=== PATIENT | female | born 1955 | race Caucasian/White ===

== ENCOUNTER 2020-08-24 11:00 | Outpatient (RCR) | payer MEDICARE, SELFPAY | END 2020-08-26 23:55 | disposition home or self-care (01) | LOC: HO.PAOS 11:00 | PROVIDERS: Visit Provider Counselor Mental Health | DX: F32.9 Major depressive disorder, single episode, unspecified (principal) | CPT/HCPCS: 90834 ==

== ENCOUNTER 2021-07-01 10:48 | Outpatient (REF) | payer MEDICARE, SELFPAY ==
[2021-07-01 11:09] LABS: MANUAL DIFF FLAG NO
[2021-07-01 11:49] LABS: Basophils Percent Auto 0.6 % (0-2); Eosinophils Absolute Auto 0.1 X10*3/uL (0.0-0.4); Eosinophils Percent Auto 2.2 % (0-4); Hematocrit 46.8 % (37-47); Hemoglobin 15.5 g/dl (12.0-16.0); Imm Gran Abs Auto 0.01 X10*3/uL (0.00-0.03); Imm Gran Pct Auto 0.2 % (0.0-0.4); Lymphocytes Absolute Auto 2.1 X10*3/uL (1.2-4.9); Lymphocytes Percent Auto 39.8 % (20-40); Mean Corpuscular HGB Conc 33.1 g/dl (31.0-35.0); Mean Corpuscular Volume 96.7 fL (80-98); Mean Platelet Volume 11.3 fL (9.4-12.3); Monocytes Absolute Auto 0.5 X10*3/uL (0.1-1.2); Monocytes Percent Auto 9.3 % (2-11); Neutrophils Absolute Auto 2.6 X10*3/uL (2.0-8.3); Neutrophils Percent Auto 47.9 % (45-73); Platelet Count 152 X10*3/uL (160-400); Red Blood Count 4.84 X10*6/uL (4.20-5.50); Red Cell Distribution Width 12.6 % (11.0-16.0); White Blood Count 5.4 X10*3/uL (4.8-10.8)
[2021-07-01 12:20] LABS: Alanine Aminotransferase 40 U/L (0-31); Albumin Level 4.1 g/dL (3.5-5.0); Alkaline Phosphatase 90 U/L (39-117); Anion Gap 12 (12-20); Aspartate Amino Transferase 42 U/L (5-31); Bilirubin Total 0.9 mg/dL (0.0-1.0); Blood Urea Nitrogen 15 mg/dL (9-16); Calcium 9.5 mg/dL (8.4-10.2); Carbon Dioxide 29 mmol/L (22-29); Chloride 107 mmol/L (96-108); Cholesterol 183 mg/dL; Estimated Glomerular Filt Rate 48; Glucose Fasting 126 mg/dL (60-99); HDL Cholesterol 33 mg/dL; LDL Cholesterol Calculated 109 mg/dl; Potassium 4.5 mmol/L (3.3-5.1); Sodium 143 mmol/L (135-145); Total Protein 7.3 g/dL (6.5-8.0); Triglycerides 208 mg/dL
[2021-07-01 12:24] LABS: Thyroid Stimulating Hormone 3.06 uIU/mL (0.32-4.0)
== END 2021-07-01 10:49 | disposition home or self-care (01) ==
LOC: HO.LAB 10:48
PROVIDERS: PCP Internal Medicine; Visit Provider Internal Medicine
DX: Z00.00 Encounter for general adult medical examination without abnormal findings (principal); E03.9 Hypothyroidism, unspecified; E11.9 Type 2 diabetes mellitus without complications
CPT/HCPCS: 36415; 80053; 80061; 84443; 85025

== ENCOUNTER 2021-09-30 10:21 | Outpatient (REF) | payer MEDICARE, SELFPAY ==
[2021-09-30 10:45] LABS: MANUAL DIFF FLAG NO
[2021-09-30 11:22] LABS: Basophils Percent Auto 0.5 % (0-2); Eosinophils Absolute Auto 0.1 X10*3/uL (0.0-0.4); Eosinophils Percent Auto 1.6 % (0-4); Hematocrit 50.2 % (37.0-47.0); Hemoglobin 16.7 g/dl (12.0-16.0); Imm Gran Abs Auto 0.01 X10*3/uL (0.00-0.03); Imm Gran Pct Auto 0.2 % (0.0-0.4); Lymphocytes Absolute Auto 2.3 X10*3/uL (1.2-4.9); Lymphocytes Percent Auto 39.3 % (20-40); Mean Corpuscular HGB Conc 33.3 g/dl (31.0-35.0); Mean Corpuscular Hemoglobin 31.9 pg (27.0-33.0); Mean Platelet Volume 10.9 fL (9.4-12.3); Monocytes Absolute Auto 0.5 X10*3/uL (0.1-1.2); Monocytes Percent Auto 8.5 % (2-11); Neutrophils Absolute Auto 2.9 x10*3/uL (2.0-8.3); Neutrophils Percent Auto 49.9 % (45-73); Platelet Count 191 X10*3/uL (160-400); Red Blood Count 5.23 X10*6/uL (4.20-5.50); Red Cell Distribution Width 12.4 % (11.0-16.0); White Blood Count 5.8 X10*3/uL (4.8-10.8)
[2021-09-30 11:50] LABS: Alanine Aminotransferase 40 U/L (0-31); Albumin Level 4.2 g/dL (3.5-5.0); Alkaline Phosphatase 78 U/L (39-117); Anion Gap 13 (12-20); Aspartate Amino Transferase 45 U/L (5-31); Bilirubin Direct 0.5 mg/dL (0.0-0.5); Bilirubin Total 1.5 mg/dL (0.0-1.0); Blood Urea Nitrogen 14 mg/dL (9-16); C Reactive Protein 0.13 mg/dL (< or = 0.50); Calcium 9.8 mg/dL (8.4-10.2); Carbon Dioxide 27 mmol/L (22-29); Chloride 107 mmol/L (96-108); Estimated Glomerular Filt Rate 45; Glucose Random 115 mg/dL (60-115); Potassium 4.2 mmol/L (3.3-5.1); Sodium 143 mmol/L (135-145); Total Protein 7.7 g/dL (6.5-8.0)
[2021-09-30 12:07] LABS: Erythrocyte Sedimentation Rate 4 MM/HR (0-20)
[2021-10-01 12:57] LABS: Gliadin Deamidated IgA Ab <1.0 U/mL; Gliadin Deamidated IgG Ab <1.0 U/mL; Transglutaminase Ab IgG <1.0 U/mL; Transglutaminase IgA <1.0 U/mL
[2021-10-01 13:32] LABS: Immunoglobulin A 363 mg/dL (70-320)
[2021-10-05 13:05] LABS: Endomysial IgA Antibody Negative (Negative)
== END 2021-09-30 10:22 | disposition home or self-care (01) ==
LOC: HO.LAB 10:21
PROVIDERS: PCP Internal Medicine; Visit Provider Internal Medicine
DX: R19.7 Diarrhea, unspecified (principal)
CPT/HCPCS: 36415; 80048; 80076; 82784; 85025; 85652; 86140; 86231; 86258; 86364

== ENCOUNTER 2021-10-17 15:41 | Outpatient (REF) | payer MEDICARE, SELFPAY ==
--- NOTE | ~2021-10-17 | XR_ITS ---
EXAMINATION: XR ANKLE, RIGHT CLINICAL INFORMATION: Right ankle pain and lateral swelling for 6 days. No known injury. COMPARISON: None TECHNIQUE: AP, lateral, and mortise views of the right ankle. FINDINGS: There is mild soft tissue swelling, greater on lateral side. The bony structures appear intact and show no fracture, dislocation, or destructive reactive process. There is normal bony mineralization. No periarticular demineralization. No periostitis. There is mild spurring involving the distal anterior and posterior tibia and caudal tip medial malleolus. The ankle joint shows no narrowing or erosive change or definite chondrocalcinosis. There is no erosive change. Visualized subtalar joint unremarkable. There are small posterior and moderate plantar calcaneal spurs. Scattered benign mineralization is present within the mid Achilles tendon consistent with calcific tendinosis. The retrocalcaneal recess is preserved. XR/XR ankle RT 2V IMPRESSION: 1. No fracture, dislocation, destructive process, or arthropathy. 2. Posterior and plantar calcaneal spurs. 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
== END 2021-10-17 15:42 | disposition home or self-care (01) ==
LOC: HO.XRAY 15:41
PROVIDERS: PCP Internal Medicine; Visit Provider Internal Medicine
DX: M25.571 Pain in right ankle and joints of right foot (principal)
CPT/HCPCS: 73600

== ENCOUNTER → 2021-11-17 14:06 | Outpatient (BNVA) | payer MEDICARE, SELFPAY | PROVIDERS: PCP Internal Medicine; Visit Provider Urology | DX: Z13.89 Encounter for screening for other disorder (principal) ==

== ENCOUNTER 2021-12-29 10:19 | Outpatient (REF) | payer MEDICARE, SELFPAY ==
--- NOTE | ~2021-12-29 | US_ITS ---
EXAMINATION: US ABDOMEN COMPLETE CLINICAL INFORMATION: Unspecified abdominal pain. COMPARISON: CT abdomen and pelvis 10/01/2019. Ultrasound abdomen 07/09/2017. TECHNIQUE: Real-time imaging of the abdominal viscera. FINDINGS: PANCREAS: Normal head and body. The tail is obscured by bowel gas. ABDOMINAL AORTA: The proximal, mid, and distal segments are normal in caliber. INFERIOR VENA CAVA: Visualized portions are normal. LIVER: The liver is normal in size. The liver contour is normal. There is diffuse increased liver parenchymal echogenicity, suggestive of hepatic steatosis. No focal hepatic lesion. There is no intrahepatic biliary duct dilatation seen. GALLBLADDER: Surgically absent. COMMON BILE DUCT: Normal in caliber measuring 0.8 cm in diameter. RIGHT KIDNEY: Normal. No hydronephrosis. No renal calculi or focal parenchymal lesions. The kidney measures 10.8 cm in maximum dimension. LEFT KIDNEY: There is a simple cyst in the lower pole measuring up to 0.9 cm. No hydronephrosis or renal calculi. The kidney measures 11.7 cm in maximum dimension. SPLEEN: Normal. The spleen measures 9.0 cm in maximum dimension. FREE FLUID: None. US/US abdomen complete IMPRESSION: Again demonstrated is an echogenic liver, likely representing hepatic steatosis. Again demonstrated is a 0.9 cm simple appearing cyst in the lower pole of the left kidney, for which no further follow-up is necessary.
== END 2021-12-29 10:20 | disposition home or self-care (01) ==
LOC: HO.US 10:19
PROVIDERS: Visit Provider Internal Medicine
DX: R10.9 Unspecified abdominal pain (principal)
CPT/HCPCS: 76700

== ENCOUNTER → 2022-01-11 15:50 | Outpatient (BNVA) | payer MEDICARE, SELFPAY | PROVIDERS: PCP Internal Medicine; Visit Provider Urology | DX: Z13.89 Encounter for screening for other disorder (principal) | CPT/HCPCS: Q3014 ==

== ENCOUNTER 2022-01-16 06:37 | Day surgery (SDC) | payer MEDICARE, SELFPAY ==
[2022-01-11 08:17] VITALS: BMI 36.8
--- NOTE | 2022-01-13 10:19 | P.CONAN_ITS ---
Documented by User: Nereida Mera NP 01/13/22 10:20 HPI - Anesthesia Eval Consult details Narrative: 66yo F for Interstim Generator Implant and lead change PMFSH Active Problems Active Problems: All Active Problems (Updated 01/11/22 @ 16:10 by Jeffy Lutz MD) Overactive bladder (Acute) Sinusitis (Acute) Abdominal pain (Acute) Obesity (Acute) Hypertension (Acute) Past Medical History Medical History Anxiety Breast cancer, right Depression Graves disease History of stress incontinence Hypertension Obesity Family History Family History Father Diabetes Mother Hypertension Throat cancer Maternal Grandmother Diabetes Maternal Uncle Cancer Surgical History Surgical History History of arthroscopy of right knee History of carpal tunnel release History of cholecystectomy History of D&C History of hip replacement History of inguinal hernia repair History of lumpectomy of right breast History of surgery History of tonsillectomy History of total abdominal hysterectomy and bilateral salpingo-oophorectomy History of wisdom tooth extraction Hx of colonoscopy Hx of total mastectomy of right breast Social History Social History Housing: House Alcohol intake: never Patient Tobacco Use Status: Never used Tobacco e-Cigarette/Vaping Use: Never Used Second Hand Smoke Exposure: No Use of substances other than those prescribed or required for medical reasons: No Are you DNR?: No Advance Directives: No Advance Directives Information Provided: Yes Recently lost weight without trying: No Nutrition Risks: No Nutritional Risk service: No Current occupational status: retired Current occupational exposures/hazards: No Cognitive needs: No Hearing needs: No Vision needs: No Meds Allergies Allergy/AdvReac Type Severity Reaction Status Date / Time lactose [LACTOSE] Allergy Unknown SEVERE Verified 01/11/22 15:51 DIARRHEA- CRAMPS Home Medications Medication Instructions Recorded Confirmed Last Taken Type omeprazole 20 mg capsule,delayed 20 mg PO DAILY 07/15/20 01/11/22 01/16/22 History release amoxicillin 500 mg capsule 4 cap PO 01/16/22 01/16/22 History Exam Exam Date and Time: January 13, 2022 1019 Height,Weight and Vital Signs: Height 5 ft 8 in Weight 109.769 kg Pertinent Lab Results Pertinent Lab Results: Laboratory Tests 09/30/21 09/30/21 10:42 10:42 WBC 5.8 Hgb 16.7 H Hct 50.2 H Plt Count 191 Sodium 143 Potassium 4.2 Chloride 107 Carbon Dioxide 27 BUN 14 Creatinine 1.21 Assessment and Plan Assessment Anesthesia Assessment: Chart Reviewed Documented by User: Jenelle Quintero MD 01/16/22 08:37 [facility] Past Medical History Medical History Anxiety Breast cancer, right Depression Graves disease History of stress incontinence Hypertension Obesity Family History Family History Father Diabetes Mother Hypertension Throat cancer Maternal Grandmother Diabetes Maternal Uncle Cancer Surgical History Surgical History History of arthroscopy of right knee History of carpal tunnel release History of cholecystectomy History of D&C History of hip replacement History of inguinal hernia repair History of lumpectomy of right breast History of surgery History of tonsillectomy History of total abdominal hysterectomy and bilateral salpingo-oophorectomy History of wisdom tooth extraction Hx of colonoscopy Hx of total mastectomy of right breast History of Problems with Anesthesia: No Social History Social History Housing: House Alcohol intake: never Patient Tobacco Use Status: Never used Tobacco e-Cigarette/Vaping Use: Never Used Second Hand Smoke Exposure: No Use of substances other than those prescribed or required for medical reasons: No Are you DNR?: No Advance Directives: No Advance Directives Information Provided: Yes Recently lost weight without trying: No Nutrition Risks: No Nutritional Risk service: No Current occupational status: retired Current occupational exposures/hazards: No Cognitive needs: No Hearing needs: No Vision needs: No Meds Allergies Allergy/AdvReac Type Severity Reaction Status Date / Time lactose [LACTOSE] Allergy Unknown SEVERE Verified 04/27/22 15:51 DIARRHEA- CRAMPS Home Medications Medication Instructions Recorded Confirmed Last Taken Type omeprazole 20 mg capsule,delayed 20 mg PO DAILY 07/15/20 01/11/22 01/16/22 History release amoxicillin 500 mg capsule 4 cap PO 01/16/22 01/16/22 History Exam Airway Mallampati Class: III TM Dist: >3cm Neck ROM: Full Loose/Missing/Broken Teeth: No Heart: RRR Lungs: CTA Assessment and Plan Assessment Anesthesia Assessment: Anesthesia Plan Discussed Final Anesthetic Review History of Problems with Anesthesia: No NPO: Yes ASA Class: II Final Preanesthetic Review: Meds/Allgs Chart Reviewed, Consent Obtained/Reviewed and Anes Risks/Benef Reviewed Patient Risk: Low Procedure Risk: Low Anesthetic Plan Anesthetic Plan: MAC: Disposition: Standard PACU
--- NOTE | ~2022-01-16 | FL_ITS ---
EXAMINATION: XR FLUOROSCOPY WITH IMAGES CLINICAL INFORMATION: InterStim generator implant COMPARISON: CT abdomen and pelvis noncontrast 10/01/2019 TECHNIQUE: Fluoroscopy performed by Dr. Jeffy Lutz. Fluoroscopy time: 1.7 minutes Cumulative dose: 102.10 mGy Images: 2 FINDINGS: There is an electrode overlying the lumbosacral spine with tip at left sacral coccygeal foramen extending just anterior to the bony cortex. There is likely a surgical sponge overlying the lower lumbar spine on frontal view. There is transitional vertebrae lumbosacral junction with left hemisacralization right hemilumbarization. FL/FL guidance in OR IMPRESSION: Fluoroscopy for urologic procedure.
[2022-01-16 06:59] VITALS: BMI 36.8
[2022-01-16 07:12] VITALS: BP 121/68; PULSE 57; RESP 16; TEMP 35.7; O2SAT 97
[2022-01-16] MEDS: Lactated Ringers 1,000 ML 100 ML IVCONT (07:29)
--- NOTE | 2022-01-16 07:53 | MHC.SHP ---
Pre-Procedural Eval Section A Date of Service: 01/16/22 The patient is an INPATIENT: No Changes since office visit: No Cold of Flu in the past 2 weeks, No New Medical Problems, No Changes in Medication and No Patient answered all questions The History & Physical has been completed within 30 days and I have reviewed it.: Yes Section B Chief Complaint: urge incontinence Details of Present Illness: chnage interstim, hardware Allergies: Allergies Allergy/AdvReac Type Severity Reaction Status Date / Time lactose [LACTOSE] Allergy Unknown SEVERE Verified 01/11/22 15:51 DIARRHEA- CRAMPS Review of Systems Sugical H&P ROS: Negative: Constitution, Cardiovascular, Respiratory, Neurological, Psychiatric, Hem-Onc, Allergic/Immunologic, Gastrointestinal, Genitourinary, Musculoskeletal, Integumentary, Endocrine and Eyes/Ears/Nose/Throat Exam Surgical H&P Exam: Normal: HEENT, Normal: Heart, Normal: Lungs, Normal: Extremities, Normal: Abdomen, Normal: Skin and Normal: Neurological Plan Diagnosis/Plan: Unchanged I have reviewed the history and physical and performed a pertinent physical examination on my patient. No changes have occurred unless specified.
[2022-01-16 09:30] VITALS: BP 112/70; PULSE 59; RESP 16; TEMP 36.4; O2SAT 98
--- NOTE | 2022-01-16 09:36 | W.PM.OPN ---
Operative Note Operative Note Date of Service: 01/16/22 Narrative: PreOperative Diagnosis: Overactive bladder with urinary urgency and frequency Post Operative Diagnosis: Overactive bladder with urinary urgency and frequency Procedure: 1.) Removal of InterStim lead 2.) Removal of InterStim battery 3.) Placement of InterStim lead 4.) Placement of InterStim battery Surgeon: Dr Jeffy Lutz Anesthesia: sedation Indications for procedure: failed battery - had worked well for 10 years Procedure: After informed consent was verified the patient was brought to the operating room. Sedation anesthesia was administered per protocol. The patient was placed in a prone position and prepped and draped in a sterile fashion. Safety pause time-out was performed. Local anesthetic was infiltrated around the initial battery pocket incision on the right lateral superior buttock. Incision was made and taken down till the battery was encountered. The battery pocket was opened and a battery brought out to the skin. Using the C-arm and a snap the lead entering S3 on the right side was targeted. Local anesthetic was infiltrated around the prior incision and incision made through the skin. Using blunt dissection the original lead was isolated and brought up through our skin incision. This was get disconnected from the battery to give us the full lead in the sacral position. The lead was dissected down until we could palpate the transition to the thickened plastic. Using a right angle clamp we were able to fully withdrawal the old lead from its position in the S3 foramen. Using the C-arm in an AP and lateral view the finding needle was introduced into the S3 foramen running from a caudad to chordal direction. Using the communications lead we could confirm good toe movement and Hanane response. The internal introducer from the needle was removed and the control lead placed. The find needle was removed and the dilator sheath introduced. Under fluoroscopic guidance the dilator sheath was advanced till the marker was seen mid point through the sacral bone on the lateral image. The internal cannula from the dilator was removed. The guidewire was removed. The active lead was then introduced through the dilator sheath and advanced so that the 3rd and 4th marked electrodes crossed the internal boundary line of the sacrum. The testing electrode was then hooked up to each of the wire electrodes 0 through 3 and good Hanane and toe response is was seen at low amplitude 2.0 amps. This confirmed the clinically relevant position of the live wire. Wire was repositioned for more downward angle and retested in position. Under live fluoroscopy the introducer sheath was removed deploying the tines of the wire ensuring that the live wire remained in the previously described position. The tunneling device was then used to bridge the distance between the sacral vertical incision and the desired location of the battery pocket. The live wire was placed through the tunneling device and brought out into the battery pocket. The sacral incision was washed with water. A new battery was connected to the live wire and placed into the subcutaneous pocket. The battery was tested and had positive continuous pickling line pickler and displayed normal impedance on all 4 channels. The battery pocket had been washed with sterile water prior to placement of the battery. Interrupted 3-0 Vicryl sutures were used to close the defect spaces and bring skin edges together. Running 4-0 Monocryl sutures were used to appose skin edges. Incisions were dressed using skin glue followed by Tegaderm dressing. Patient tolerated procedure well was extubated in operating room transferred in stable condition to the recovery area. CPT full device replacement 58505, 20327, [id number] Levels for Motor Effect - 0 - 0.7 - 1 - 0.7 - 2 - 0.9 - 3 - 1.0
[2022-01-16 09:45] VITALS: BP 111/60; PULSE 55; RESP 16; O2SAT 96
[2022-01-16 10:00] VITALS: BP 117/67; PULSE 55; RESP 16; TEMP 36.3; O2SAT 96
[2022-01-16 10:13] VITALS: BP 119/68; PULSE 55; RESP 16; TEMP 36.3; O2SAT 96
== END 2022-01-16 11:25 | disposition home or self-care (01) ==
PROVIDERS: PCP Internal Medicine; Visit Provider Urology
PROC: (CPT 64590; principal; 2022-01-16 08:30)
DX: N39.41 Urge incontinence (principal); N39.3 Stress incontinence (female) (male); N32.81 Overactive bladder; R35.0 Frequency of micturition; F41.1 Generalized anxiety disorder; Z85.3 Personal history of malignant neoplasm of breast; E05.00 Thyrotoxicosis with diffuse goiter without thyrotoxic crisis or storm; I10 Essential (primary) hypertension; E66.9 Obesity, unspecified; Z79.899 Other long term (current) drug therapy
CPT/HCPCS: 64590; 64561; C1767; C1778; C1787; J0690; J2250; J3010

== ENCOUNTER → 2022-02-02 10:51 | Outpatient (BNVA) | payer MEDICARE, SELFPAY | PROVIDERS: PCP Internal Medicine; Visit Provider Urology | DX: Z13.89 Encounter for screening for other disorder (principal) ==

== ENCOUNTER 2022-06-23 09:08 | Outpatient (REF) | payer MEDICARE, SELFPAY ==
[2022-06-23 09:24] LABS: MANUAL DIFF FLAG NO
[2022-06-23 09:53] LABS: Basophils Percent Auto 0.5 % (0-2); Eosinophils Absolute Auto 0.1 X10*3/uL (0.0-0.4); Hematocrit 47.2 % (37.0-47.0); Hemoglobin 15.8 g/dl (12.0-16.0); Imm Gran Abs Auto 0.01 X10*3/uL (0.00-0.03); Imm Gran Pct Auto 0.2 % (0.0-0.4); Lymphocytes Absolute Auto 2.9 X10*3/uL (1.2-4.9); Lymphocytes Percent Auto 43.4 % (20-40); Mean Corpuscular HGB Conc 33.5 g/dl (31.0-35.0); Mean Corpuscular Hemoglobin 31.9 pg (27.0-33.0); Mean Corpuscular Volume 95.2 fL (80.0-98.0); Mean Platelet Volume 11.2 fL (9.4-12.3); Monocytes Absolute Auto 0.6 X10*3/uL (0.1-1.2); Monocytes Percent Auto 9.7 % (2-11); Neutrophils Absolute Auto 2.9 x10*3/uL (2.0-8.3); Neutrophils Percent Auto 44.2 % (45-73); Platelet Count 176 X10*3/uL (160-400); Red Blood Count 4.96 X10*6/uL (4.20-5.50); Red Cell Distribution Width 12.7 % (11.0-16.0); White Blood Count 6.6 X10*3/uL (4.8-10.8)
[2022-06-23 10:34] LABS: Alanine Aminotransferase 26 U/L (0-31); Albumin Level 4.3 g/dL (3.5-5.0); Alkaline Phosphatase 89 U/L (39-117); Anion Gap 15 (12-20); Aspartate Amino Transferase 33 U/L (5-31); Bilirubin Total 0.9 mg/dL (0.0-1.0); Blood Urea Nitrogen 22 mg/dL (9-16); Calcium 9.4 mg/dL (8.4-10.2); Carbon Dioxide 28 mmol/L (22-29); Chloride 105 mmol/L (96-108); Cholesterol 176 mg/dL; Estimated Glomerular Filt Rate 46; Glucose Fasting 115 mg/dL (60-99); HDL Cholesterol 35 mg/dL; LDL Cholesterol Calculated 99 mg/dl; Potassium 4.6 mmol/L (3.3-5.1); Sodium 143 mmol/L (135-145); Total Protein 7.5 g/dL (6.5-8.0); Triglycerides 211 mg/dL
[2022-06-23 11:00] LABS: Thyroid Stimulating Hormone 3.82 uIU/mL (0.32-4.0)
== END 2022-06-23 09:09 | disposition home or self-care (01) ==
LOC: HO.LAB 09:08
PROVIDERS: PCP Internal Medicine; Visit Provider Internal Medicine
DX: Z13.0 Encounter for screening for diseases of the blood and blood-forming organs and certain disorders involving the immune mechanism (principal); E03.9 Hypothyroidism, unspecified; E78.5 Hyperlipidemia, unspecified; I10 Essential (primary) hypertension
CPT/HCPCS: 36415; 80053; 80061; 84443; 85025

== ENCOUNTER 2022-07-21 11:00 | Outpatient (RCR) | payer MEDICARE, SELFPAY ==
[2022-05-25 11:14] VITALS: BP 124/70
== END 2022-07-24 13:41 | disposition home or self-care (01) ==
LOC: HO.PT 11:00
PROVIDERS: Visit Provider Physician Assistant
DX: M70.62 Trochanteric bursitis, left hip (principal)
CPT/HCPCS: 97110; 97140; 97161; 97530

== ENCOUNTER 2022-09-05 08:22 | Observation (INO) | payer MEDICARE, SELFPAY ==
[2022-09-05] VITALS (8 sets, daily range): BP systolic 90–135; BP diastolic 48–74; PULSE 55–72; RESP 17–21; TEMP 36.1–37.1; O2SAT 96–97; BMI 38.2
--- NOTE | ~2022-09-05 | XR_ITS ---
EXAMINATION: XR CHEST CLINICAL INFORMATION: Cough COMPARISON: Chest x-ray 11/15/2015 TECHNIQUE: Frontal view of the chest was obtained. FINDINGS: Cardiac silhouette is normal in size. The lungs are adequately aerated. There is mild asymmetric elevation right hemidiaphragm. There is no lobar consolidation. No pleural effusion or pneumothorax. XR/XR chest 1V IMPRESSION: No acute pulmonary pathology.
--- NOTE | 2022-09-05 08:27 | ECG_ITS ---
Test Reason : cough/chest pain Blood Pressure : / mmHG Vent. Rate : 059 BPM Atrial Rate : 059 BPM P-R Int : 170 ms QRS Dur : 090 ms QT Int : 440 ms P-R-T Axes : 043 -13 000 degrees QTc Int : 435 ms Sinus bradycardia with sinus arrhythmia Nonspecific ST and T wave abnormality Abnormal ECG When compared with ECG of 15-NOV-2015 12:06, T wave inversion now evident in Anterior leads Referred By: Generic ED Physician Electronically Signed By:Angel Browning
--- NOTE | 2022-09-05 09:29 | ED_ITS ---
HPI - General Adult General Chief complaint: General Medical Stated complaint: Chest pain Time Seen by Provider: 09/05/22 09:23 Source: patient and family (Son, Tavo who is a top and seat cover fitter) Mode of arrival: ambulatory Limitations: no limitations History of Present Illness HPI narrative: 67-year-old female who presents emergency department for evaluation of chest pain that woke her from sleep. She states the pain woke her up at 07:00 hours. She describes the pain as a heaviness is if an elephant was sitting on her chest. The pain was 8/10. The pain was worse with breathing. She did feel short of breath. She denied lightheadedness, dizziness, diaphoresis, nausea, vomiting, radiation of the pain to her neck, jaw, arms or back. Patient's son took her blood pressure and it was 151/88 the heart rate of 60. He gave her 2 Tylenol orally which did not relieve the pain. At the time of my evaluation she states the pain is 8/10. Patient states that she was ill 2 weeks prior with cold-like symptoms which included rhinorrhea, nonproductive cough, shortness of breath with coughing. She denied dyspnea on exertion, nausea, vomiting, diarrhea. Onset (ago): hour(s) (2 09/18) Location: chest Radiation: non-radiation Severity: severe Severity scale (1-10): 8 Quality: crushing (Heaviness) Pain Consistency: constant Relieving factors: none Exacerbating factors: other (Breathing) Associated symptoms: shortness of breath Treatments prior to arrival: other (Tylenol) Related Data Home Medications Medication Instructions Recorded Confirmed cholecalciferol (vitamin D3) 50 50 mcg PO DAILY 09/05/22 09/05/22 mcg (2,000 unit) tablet (Vitamin D3) multivitamin 1 tab PO DAILY 09/05/22 09/05/22 omeprazole 20 mg capsule,delayed 20 mg PO DAILY@0630 09/05/22 09/05/22 release Previous Rx's Medication Instructions Recorded atenolol 100 mg tablet 100 mg PO DAILY #90 tabs 12/07/21 lorazepam 0.5 mg tablet 0.5 mg PO DAILY PRN anxiety #60 02/09/22 tabs bupropion HCl 200 mg tablet,12 hr 200 mg PO BID #180 tabs 02/27/22 sustained-release Allergies Allergy/AdvReac Type Severity Reaction Status Date / Time lactose [LACTOSE] Allergy Unknown SEVERE Verified 06/22/22 13:21 DIARRHEA- CRAMPS Review of Systems Review of Systems: Yes all other systems are reviewed and are negative [facility] Past Medical History Medical History Anxiety Breast cancer, right Depression Graves disease History of stress incontinence Hypertension Obesity Surgical History History of arthroscopy of right knee History of carpal tunnel release History of cholecystectomy History of D&C History of hip replacement History of inguinal hernia repair History of lumpectomy of right breast History of surgery History of tonsillectomy History of total abdominal hysterectomy and bilateral salpingo-oophorectomy History of wisdom tooth extraction Hx of colonoscopy Hx of total mastectomy of right breast Family History Family History Father Diabetes Mother Hypertension Throat cancer Maternal Grandmother Diabetes Maternal Uncle Cancer Social History Social History Housing: House Alcohol intake: never Patient Tobacco Use Status: Never used Tobacco Smoked in Last 30 Days: No e-Cigarette/Vaping Use: Never Used Second Hand Smoke Exposure: No Use of substances other than those prescribed or required for medical reasons: No Advance Directives: No Advance Directives Information Provided: Yes Patient : No service: No Current occupational status: retired Current occupational exposures/hazards: No Cognitive needs: No Hearing needs: No Vision needs: No Physical Exam ED Vital Signs: Vital Signs - 24 hr 09/05/22 08:24 09/05/22 09:52 09/05/22 09:57 Temperature 96.9 F Pulse Rate 62 62 62 Respiratory Rate 18 18 Blood Pressure 125/74 135/72 135/72 Pulse Oximetry 96 97 Oxygen Delivery Method Room Air Room Air 09/05/22 10:03 09/05/22 10:07 09/05/22 13:31 Temperature Pulse Rate 62 55 66 Respiratory Rate 17 Blood Pressure 117/71 90/48 L 114/57 L Pulse Oximetry 96 Oxygen Delivery Method Room Air 09/05/22 14:16 Temperature Pulse Rate 63 Respiratory Rate 21 H Blood Pressure 101/58 L Pulse Oximetry 96 Oxygen Delivery Method Room Air BMI result Body Mass Index 38.2 Const General: cooperative and no acute distress Orientation/consciousness: oriented to person and oriented to place Limitations: no limitations HENMT Head: Yes normal to inspection, Yes normocephalic and Yes atraumatic Ears: external ears normal General nose exam: Normal external nose present Face and sinus: Yes normal facial exam Mouth: Normal oral and palatal mucosa present Throat: Yes posterior oropharynx normal Eyes General: appearance normal, both eyes and all related structures Pupils: Equal, round and reactive pupils present Neck Neck: Yes normal visual inspection, Yes no lymphadenopathy, Yes trachea midline and Yes supple Chest Chest palpation & inspection: normal inspection of the chest and normal palpation of entire chest wall Resp Effort & Inspection: normal respiratory effort and able to speak in complete sentences Auscultation: clear to auscultation bilaterally Cardio Rate: regular rate Rhythm: regular rhythm Heart sounds: S1 normal heart sound present, S2 normal heart sound present and no murmurs GI Inspection: Yes normal to inspection Palpation (GI): Soft to palpation, nontender and no guarding Auscultation: normal bowel sounds General: Yes no CVA tenderness Back/Spine/Pelvis Back: no CVA tenderness Skin General skin exam: no rashes or lesions noted Neuro General: oriented to person and oriented to place Cranial nerves: Yes CN's II-XII intact bilaterally and Yes Equal, round and reactive pupils present Cognition (Neuro): normal cognition Motor exam (neuro): 5/5 motor strength present throughout Extrem General: Yes normal to inspection Psych Appearance: grossly normal Speech and movement: Normal speech and movement present Affect: normal affect Attitude: cooperative Thought process: Normal thought process present Thought content: Normal thought content present Course Course Course Narrative: 67-year-old female who presents emergency department for evaluation of sternal abdominal heaviness which woke her up from sleep at 07:00 hours, the pain was 8/10 at onset and was 8/10 at the time my evaluation. Patient states the pain was worse with breathing, she did feel short of breath as well otherwise had no other symptoms. Patient's vital signs in the emergency department were normal, she was hypertensive on onset based on her signs and vital signs (blood pressure 151/88, heart rate 60). Patient's exam was unremarkable. Patient's 12 EKG however revealed inverted T-waves V1 through V3 as well as an inverted T-wave in lead 3 compared to EKG dated 10/26/2015 the inverted T-waves are new in leads 3, 2 and 3. Patient was ordered to get aspirin 324 mg orally and sublingual nitroglycerin 1023: The patient was given nitroglycerin 0.4 mg Q 5 minutes x2, her pain went from 8/10 to 4/10 however her systolic blood pressure came down to 90 and she felt lightheaded. Patient was given a 500 cc fluid bolus pain which was ordered to get fentanyl 25 mcg IV. 1523: Laboratory evaluation: CBC was normal. D-dimer was not elevated 191. BMP was normal 79. Troponin 1 was 3.1. Repeat troponin greater than 3 hours was less than 3.5. COVID, influenza and RSV were negative. Laboratory evaluation: Chest x-ray was negative. The patient got some improvement with 2 sublingual nitroglycerins, her pain went from 8/10 to 5/10 however she did become hypotensive and required a L of normal saline bolus. She was then given fentanyl 25 mcg IV with complete resolution of her pain. D-dimer was normal which is a good negative predictor for pulmonary embolism. The patient's negative troponins suggests that she has not had myocardial injury. Given her onset of pain at rest, her EKG abnormalities, I am concerned that her pain may be secondary to new onset angina. I discuss the patient's presentation with the covering cashiers bussers food runners Dr. Browning. 1536: I did discuss the patient with the covering cashiers bussers food runners, Dr. Browning. He believes that the EKG changes are nonspecific and he is occurs that the troponins were not elevated however he agreed that the patient should be admitted for further evaluation of her chest pain syndrome. He requested adding a CRP and ESR. He recommended against heparin. I will discuss admission with the covering hospitalist. 1758: I did discuss the patient with the covering hospitalist, Dr Carter. Patient was also seen by the covering cashiers bussers food runners to wants the patient NPO after midnight for a [place] stress test tomorrow morning. Patient's 3rd troponin was also below detectable limits which is reassuring Medications Administered Generic Name Dose Route Start Last Admin Trade Name Freq PRN Reason Stop Dose Admin Enoxaparin Sodium 40 mg 09/05/22 17:00 09/05/22 18:04 Enoxaparin Sodium 40 Mg/0.4 Ml Syringe SUBCUT Not Given Q24H BEV Nitroglycerin 0.4 mg 09/05/22 09:40 09/05/22 10:03 Nitroglycerin 0.4 Mg Tab.Subl SUBLINGUAL 0.4 mg [id number] PRN Administration Chest Pain Discontinued Medications Generic Name Dose Route Start Last Admin Trade Name Freq PRN Reason Stop Dose Admin Aspirin 324 mg 09/05/22 09:40 09/05/22 09:53 Aspirin 81 Mg Tab.Chew PO 09/05/22 09:41 324 mg ONCE ONE Administration Fentanyl 25 mcg 09/05/22 10:22 09/05/22 10:45 Fentanyl Citrate/Pf 100 Mcg/2 Ml Vial IVPUSH 09/05/22 10:23 25 mcg ONCE ONE Administration Protocol Sodium Chloride 1,000 mls @ 125 mls/hr 09/05/22 09:40 09/05/22 12:06 Ns IV 09/05/22 17:39 Infused .Q8H STA Infusion Medical Decision Making Lab Data [facility] Lab Attestation statement: I reviewed the patient's lab results. Result Diagrams: 09/05/22 09:47 09/05/22 09:47 Labs: Lab Results 09/05/22 09/05/22 09/05/22 Range/Units 09:47 09:47 09:47 WBC 10.0 (4.8-10.8) X10*3/uL RBC 4.73 (4.20-5.50) X10*6/uL Hgb 15.1 (12.0-16.0) g/dl Hct 44.4 (37.0-47.0) % MCV 93.9 (80.0-98.0) fL MCH 31.9 (27.0-33.0) pg MCHC 34.0 (31.0-35.0) g/dl RDW 12.3 (11.0-16.0) % Plt Count 205 (160-400) X10*3/uL MPV 10.1 (9.4-12.3) fL Immature Gran % (Auto) 0.3 (0.0-0.4) % Neut % (Auto) 69.3 (45-73) % Lymph % (Auto) 20.4 (20-40) % [place] % (Auto) 8.6 (2-11) % Eos % (Auto) 0.9 (0-4) % Baso % (Auto) 0.5 (0-2) % Lymph # (Auto) 2.0 (1.2-4.9) X10*3/uL [place] # (Auto) 0.9 (0.1-1.2) X10*3/uL Eos # (Auto) 0.1 (0.0-0.4) X10*3/uL Baso # (Auto) 0.1 (0.0-0.2) X10*3/uL Abs Immat Gran (auto) 0.03 (0.00-0.03) X10*3/uL Absolute Neuts (auto) 6.9 (2.0-8.3) x10*3/uL Absolute Nucleated RBC 0.000 (0.0-0.012) X10*3/uL Nucleated RBC % (auto) 0.0 (0.0-0.2) /100WBC ESR (0-20) MM/HR PT 11.9 (10.0-13.1) SEC INR 1.0 (0.9-1.1) APTT 37.3 H (26.0-36.4) SEC D-Dimer High Sensitivty NG/ML Sodium 142 (135-145) mmol/L Potassium 4.0 (3.3-5.1) mmol/L Chloride 106 (96-108) mmol/L Carbon Dioxide 27 (22-29) mmol/L Anion Gap 13 (12-20) BUN 17 H (9-16) mg/dL Creatinine 1.04 (0.5-1.4) mg/dL Estim Creat Clear Calc 69.6 Estimated GFR 53 Random Glucose 103 (60-115) mg/dL Calcium 9.4 (8.4-10.2) mg/dL Total Bilirubin 0.7 (0.0-1.0) mg/dL AST 30 (5-31) U/L ALT 23 (0-31) U/L Alkaline Phosphatase 83 (39-117) U/L Troponin I High Sens (<3.5-17.0) ng/L C-Reactive Protein 0.29 (< or = 0.50) mg/dL B-Natriuretic Peptide (<100) pg/mL Total Protein 7.4 (6.5-8.0) g/dL Albumin 4.0 (3.5-5.0) g/dL Lipase 49 (8-78) U/L Influenza Type A (PCR) (Negative) Influenza Type B (PCR) (Negative) RSV RNA Qual (PCR) (Negative) SARS-CoV-2 RNA (RT-PCR) (Negative) 09/05/22 09/05/22 09/05/22 Range/Units 09:47 09:47 09:47 WBC (4.8-10.8) X10*3/uL RBC (4.20-5.50) X10*6/uL Hgb (12.0-16.0) g/dl Hct (37.0-47.0) % MCV (80.0-98.0) fL MCH (27.0-33.0) pg MCHC (31.0-35.0) g/dl RDW (11.0-16.0) % Plt Count (160-400) X10*3/uL MPV (9.4-12.3) fL Immature Gran % (Auto) (0.0-0.4) % Neut % (Auto) (45-73) % Lymph % (Auto) (20-40) % [place] % (Auto) (2-11) % Eos % (Auto) (0-4) % Baso % (Auto) (0-2) % Lymph # (Auto) (1.2-4.9) X10*3/uL Scre[place] # (Auto) (0.1-1.2) X10*3/uL Eos # (Auto) (0.0-0.4) X10*3/uL Baso # (Auto) (0.0-0.2) X10*3/uL Abs Immat Gran (auto) (0.00-0.03) X10*3/uL Absolute Neuts (auto) (2.0-8.3) x10*3/uL Absolute Nucleated RBC (0.0-0.012) X10*3/uL Nucleated RBC % (auto) (0.0-0.2) /100WBC ESR (0-20) MM/HR PT (10.0-13.1) SEC INR (0.9-1.1) APTT (26.0-36.4) SEC D-Dimer High Sensitivty NG/ML Sodium (135-145) mmol/L Potassium (3.3-5.1) mmol/L Chloride (96-108) mmol/L Carbon Dioxide (22-29) mmol/L Anion Gap (12-20) BUN (9-16) mg/dL Creatinine (0.5-1.4) mg/dL Estim Creat Clear Calc Estimated GFR Random Glucose (60-115) mg/dL Calcium (8.4-10.2) mg/dL Total Bilirubin (0.0-1.0) mg/dL AST (5-31) U/L ALT (0-31) U/L Alkaline Phosphatase (39-117) U/L Troponin I High Sens 3.1 (<3.5-17.0) ng/L C-Reactive Protein (< or = 0.50) mg/dL B-Natriuretic Peptide 79 (<100) pg/mL Total Protein (6.5-8.0) g/dL Albumin (3.5-5.0) g/dL Lipase (8-78) U/L Influenza Type A (PCR) NEGATIVE (Negative) Influenza Type B (PCR) NEGATIVE (Negative) RSV RNA Qual (PCR) NEGATIVE (Negative) SARS-CoV-2 RNA (RT-PCR) NEGATIVE (Negative) 09/05/22 09/05/22 09/05/22 Range/Units 09:47 13:35 16:41 WBC (4.8-10.8) X10*3/uL RBC (4.20-5.50) X10*6/uL Hgb (12.0-16.0) g/dl Hct (37.0-47.0) % MCV (80.0-98.0) fL MCH (27.0-33.0) pg MCHC (31.0-35.0) g/dl RDW (11.0-16.0) % Plt Count (160-400) X10*3/uL MPV (9.4-12.3) fL Immature Gran % (Auto) (0.0-0.4) % Neut % (Auto) (45-73) % Lymph % (Auto) (20-40) % [place] % (Auto) (2-11) % Eos % (Auto) (0-4) % Baso % (Auto) (0-2) % Lymph # (Auto) (1.2-4.9) X10*3/uL [place] # (Auto) (0.1-1.2) X10*3/uL Eos # (Auto) (0.0-0.4) X10*3/uL Baso # (Auto) (0.0-0.2) X10*3/uL Abs Immat Gran (auto) (0.00-0.03) X10*3/uL Absolute Neuts (auto) (2.0-8.3) x10*3/uL Absolute Nucleated RBC (0.0-0.012) X10*3/uL Nucleated RBC % (auto) (0.0-0.2) /100WBC ESR 23 H (0-20) MM/HR PT (10.0-13.1) SEC INR (0.9-1.1) APTT (26.0-36.4) SEC D-Dimer High Sensitivty NG/ML Sodium (135-145) mmol/L Potassium (3.3-5.1) mmol/L Chloride (96-108) mmol/L Carbon Dioxide (22-29) mmol/L Anion Gap (12-20) BUN (9-16) mg/dL Creatinine (0.5-1.4) mg/dL Estim Creat Clear Calc Estimated GFR Random Glucose (60-115) mg/dL Calcium (8.4-10.2) mg/dL Total Bilirubin (0.0-1.0) mg/dL AST (5-31) U/L ALT (0-31) U/L Alkaline Phosphatase (39-117) U/L Troponin I High Sens < 3.5 < 3.5 (<3.5-17.0) ng/L C-Reactive Protein (< or = 0.50) mg/dL B-Natriuretic Peptide (<100) pg/mL Total Protein (6.5-8.0) g/dL Albumin (3.5-5.0) g/dL Lipase (8-78) U/L Influenza Type A (PCR) (Negative) Influenza Type B (PCR) (Negative) RSV RNA Qual (PCR) (Negative) SARS-CoV-2 RNA (RT-PCR) (Negative) 09/05/22 Range/Units Unknown WBC (4.8-10.8) X10*3/uL RBC (4.20-5.50) X10*6/uL Hgb (12.0-16.0) g/dl Hct (37.0-47.0) % MCV (80.0-98.0) fL MCH (27.0-33.0) pg MCHC (31.0-35.0) g/dl RDW (11.0-16.0) % Plt Count (160-400) X10*3/uL MPV (9.4-12.3) fL Immature Gran % (Auto) (0.0-0.4) % Neut % (Auto) (45-73) % Lymph % (Auto) (20-40) % [place] % (Auto) (2-11) % Eos % (Auto) (0-4) % Baso % (Auto) (0-2) % Lymph # (Auto) (1.2-4.9) X10*3/uL [place] # (Auto) (0.1-1.2) X10*3/uL Eos # (Auto) (0.0-0.4) X10*3/uL Baso # (Auto) (0.0-0.2) X10*3/uL Abs Immat Gran (auto) (0.00-0.03) X10*3/uL Absolute Neuts (auto) (2.0-8.3) x10*3/uL Absolute Nucleated RBC (0.0-0.012) X10*3/uL Nucleated RBC % (auto) (0.0-0.2) /100WBC ESR (0-20) MM/HR PT (10.0-13.1) SEC INR (0.9-1.1) APTT (26.0-36.4) SEC D-Dimer High Sensitivty 191 NG/ML Sodium (135-145) mmol/L Potassium (3.3-5.1) mmol/L Chloride (96-108) mmol/L Carbon Dioxide (22-29) mmol/L Anion Gap (12-20) BUN (9-16) mg/dL Creatinine (0.5-1.4) mg/dL Estim Creat Clear Calc Estimated GFR Random Glucose (60-115) mg/dL Calcium (8.4-10.2) mg/dL Total Bilirubin (0.0-1.0) mg/dL AST (5-31) U/L ALT (0-31) U/L Alkaline Phosphatase (39-117) U/L Troponin I High Sens (<3.5-17.0) ng/L C-Reactive Protein (< or = 0.50) mg/dL B-Natriuretic Peptide (<100) pg/mL Total Protein (6.5-8.0) g/dL Albumin (3.5-5.0) g/dL Lipase (8-78) U/L Influenza Type A (PCR) (Negative) Influenza Type B (PCR) (Negative) RSV RNA Qual (PCR) (Negative) SARS-CoV-2 RNA (RT-PCR) (Negative) Independent Interpretation I performed an independent interpretation of an: EKG Interpretation: 0840: Sinus bradycardia rate 59, normal ID interval, QRS duration QTC interval, inverted T-wave in lead 3, inverted T-waves V1, V2 and V3, these inversions are new compared to EKG dated 1730: Normal sinus rhythm rate of 66, normal ID, QRS and QTC interval, inverted T-wave in 3 has resolved. Inverted T-waves in V2 and V3 of resolved, T-wave in V1 is still inverted. Critical Care Time Critical Care Time Critical Care Time: Yes Total Critical Care Time: 45 Attestation: Critical Care: The patient was critically ill with a high probability of imminent or life threatening deterioration. I spent greater than 30 minutes of discontinuous time evaluating the patient,delivering critical care at the bedside, discussing and evaluating pertinent data with consultants. Critical care time does not include time spent performing separately billable procedures or teaching. Total time spent performing critical care was 45 minutes. Discharge Plan Discharge Clinical Impression: Chest pain, Electrocardiogram showing T wave abnormalities Patient Disposition: Admitted As Inpatient Prescriptions: No Action atenolol 100 mg tablet 100 mg PO DAILY Qty: 90 8RF lorazepam 0.5 mg tablet 0.5 mg PO DAILY PRN (Reason: anxiety) Qty: 60 5RF bupropion HCl 200 mg tablet sustained-release 12 hr 200 mg PO BID Qty: 180 5RF multivitamin Tablet 1 tab PO DAILY cholecalciferol (vitamin D3) [Vitamin D3] 50 mcg (2,000 unit) Tablet 50 mcg PO DAILY omeprazole 20 mg capsule,delayed release(DR/EC) 20 mg PO DAILY@0630
[2022-09-05] MEDS: Aspirin 81 MG TAB.CHEW 324 MG PO (09:53)
[2022-09-05] MEDS: 0.9 % Sodium Chloride 1,000 ML 125 ML IV (09:53)
[2022-09-05] MEDS: Nitroglycerin 0.4 MG TAB.SUBL SUBLINGUAL ×2 (09:57→10:03)
[2022-09-05 10:07] LABS: MANUAL DIFF FLAG NO
[2022-09-05 10:09] LABS: Basophils Absolute Auto 0.1 X10*3/uL (0.0-0.2); Basophils Percent Auto 0.5 % (0-2); Eosinophils Absolute Auto 0.1 X10*3/uL (0.0-0.4); Eosinophils Percent Auto 0.9 % (0-4); Hematocrit 44.4 % (37.0-47.0); Hemoglobin 15.1 g/dl (12.0-16.0); Imm Gran Abs Auto 0.03 X10*3/uL (0.00-0.03); Imm Gran Pct Auto 0.3 % (0.0-0.4); Lymphocytes Percent Auto 20.4 % (20-40); Mean Corpuscular Hemoglobin 31.9 pg (27.0-33.0); Mean Corpuscular Volume 93.9 fL (80.0-98.0); Mean Platelet Volume 10.1 fL (9.4-12.3); Monocytes Absolute Auto 0.9 X10*3/uL (0.1-1.2); Monocytes Percent Auto 8.6 % (2-11); Neutrophils Absolute Auto 6.9 x10*3/uL (2.0-8.3); Neutrophils Percent Auto 69.3 % (45-73); Platelet Count 205 X10*3/uL (160-400); Red Blood Count 4.73 X10*6/uL (4.20-5.50); Red Cell Distribution Width 12.3 % (11.0-16.0)
[2022-09-05 10:14] LABS: Prothrombin Time 11.9 SEC (10.0-13.1)
[2022-09-05 10:17] LABS: Partial Thromboplastin Time 37.3 SEC (26.0-36.4)
[2022-09-05 10:41] LABS: Alanine Aminotransferase 23 U/L (0-31); Alkaline Phosphatase 83 U/L (39-117); Anion Gap 13 (12-20); Aspartate Amino Transferase 30 U/L (5-31); Blood Urea Nitrogen 17 mg/dL (9-16); Calcium 9.4 mg/dL (8.4-10.2); Carbon Dioxide 27 mmol/L (22-29); Chloride 106 mmol/L (96-108); Creatinine Clr Calc Pharmacy 69.6; Estimated Glomerular Filt Rate 53; Glucose Random 103 mg/dL (60-115); Lipase 49 U/L (8-78); Sodium 142 mmol/L (135-145); Total Protein 7.4 g/dL (6.5-8.0)
[2022-09-05] MEDS: fentaNYL citrate/PF 100 MCG/2 ML VIAL 25 MCG IVPUSH (10:45)
[2022-09-05 10:47] LABS: B Type Natriuretic Peptide 79 pg/mL (<100)
[2022-09-05 10:52] LABS: D Dimer High Sensitivity 191 NG/ML
[2022-09-05 10:53] LABS: Influenza A PCR NEGATIVE (Negative); Influenza B PCR NEGATIVE (Negative); Resp Syncy Virus RNA Qual PCR NEGATIVE (Negative); SARS COV2 PCR INHOUSE NEGATIVE (Negative)
[2022-09-05 11:20] LABS: Bilirubin Total 0.7 mg/dL (0.0-1.0)
[2022-09-05 11:25] LABS: Troponin-I High Sensitivity 3.1 ng/L (<3.5-17.0)
--- NOTE | 2022-09-05 11:43 | PC.NURSE ---
patient alert, oriented x4. reports CP went from 06/26 to 01/24 post two nitro tabs. pain is non radiating. able to make needs known. call martinez within reach
[2022-09-05 14:07] LABS: Troponin-I High Sensitivity < 3.5 ng/L (<3.5-17.0)
[2022-09-05 15:56] LABS: C Reactive Protein 0.29 mg/dL (< or = 0.50)
--- NOTE | 2022-09-05 16:25 | ECG_ITS ---
Test Reason : CHEST PAIN Blood Pressure : / mmHG Vent. Rate : 066 BPM Atrial Rate : 066 BPM P-R Int : 170 ms QRS Dur : 088 ms QT Int : 436 ms P-R-T Axes : 051 -03 030 degrees QTc Int : 457 ms Sinus rhythm with marked sinus arrhythmia Nonspecific T wave changes Abnormal ECG When compared with ECG of 05-SEP-2022 08:40, T wave inversion no longer evident in Anterior leads Referred By: Chriss Levy Electronically Signed By:Angel Browning
[2022-09-05 16:32] LABS: Erythrocyte Sedimentation Rate 23 MM/HR (0-20)
--- NOTE | 2022-09-05 16:53 | PM.IMHP ---
History of Present Illness Date of Service: 09/05/22 <KANA Vaughan - Last Filed: 09/05/22 18:10> Attending physician on admission: Adriel Carter <KANA Vaughan - Last Filed: 09/05/22 18:10> Chief Complaint: Chest pain <KANA Vaughan - Last Filed: 09/05/22 18:10> This is a 67 old female with a past medical history as noted below who presented to the emergency department for an evaluation of chest pain that woke her up from sleep at around 07:00 this morning. Upon further assessment, patient reports that she was woken up from her sleep due to a cramp/tightness to the midsternal/midepigastric region without radiation. She also reports that this mid-sternal chest pain was worse with inspiration. Patient reports that earlier blood pressure was taken by her son and was noted to be elevated, reports blood pressure 151/88. patient reports she attempted to take Tylenol at home but this did not relieve her pain so she seeked emergency evaluation. She does report a recent illness 2 weeks ago with a non-productive cough and associated shortness of breath. At current time and during onset of symptoms, patient denies diaphoresis, lightheadedness, dizziness, nausea, vomiting, abdominal pain, neck, jaw or back radiation. patient also denies a history of cardiac disease or episodes like this in the past. Chest x-ray: No acute pulmonary findings Initial laboratory results: CBC and BMP unremarkable. Influenza A/B, RSV and SARs-2 not detected. In the emergency department the patient received full dose aspirin, sublingual nitroglycerin x2 as well as fentanyl 25 mcg IV. Cardiology was consulted who recommended against a heparin drip however did recommend further workup The decision was made to admit Patient for medical management. <KANA Vaughan - Last Filed: 09/05/22 18:10> Review of Systems Review of Systems: A complete 12 point review of systems has been performed and is negative if not noted in HPI <KANA Vaughan - Last Filed: 09/05/22 18:10> [facility] Medical History: Medical History Anxiety Breast cancer, right Depression Graves disease History of stress incontinence Hypertension Obesity <KANA Vaughan - Last Filed: 09/05/22 18:10> Functional capacity: independent ambulation <KANA Vaughan - Last Filed: 09/05/22 18:10> Patient : No <KANA Vaughan - Last Filed: 09/05/22 18:10> Family History: Family History Father Diabetes Mother Hypertension Throat cancer Maternal Grandmother Diabetes Maternal Uncle Cancer <KANA Vaughan - Last Filed: 09/05/22 18:10> Surgical History: Surgical History History of arthroscopy of right knee History of carpal tunnel release History of cholecystectomy History of D&C History of hip replacement History of inguinal hernia repair History of lumpectomy of right breast History of surgery History of tonsillectomy History of total abdominal hysterectomy and bilateral salpingo-oophorectomy History of wisdom tooth extraction Hx of colonoscopy Hx of total mastectomy of right breast <KANA Vaughan - Last Filed: 09/05/22 18:10> Social History: Social History Housing: House Alcohol intake: never Patient Tobacco Use Status: Never used Tobacco Smoked in Last 30 Days: No e-Cigarette/Vaping Use: Never Used Second Hand Smoke Exposure: No Use of substances other than those prescribed or required for medical reasons: No Advance Directives: No Advance Directives Information Provided: Yes Patient : No service: No Current occupational status: retired Current occupational exposures/hazards: No Cognitive needs: No Hearing needs: No Vision needs: No <KANA Vaughan - Last Filed: 09/05/22 18:10> Meds Allergies/Adverse reactions: Allergies Allergy/AdvReac Type Severity Reaction Status Date / Time lactose [LACTOSE] Allergy Unknown SEVERE Verified 06/22/22 13:21 DIARRHEA- CRAMPS <KANA Vaughan - Last Filed: 09/05/22 18:10> Active Medications: Current Medications Acetaminophen (Acetaminophen Supp 650 Mg Supp.Rect) 650 mg [place] Q6H PRN PRN Reason: Pain, Mild (Pain Scale 1-3) Docusate Sodium (Docusate Sodium 100 Mg Capsule) 100 mg PO BID BEV Enoxaparin Sodium (Enoxaparin Sodium 40 Mg/0.4 Ml Syringe) 40 mg SUBCUT Q24H BEV Sodium Chloride (Ns) 1,000 mls @ 125 mls/hr IV .Q8H STA Stop: 09/05/22 17:39 Last Infusion: 09/05/22 12:06 Dose: Infused Nitroglycerin (Nitroglycerin 0.4 Mg Tab.Subl) 0.4 mg SUBLINGUAL Q5MX3 PRN PRN Reason: Chest Pain Last Admin: 09/05/22 10:03 Dose: 0.4 mg Ondansetron HCl (Ondansetron Hcl 4 Mg/2 Ml Vial) 4 mg IVPUSH Q8H PRN PRN Reason: Nausea and Vomiting Pharmacy Consult (Consult Rx Perform Med Rec) 1 each MISCELLANE ONCE PRN PRN Reason: Consult order Senna (Sennosides 8.6 Mg Tablet) 17.2 mg PO BEDTIME PRN PRN Reason: Constipation Sodium Chloride (0.9 % Sodium Chloride Flush 3 Ml Syringe) 3 ml IVFLUSH QSHIFT [facility] <KANA Vaughan - Last Filed: 09/05/22 18:10> Home medications: Home Medications Medication Instructions Recorded Confirmed Last Taken Type cholecalciferol (vitamin D3) 50 50 mcg PO DAILY 09/05/22 09/05/22 09/04/22 History mcg (2,000 unit) tablet (Vitamin D3) multivitamin 1 tab PO DAILY 09/05/22 09/05/22 09/04/22 History omeprazole 20 mg capsule,delayed 20 mg PO DAILY@0630 09/05/22 09/05/22 09/05/22 History release <KANA Vaughan - Last Filed: 09/05/22 18:10> Physical Exam Vital Signs and Narrative: Vital Signs: Last Vital Signs Temp 96.9 F 09/05/22 08:24 Pulse 63 09/05/22 14:16 Resp 21 H 09/05/22 14:16 BP 101/58 L 09/05/22 14:16 Pulse Ox 96 09/05/22 14:16 O2 Del Method 09/05/22 14:16 BMI result Body Mass Index 38.2 <KANA Vaughan - Last Filed: 09/05/22 18:10> Const: Other: General: Appears stated age, in no acute distress, answers questions accurately and appropriately. at bedside Skin: Warm and well perfused, no obvious bruises or open wounds noted Respiratory: Lungs CTAB, no rales/rhonchi, no expiratory/inspiratorywheezing, No upper airway congestion noted. Cardiac: Regular rhythm, no rubs, gallops, murmurs or clicks. No JVD/carotid bruits. No pain to cardiac region with palpation. Abdomen: Soft, non-distended, reports mild mid-epigastric tenderness with palpation, bowel sounds noted throughout Extremities: No pedal or bilateral upper extremity edema noted, no erythema tenderness with palpation. Neuro: Alert and oriented x3 Psych: Mood appropriate, no agitation /restlessness noted. <KANA Vaughan - Last Filed: 09/05/22 18:10> Results Labs CBC and Chem 7: : 09/05/22 09:47 09/05/22 09:47 <KANA Vaughan - Last Filed: 09/05/22 18:10> Labs: Laboratory Results - last 24 hr 09/05/22 09/05/22 09/05/22 09:47 09:47 09:47 MCV 93.9 MCH 31.9 MCHC 34.0 RDW 12.3 Plt Count 205 MPV 10.1 Immature Gran % (Auto) 0.3 Neut % (Auto) 69.3 Lymph % (Auto) 20.4 [place] % (Auto) 8.6 Eos % (Auto) 0.9 Baso % (Auto) 0.5 Lymph # (Auto) 2.0 [place] # (Auto) 0.9 Eos # (Auto) 0.1 Baso # (Auto) 0.1 Abs Immat Gran (auto) 0.03 Absolute Neuts (auto) 6.9 Absolute Nucleated RBC 0.000 Nucleated RBC % (auto) 0.0 ESR PT 11.9 INR 1.0 APTT 37.3 H D-Dimer High Sensitivty Anion Gap 13 Estim Creat Clear Calc 69.6 Estimated GFR 53 Random Glucose 103 Calcium 9.4 Total Bilirubin 0.7 AST 30 ALT 23 Alkaline Phosphatase 83 Troponin I High Sens C-Reactive Protein 0.29 B-Natriuretic Peptide Total Protein 7.4 Albumin 4.0 Lipase 49 Influenza Type A (PCR) Influenza Type B (PCR) RSV RNA Qual (PCR) SARS-CoV-2 RNA (RT-PCR) 09/05/22 09/05/22 09/05/22 09:47 09:47 09:47 MCV MCH MCHC RDW Plt Count MPV Immature Gran % (Auto) Neut % (Auto) Lymph % (Auto) [place] % (Auto) Eos % (Auto) Baso % (Auto) Lymph # (Auto) [place] # (Auto) Eos # (Auto) Baso # (Auto) Abs Immat Gran (auto) Absolute Neuts (auto) Absolute Nucleated RBC Nucleated RBC % (auto) ESR PT INR APTT D-Dimer High Sensitivty Anion Gap Estim Creat Clear Calc Estimated GFR Random Glucose Calcium Total Bilirubin AST ALT Alkaline Phosphatase Troponin I High Sens 3.1 C-Reactive Protein B-Natriuretic Peptide 79 Total Protein Albumin Lipase Influenza Type A (PCR) NEGATIVE Influenza Type B (PCR) NEGATIVE RSV RNA Qual (PCR) NEGATIVE SARS-CoV-2 RNA (RT-PCR) NEGATIVE 09/05/22 09/05/22 09/05/22 09:47 13:35 Unknown MCV MCH MCHC RDW Plt Count MPV Immature Gran % (Auto) Neut % (Auto) Lymph % (Auto) [place] % (Auto) Eos % (Auto) Baso % (Auto) Lymph # (Auto) [place] # (Auto) Eos # (Auto) Baso # (Auto) Abs Immat Gran (auto) Absolute Neuts (auto) Absolute Nucleated RBC Nucleated RBC % (auto) ESR 23 H PT INR APTT D-Dimer High Sensitivty 191 Anion Gap Estim Creat Clear Calc Estimated GFR Random Glucose Calcium Total Bilirubin AST ALT Alkaline Phosphatase Troponin I High Sens < 3.5 C-Reactive Protein B-Natriuretic Peptide Total Protein Albumin Lipase Influenza Type A (PCR) Influenza Type B (PCR) RSV RNA Qual (PCR) SARS-CoV-2 RNA (RT-PCR) <KANA Vaughan - Last Filed: 09/05/22 18:10> ECG Attestation: I personally reviewed and interpreted this ECG as follows: <KANA Vaughan - Last Filed: 09/05/22 18:10> Imaging Radiologist's Impressions: Impressions Chest X-Ray 09/05/22 08:55 IMPRESSION: No acute pulmonary pathology. <KANA Vaughan - Last Filed: 09/05/22 18:10> Assessment and Plan (1) Chest pain: Status: Acute <KANA Vaughan - Last Filed: 09/05/22 18:10> (2) Nonspecific abnormal electrocardiogram (ECG) (EKG): Status: Acute <KANA Vaughan - Last Filed: 09/05/22 18:10> (3) Hypertension: Status: Acute <KANA Vaughan - Last Filed: 09/05/22 18:10> 67-year-old female admitted was chest pain and nonspecific EKG changes. Chest Pain Non specific ECG changes - Patient reports midsternal/ midepigastric pain that woke up from her sleep, worse with inspiration. - Troponin high sensitivity x3 negative, ECG nonischemic -however did show nonspecific changes - Patient received sublingual nitroglycerin x2 however reports this did NOT help, she received Fentanyl afterwards with improvement in her sympotms. - CRP in range, echocardiogram ordered and pending at time of dictation. - Cardiology consulted, continued recommendations appreciated. - Patient to be monitored on telemetry. Observe for further chest pain/arrhythmia -EKG to be obtained if so. - ESR noted to be 23. Patient also reports recent viral illness 2 weeks ago with a nonproductive cough, shortness of breath, and cold-like symptoms. - Repeat labs in a.m. Hypertension - Continue antihypertensive holding parameters. Current blood pressure on the lower side as patient just received fentanyl. - Monitor blood pressure. Anxiety and depression - Denies SI/HI. - Maintained on bupropion and lorazepam daily. Continue with holding parameters. Gastroesophageal reflux disease - Patient does carry history of gastroesophageal reflux disease, maintained on oral PPI which has been continued. - Possibility that patients mid epigastric/ midsternal pain is GI in nature. OTHER: DVT prophylaxis - Lovenox. Patient is a FULL CODE HCP/person to notify is Kayode Whalen, . Case and plan discussed with Dr Adriel Carter <Erin Guzman, [employer]STRUCTION PROJECT ASSISTANT - Last Filed: 09/05/22 18:10> 67-year-old female admitted was chest pain and nonspecific EKG changes. Chest Pain Non specific ECG changes - Patient reports midsternal/ midepigastric pain that woke up from her sleep, worse with inspiration. - Troponin high sensitivity x3 negative, ECG nonischemic -however did show nonspecific changes - Patient received sublingual nitroglycerin x2 however reports this did NOT help, she received Fentanyl afterwards with improvement in her sympotms. - CRP in range, echocardiogram ordered and pending at time of dictation. - Cardiology consulted, continued recommendations appreciated. - Patient to be monitored on telemetry. Observe for further chest pain/arrhythmia -EKG to be obtained if so. - ESR noted to be 23. Patient also reports recent viral illness 2 weeks ago with a nonproductive cough, shortness of breath, and cold-like symptoms. - Repeat labs in a.m. Hypertension - Continue antihypertensive holding parameters. Current blood pressure on the lower side as patient just received fentanyl. - Monitor blood pressure. Anxiety and depression - Denies SI/HI. - Maintained on bupropion and lorazepam daily. Continue with holding parameters. Gastroesophageal reflux disease - Patient does carry history of gastroesophageal reflux disease, maintained on oral PPI which has been continued. - Possibility that patients mid epigastric/ midsternal pain is GI in nature. OTHER: DVT prophylaxis - Lovenox. Patient is a FULL CODE HCP/person to notify is Kayode Whalen, . Case and plan discussed with Dr Adriel Carter Addendum to history and physical by mid-level provider, ESMER Guzman I interviewed and examined the patient. I discussed their presentation and management with the mid-level provider. I reviewed the history and physical and agree with the documentation, with the following additions and corrections: 67yo F with HTN + obesity who awoke from sleep with SSCP at 7:00 today. Subsequently resolved after NTG + fentanyl in ED. Had URI approx 2 wk ago. Anterior TWIs, negative troponins x3. ESR 23, CRP 0.29. Cardiology was consulted from the ED and plan is for inpt stress and TTE. <Adriel Carter MD - Last Filed: 09/05/22 19:41> Quality Stroke Does the patient have a stroke diagnosis?: No <KANA Vaughan - Last Filed: 09/05/22 18:10> VTE Prior VTE?: No <KANA Vaughan - Last Filed: 09/05/22 18:10> VTE Risk Level:: Medical - moderate - high <KANA Vaughan - Last Filed: 09/05/22 18:10> VTE Device Contraindication: N/A - Device Ordered <KANA Vaughan - Last Filed: 09/05/22 18:10> VTE Drug Contraindication: N/A - Med Ordered <KANA Vaughan - Last Filed: 09/05/22 18:10>
--- NOTE | 2022-09-05 17:13 | P.CONCA_ITS ---
History of Present Illness History of Present Illness Date of Service: 09/05/22 Requesting physician: Chriss Levy Chief complaint: Chest pain Narrative: 67-year-old female who is presenting with chest pain. She woke up 07:00 with central chest discomfort. This the 1st time she had chest pain. She said it would hurt somewhat when she would take a deep breath but otherwise it was not clearly a pleuritic pain. She she said laying down helped more than sitting up. These symptoms persisted for some time when she when she came to the emergency department. She was given nitroglycerin and fentanyl which improved the discomfort and at this point she is pain-free. Her ECG showed nonspecific T- wave changes. Her biomarkers are negative. She is pain-free currently. Not physically active due to hamstring injury in the past. Saying she will not be able to exercise on the treadmill. [facility] Past Medical History Medical History Anxiety Breast cancer, right Depression Graves disease History of stress incontinence Hypertension Obesity Functional capacity: independent ambulation Family History Family History Father Diabetes Mother Hypertension Throat cancer Maternal Grandmother Diabetes Maternal Uncle Cancer Surgical History Surgical History History of arthroscopy of right knee History of carpal tunnel release History of cholecystectomy History of D&C History of hip replacement History of inguinal hernia repair History of lumpectomy of right breast History of surgery History of tonsillectomy History of total abdominal hysterectomy and bilateral salpingo-oophorectomy History of wisdom tooth extraction Hx of colonoscopy Hx of total mastectomy of right breast Social History Social History Housing: House Alcohol intake: never Patient Tobacco Use Status: Never used Tobacco Smoked in Last 30 Days: No e-Cigarette/Vaping Use: Never Used Second Hand Smoke Exposure: No Use of substances other than those prescribed or required for medical reasons: No Advance Directives: No Advance Directives Information Provided: Yes Patient : No service: No Current occupational status: retired Current occupational exposures/hazards: No Cognitive needs: No Hearing needs: No Vision needs: No Meds Allergies Allergy/AdvReac Type Severity Reaction Status Date / Time lactose [LACTOSE] Allergy Unknown SEVERE Verified 06/22/22 13:21 DIARRHEA- CRAMPS Active Medications: Current Medications Acetaminophen (Acetaminophen Supp 650 Mg Supp.Rect) 650 mg MA Q6H PRN PRN Reason: Pain, Mild (Pain Scale 1-3) Docusate Sodium (Docusate Sodium 100 Mg Capsule) 100 mg PO BID BEV Enoxaparin Sodium (Enoxaparin Sodium 40 Mg/0.4 Ml Syringe) 40 mg SUBCUT Q24H BEV Sodium Chloride (Ns) 1,000 mls @ 125 mls/hr IV .Q8H STA Stop: 09/05/22 17:39 Last Infusion: 09/05/22 12:06 Dose: Infused Nitroglycerin (Nitroglycerin 0.4 Mg Tab.Subl) 0.4 mg SUBLINGUAL Q5MX3 PRN PRN Reason: Chest Pain Last Admin: 09/05/22 10:03 Dose: 0.4 mg Ondansetron HCl (Ondansetron Hcl 4 Mg/2 Ml Vial) 4 mg IVPUSH Q8H PRN PRN Reason: Nausea and Vomiting Pharmacy Consult (Consult Rx Perform Med Rec) 1 each MISCELLANE ONCE PRN PRN Reason: Consult order Senna (Sennosides 8.6 Mg Tablet) 17.2 mg PO BEDTIME PRN PRN Reason: Constipation Sodium Chloride (0.9 % Sodium Chloride Flush 3 Ml Syringe) 3 ml IVFLUSH QSHIFT BEV Physical Exam Vital Signs: Vital Signs: Last Vital Signs Temp 96.9 F 09/05/22 08:24 Pulse 63 09/05/22 14:16 Resp 21 H 09/05/22 14:16 BP 101/58 L 09/05/22 14:16 Pulse Ox 96 09/05/22 14:16 O2 Del Method 09/05/22 14:16 BMI result Body Mass Index 38.2 GENERAL APPEARANCE: in no acute distress, pleasant. NECK: no carotid bruit, no jugular venous distention. SKIN: no suspicious lesions, warm and dry. HEART: no murmurs, regular rate and rhythm. LUNGS: clear to auscultation bilaterally. ABDOMEN: soft, nontender. EXTREMITIES: no edema. PERIPHERAL PULSES: equal. NEUROLOGIC: No gross deficits, AAO X 3 Objective Labs and Meds Result diagrams: 09/05/22 09:47 09/05/22 09:47 Lab results: Laboratory Results - last 24 hr 09/05/22 09/05/22 09/05/22 09:47 09:47 09:47 WBC 10.0 RBC 4.73 Hgb 15.1 Hct 44.4 MCV 93.9 MCH 31.9 MCHC 34.0 RDW 12.3 Plt Count 205 MPV 10.1 Immature Gran % (Auto) 0.3 Neut % (Auto) 69.3 Lymph % (Auto) 20.4 [place] % (Auto) 8.6 Eos % (Auto) 0.9 Baso % (Auto) 0.5 Lymph # (Auto) 2.0 [place] # (Auto) 0.9 Eos # (Auto) 0.1 Baso # (Auto) 0.1 Abs Immat Gran (auto) 0.03 Absolute Neuts (auto) 6.9 Absolute Nucleated RBC 0.000 Nucleated RBC % (auto) 0.0 ESR PT 11.9 INR 1.0 APTT 37.3 H D-Dimer High Sensitivty Sodium 142 Potassium 4.0 Chloride 106 Carbon Dioxide 27 Anion Gap 13 BUN 17 H Creatinine 1.04 Estim Creat Clear Calc 69.6 Estimated GFR 53 Random Glucose 103 Calcium 9.4 Total Bilirubin 0.7 AST 30 ALT 23 Alkaline Phosphatase 83 Troponin I High Sens C-Reactive Protein 0.29 B-Natriuretic Peptide Total Protein 7.4 Albumin 4.0 Lipase 49 Influenza Type A (PCR) Influenza Type B (PCR) RSV RNA Qual (PCR) SARS-CoV-2 RNA (RT-PCR) 09/05/22 09/05/22 09/05/22 09:47 09:47 09:47 WBC RBC Hgb Hct MCV MCH MCHC RDW Plt Count MPV Immature Gran % (Auto) Neut % (Auto) Lymph % (Auto) [place] % (Auto) Eos % (Auto) Baso % (Auto) Lymph # (Auto) [place] # (Auto) Eos # (Auto) Baso # (Auto) Abs Immat Gran (auto) Absolute Neuts (auto) Absolute Nucleated RBC Nucleated RBC % (auto) ESR PT INR APTT D-Dimer High Sensitivty Sodium Potassium Chloride Carbon Dioxide Anion Gap BUN Creatinine Estim Creat Clear Calc Estimated GFR Random Glucose Calcium Total Bilirubin AST ALT Alkaline Phosphatase Troponin I High Sens 3.1 C-Reactive Protein B-Natriuretic Peptide 79 Total Protein Albumin Lipase Influenza Type A (PCR) NEGATIVE Influenza Type B (PCR) NEGATIVE RSV RNA Qual (PCR) NEGATIVE SARS-CoV-2 RNA (RT-PCR) NEGATIVE 09/05/22 09/05/22 09/05/22 09:47 13:35 Unknown WBC RBC Hgb Hct MCV MCH MCHC RDW Plt Count MPV Immature Gran % (Auto) Neut % (Auto) Lymph % (Auto) [place] % (Auto) Eos % (Auto) Baso % (Auto) Lymph # (Auto) [place] # (Auto) Eos # (Auto) Baso # (Auto) Abs Immat Gran (auto) Absolute Neuts (auto) Absolute Nucleated RBC Nucleated RBC % (auto) ESR 23 H PT INR APTT D-Dimer High Sensitivty 191 Sodium Potassium Chloride Carbon Dioxide Anion Gap BUN Creatinine Estim Creat Clear Calc Estimated GFR Random Glucose Calcium Total Bilirubin AST ALT Alkaline Phosphatase Troponin I High Sens < 3.5 C-Reactive Protein B-Natriuretic Peptide Total Protein Albumin Lipase Influenza Type A (PCR) Influenza Type B (PCR) RSV RNA Qual (PCR) SARS-CoV-2 RNA (RT-PCR) Imaging Radiologist's impression: Impressions Chest X-Ray 09/05/22 08:55 IMPRESSION: No acute pulmonary pathology. Assessment and Plan (1) Nonspecific abnormal electrocardiogram (ECG) (EKG): Status: Acute (2) Hypertension: Status: Acute (3) Chest pain: Status: Acute Plan Pleasant 67 year female background history of hypertension presenting for chest discomfort. She has nonspecific T-wave changes on the EKG. Biomarkers are negative. She is pain-free currently. Repeat EKG to see these changes are persistent or evolving. If the changes are worse over ECG completely normalizes then I would recommend heparin drip. If EKG changes do not evolve and look the same then I think we should pursue stress testing on her tomorrow. Blood pressure control is okay. She should be on baby aspirin. Keep NPO after midnight and depending on further workup we will decide about stress testing versus cardiac catheterization. Thank you for allowing me to participate in the care of your patient. Please feel free to contact me if you have any questions. Time Spent With Patient Time: Total time managing care of this patient today ____ minutes. Procedures Date of Service Date of Service: 09/05/22
[2022-09-05 17:20] LABS: Troponin-I High Sensitivity < 3.5 ng/L (<3.5-17.0)
--- NOTE | 2022-09-05 17:28 | PHA.MEDREC ---
Pharmacy Consult ? Medication Reconciliation Pharmacy has completed the medication reconciliation.
[2022-09-05 19:15] LABS: Magnesium 1.9 mg/dL (1.6-2.6)
[2022-09-05] MEDS: Docusate Sodium 100 MG CAPSULE PO (20:59)
[2022-09-06] MEDS: 0.9 % Sodium Chloride Flush 3 ML SYRINGE IVFLUSH ×2 (00:23→12:26)
[2022-09-06 01:49] VITALS: BP 128/64; PULSE 73; RESP 16; TEMP 36.7; O2SAT 95
[2022-09-06 01:50] VITALS: BMI 35.9
--- NOTE | 2022-09-06 05:00 | ECG_ITS ---
Test Reason : CHEST PAIN Blood Pressure : / mmHG Vent. Rate : 069 BPM Atrial Rate : 069 BPM P-R Int : 172 ms QRS Dur : 088 ms QT Int : 418 ms P-R-T Axes : 043 -11 031 degrees QTc Int : 447 ms Normal sinus rhythm with sinus arrhythmia Nonspecific T wave abnormality Abnormal ECG When compared with ECG of 05-SEP-2022 17:31, Nonspecific T wave abnormality now evident in Lateral leads Referred By: Erin Guzman Electronically Signed By:Angel Browning
[2022-09-06] MEDS: Omeprazole 20 MG CAPSULE.DR PO (05:44)
[2022-09-06 06:46] LABS: Hematocrit 42.5 % (37.0-47.0); Hemoglobin 14.4 g/dl (12.0-16.0); Mean Corpuscular HGB Conc 33.9 g/dl (31.0-35.0); Mean Corpuscular Hemoglobin 31.8 pg (27.0-33.0); Mean Corpuscular Volume 93.8 fL (80.0-98.0); Mean Platelet Volume 9.9 fL (9.4-12.3); Platelet Count 206 X10*3/uL (160-400); Red Blood Count 4.53 X10*6/uL (4.20-5.50); Red Cell Distribution Width 12.2 % (11.0-16.0); White Blood Count 8.4 X10*3/uL (4.8-10.8)
[2022-09-06 06:53] LABS: Anion Gap 12 (12-20); Blood Urea Nitrogen 11 mg/dL (9-16); Calcium 8.8 mg/dL (8.4-10.2); Carbon Dioxide 26 mmol/L (22-29); Chloride 107 mmol/L (96-108); Creatinine Clr Calc Pharmacy 76.8; Estimated Glomerular Filt Rate > 60; Glucose Random 95 mg/dL (60-115); Potassium 3.7 mmol/L (3.3-5.1); Sodium 141 mmol/L (135-145)
--- NOTE | 2022-09-06 07:00 | CA_ITS ---
Transthoracic Echocardiogram Patient (Last, First, Middle): Vangie Whalen A Gender: Female Date of : 1955 Age: 67 Procedure Date: 09/06/2022 Procedure Type: Transthoracic Echocardiogram Location: S3E Height: 172.72 cm Weight: 107.05 kg BSA: 2.19 m2 Heart Rate: 60 bpm BP: 128 / 64 mmHg Inspector Golf Ball: TAPAN Referring MD: Erin ROGER Wet Pour Mixer: Peter Viera MD Symptoms: Chest pain Study Quality: Adequate w contrast ECG Rhythm: Sinus Conclusions: - 1. Normal LV systolic function with grade 1 diastolic dysfunction 2. Moderate aortic regurgitation 3. Mildly dilated right ventricle and right atrium with reduced RV systolic function 4. Mildly dilated ascending aorta 5. Normal RV systolic pressure 6. No pericardial effusion Findings Procedure Information Contrast agent, definity, is being given per protocol without apparent complications. Left Ventricle Normal left ventricular size, thickness, and systolic function. The visually estimated ejection fraction is between 65-70%. Spectral Doppler is indicative of an impaired relaxation filling pattern. E/E prime ratio is <8, consistent with normal filling pressures. Evidence suggests grade I (mild) diastolic dysfunction. Wall Motion Rest Echo Findings The basal inferior segment is hypokinetic. All other scored wall segments showed normal motion. Right Ventricle Mildly increased right ventricular cavity size. There is mildly decreased right ventricular systolic function. Atria The left atrium is normal in size. Interatrial shunt cannot be excluded. The right atrium is mildly dilated. Aortic Valve The aortic valve structure and function is likely normal. There is no aortic valve stenosis. There is moderate aortic valve regurgitation. Mitral Valve Normal mitral valve structure and function. There is trace mitral valve regurgitation. There is no mitral valve stenosis. Pulmonic Valve The pulmonic valve is likely normal. There is mild pulmonic valve regurgitation. Tricuspid Valve Normal tricuspid valve structure. There is mild tricuspid valve regurgitation. The right ventricular systolic pressure is normal. The right ventricular systolic pressure is 25 mmHg. Normal right atrial pressure. There is no evidence of pulmonary hypertension. Great Vessels The pulmonary artery was not well visualized. There is mild dilatation of the ascending aorta measuring 3.80 cm. Venous The inferior vena cava is normal in size and collapses greater than 50% with inspiration. Pericardium/Pleural There is no evidence of pericardial effusion. Prior Study Comparison No prior study available for comparison. Measurements 2D Linear Measurements IVSd: 0.73 0.6-0.9/0.6-1.0 cm LVIDd: 5.50 3.9-5.3/4.2-5.9 cm LVIDd Index: 2.51 2.4-3.2/2.2-3.1 cm/m2 LVIDs: 3.78 2.0-3.6 cm LVPWd: 0.69 0.7-1.1 cm LA Diam: 4.10 2.7-3.8/3.0-4.0 cm LAIDs Index: 1.87 1.5-2.3 cm/m2 LV Mass: 171.30 67-162/88-224 g LV Mass Index: 78.22 43-95/49-115 g/m2 LVOT Diam: 2.10 3.0+(-)1.3 cm 2D Systolic Function EF 4C: 73.00 >55% EF 2C: 65.60 >55% Mitral Valve MV Pk E: 0.71 MV PK A: 0.69 MV Decel Time: 209.00 E/A: 1.00 E'Lateral: 9.36 E'Medial: 9.25 E/E' Med: 7.60 E/E' Lat: 7.60 PHT: 61.00 MVA PHT: 3.61 Decel Hancock: 3.38 Aortic Valve AoV Pk Franco: 1.69 AoV Pk Grad: 11.00 ESTEPHANIA: 2.58 AI Pk Franco: 4.14 AI Hancock: 1.40 LVOT LVOT Pk Franco: 1.32 LVOT Mn Franco: 0.84 LVOT VTI: 0.27 LVOT Pk Grad: 7.00 LVOT Mn Grad: 4.00 LVOT Diam: 2.10 LVOT Area: 3.46 Diastolic Function MV Pk E: 0.71 MV Pk A: 0.69 E/A: 1.00 E'Medial: 9.25 E/E' Med: 7.60 E' Laterial: 9.36 E/E' Lat: 7.60 Right Ventricle TAPSE (mm): 15.20 TVS' Franco: 12.30 Tricuspid Valve TR Pk Franco: 2.34 TR Pk Grad: 22.00 RA Press: 3.00 RVSP: 25.00 Great Vessels Aorta Sinus of Valsalva: 3.10 2.0-3.5 cm Ao Asc: 3.80 2.1-3.4 cm Pulmonary Valve PV Pk Franco: 0.91 Peak PV Grad: 3.00 Updated in Other Vendor System with Status of Final Peter Viera MD electronically signed on 09/06/2022 3:39:33 PM with status of Final
[2022-09-06 08:00] VITALS: BP 109/58; PULSE 65; RESP 18; TEMP 36.8; O2SAT 94
[2022-09-06 11:22] LABS: Hematocrit 42.6 % (37.0-47.0); Hemoglobin 14.3 g/dl (12.0-16.0); Mean Corpuscular HGB Conc 33.6 g/dl (31.0-35.0); Mean Corpuscular Hemoglobin 32.1 pg (27.0-33.0); Mean Corpuscular Volume 95.7 fL (80.0-98.0); Mean Platelet Volume 10.2 fL (9.4-12.3); Platelet Count 180 X10*3/uL (160-400); Red Blood Count 4.45 X10*6/uL (4.20-5.50); Red Cell Distribution Width 12.3 % (11.0-16.0); White Blood Count 6.9 X10*3/uL (4.8-10.8)
[2022-09-06 11:28] LABS: INTERNATIONAL NORM RATIO 1.2 (0.9-1.1); Prothrombin Time 13.3 SEC (10.0-13.1)
[2022-09-06 12:00] VITALS: BP 129/72; PULSE 69; RESP 18; TEMP 36.2; O2SAT 95
[2022-09-06] MEDS: buPROPion HCl XL 150 MG TAB.ER.24H PO (12:25)
[2022-09-06] MEDS: Aspirin 81 MG TAB.CHEW PO (12:25)
[2022-09-06] MEDS: atenoloL 100 MG TABLET PO (12:26)
[2022-09-06] MEDS: Cholecalciferol (Vitamin D3) 25 MCG TABLET 50 MCG PO (12:26)
[2022-09-06] MEDS: Multivitamin TABLET 1 TAB PO (12:26)
[2022-09-06] MEDS: Heparin Sodium,Porcine/1/2NS 25,000 UNIT/250 ML IV.SOLN 12.86 UNIT IVCONT (12:38)
--- NOTE | 2022-09-06 13:27 | P.PNCA_ITS ---
Subjective Subjective Date of Service: 09/06/22 <KELLY Davila - Last Filed: 09/06/22 13:40> 09/06/22 <Angel Browning MD - Last Filed: 09/06/22 20:02> Principal diagnosis: chest pains, abnormal EKG <KELLY Davila - Last Filed: 09/06/22 13:40> Interval history: Seen at 1130. Today she reports no recurrent chest discomfort. Feels well with no concerning symptoms. Denies sob, palpitation, dizziness. Tele showing SR,60-70s. Was not able to do stress test this am due to claustrophobia. States even with antianxiety agent would not be able to tolerate. Echo and EKG done this am. <KELLY Davila - Last Filed: 09/06/22 13:40> Review of Systems Review of Systems as above <KELLY Davila - Last Filed: 09/06/22 13:40> Yes all other systems are reviewed and are negative <KELLY Davila - Last Filed: 09/06/22 13:40> Physical Exam Vital Signs: Last Vital Signs Temp 97.1 F 09/06/22 12:00 Pulse 69 09/06/22 12:00 Resp 18 09/06/22 12:00 BP 129/72 09/06/22 12:00 Pulse Ox 95 09/06/22 12:00 O2 Del Method 09/06/22 12:00 BMI result Body Mass Index 35.9 <KELLY Davila - Last Filed: 09/06/22 13:40> Const General: cooperative, healthy appearing, comfortable and no acute distress <KELLY Davila - Last Filed: 09/06/22 13:40> Orientation/consciousness: patient oriented x3 <KELLY Daivla - Last Filed: 09/06/22 13:40> Neck Neck: Yes normal visual inspection and Yes no JVD <KELLY Davila - Last Filed: 09/06/22 13:40> Resp Effort & Inspection: normal respiratory effort <KELLY Davila - Last Filed: 09/06/22 13:40> Auscultation: clear to auscultation bilaterally, no crackles, no rales, no rhonchi and no wheezes <[facility] Manish [facility] - Last Filed: 09/06/22 13:40> Cardio Jugular venous distension: no JVD <[facility] - Last Filed: 09/06/22 13:40> Rate: regular rate <[facility] Manish [facility] - Last Filed: 09/06/22 13:40> Rhythm: regular rhythm <[facility] - Last Filed: 09/06/22 13:40> Heart sounds: S1 normal heart sound present, S2 normal heart sound present, no gallops, no murmurs and no rubs <[facility] Manish [facility] - Last Filed: 09/06/22 13:40> Peripheral pulses: Peripheral pulses 2+ throughout <[facility] Manish [facility] - Last Filed: 09/06/22 13:40> GI Inspection: Yes normal to inspection <[facility] Manish [facility] - Last Filed: 09/06/22 13:40> Neuro General: patient oriented x3 <[facility] Manish [facility] - Last Filed: 09/06/22 13:40> Extrem General: Yes normal to inspection, No no pedal edema and No calf tenderness <[facility] Manish -C - Last Filed: 09/06/22 13:40> Psych Appearance: grossly normal <[facility] Manish [facility] - Last Filed: 09/06/22 13:40> Mental Status: mental status grossly normal <[facility] Manish [facility] - Last Filed: 09/06/22 13:40> Speech and movement: Normal speech and movement present <[facility] Manish [facility] - Last Filed: 09/06/22 13:40> Objective Labs and Meds Result diagrams: : 09/06/22 11:15 09/06/22 06:24 <Sailaja Manish [facility] - Last Filed: 09/06/22 13:40> Lab results: Laboratory Results - last 24 hr 09/05/22 09/05/22 09/05/22 09:47 09:47 13:35 WBC RBC Hgb Hct MCV MCH MCHC RDW Plt Count MPV Absolute Nucleated RBC Nucleated RBC % (auto) ESR 23 H PT INR aPTT Heparin Protocol Sodium Potassium Chloride Carbon Dioxide Anion Gap BUN Creatinine Estim Creat Clear Calc Estimated GFR Random Glucose Calcium Magnesium Troponin I High Sens < 3.5 C-Reactive Protein 0.29 09/05/22 09/05/22 09/06/22 16:41 18:33 06:24 WBC 8.4 RBC 4.53 Hgb 14.4 Hct 42.5 MCV 93.8 MCH 31.8 MCHC 33.9 RDW 12.2 Plt Count 206 MPV 9.9 Absolute Nucleated RBC 0.000 Nucleated RBC % (auto) 0.0 ESR PT INR aPTT Heparin Protocol Sodium Potassium Chloride Carbon Dioxide Anion Gap BUN Creatinine Estim Creat Clear Calc Estimated GFR Random Glucose Calcium Magnesium 1.9 Troponin I High Sens < 3.5 C-Reactive Protein 09/06/22 09/06/22 09/06/22 06:24 11:15 11:15 WBC 6.9 RBC 4.45 Hgb 14.3 Hct 42.6 MCV 95.7 MCH 32.1 MCHC 33.6 RDW 12.3 Plt Count 180 MPV 10.2 Absolute Nucleated RBC 0.000 Nucleated RBC % (auto) 0.0 ESR PT 13.3 H INR 1.2 H aPTT Heparin Protocol 35.0 L Sodium 141 Potassium 3.7 Chloride 107 Carbon Dioxide 26 Anion Gap 12 BUN 11 Creatinine 0.91 Estim Creat Clear Calc 76.8 Estimated GFR > 60 Random Glucose 95 Calcium 8.8 D Magnesium Troponin I High Sens C-Reactive Protein <KELLY Davila - Last Filed: 09/06/22 13:40> Progress Note: A&P Assessment and plan (1) Chest pain: Status: Acute <KELLY Davila - Last Filed: 09/06/22 13:40> Assessment and Plan: Woke with left CP yesterday Relieved in ED with NTG and fentanyl. No recurrent CP since then. No cardiac hx. Risk factors of HTN, obesity, age. EKG initially shows SR, T wave inversions V2-V4 - Less prominant on EKG hours later. Troponins normal. CXR normal. Has been on aspirin and atenolol. Will start on Heparin drip for anticoagulation, per protocol, until plan determined. We ordered pharm nuclear stress test for today and she was unable to complete due to claustrophobia. Unable to exercise on treadmill. Echo completed - report is pending. EKG this am with mild T wave inversions V2-V4. Discussed case with Dr Browning. He will review echo and determine plan of care. Pt informed. <Sailaja Hammond, DENTAL CHAIR ASSEMBLER-C - Last Filed: 09/06/22 13:40> (2) Electrocardiogram showing T wave abnormalities: Status: Acute <Sailaja Hammond, DENTAL CHAIR ASSEMBLER-C - Last Filed: 09/06/22 13:40> (3) Hypertension: Status: Acute <Sailaja Manish, DENTAL CHAIR ASSEMBLER-C - Last Filed: 09/06/22 13:40> Assessment and Plan: Well controlled. Continue atenolol <Sailaja Hammond, DENTAL CHAIR ASSEMBLER-C - Last Filed: 09/06/22 13:40> (4) Obesity: Status: Acute <Sailaja Hammond, DENTAL CHAIR ASSEMBLER-C - Last Filed: 09/06/22 13:40> Assessment and Plan: Cardiac risk factor <Sailaja Manish, DENTAL CHAIR ASSEMBLER-C - Last Filed: 09/06/22 13:40> Assessment and Plan: Patient seen examined at bedside. She has not had any further chest discomfort. The EKG has significantly improved. Our plan was to do of Lexiscan on her but she has significant claustrophobia and could not tolerate the test. She is unable to exercise due to hamstring injury. I have advised her that we transfer to [facility] and do a diagnostic angiogram. I have reviewed her echocardiogram and there is basal inferior wall motion abnormality as well as moderate aortic valve insufficiency. My initial plan was to probably consider a dobutamine stress echo on but am not sure with the present aortic insufficiency and wall motion abnormality (with no previous recent comparison) dobutamine stress echo is a good option. I think the options are cardiac catheterization versus putting her on Plavix and treating her medically. I disc ussed with the patient about cardiac catheterization but she wished to talk to her . Will see what she decides. Thank you for allowing me to participate in the care of your patient. Please fe el free to contact me if you have any questions. <Angel Browning MD - Last Filed: 09/06/22 20:02> Time Spent With Patient Time: Total time managing care of this patient today ___20_ minutes. <KELLY Davila - Last Filed: 09/06/22 13:40> Progress Note: Quality Stroke Does the patient have a stroke diagnosis?: No <KELLY Davila - Last Filed: 09/06/22 13:40> Procedures Date of Service Date of Service: 09/06/22 <KELLY Davila - Last Filed: 09/06/22 13:40>
--- NOTE | 2022-09-06 14:30 | HO.PM.IMPN ---
Subjective Subjective Date of Service: 09/06/22 Interval History: no further chest pain did not tolerate nuclear stress test Review of Systems Review of Systems: Yes all other systems are reviewed and are negative Physical Exam Vital Signs: Vital Signs: Last Vital Signs Temp 97.1 F 09/06/22 12:00 Pulse 69 09/06/22 12:00 Resp 18 09/06/22 12:00 BP 129/72 09/06/22 12:00 Pulse Ox 95 09/06/22 12:00 O2 Del Method 09/06/22 12:00 BMI result Body Mass Index 35.9 Gen: in no acute distress HEENT: sclera anicteric, moist mucus membranes Neck: supple Lungs: clear to auscultation bilaterally Heart: regular rate and rhythm, no murmurs Abd: soft, non-tender, non-distended Ext: no edema Skin: warm/well-perfused Neuro: alert and oriented x3, no focal findings Psych: appropriate affect Objective Data Active Medications Acetaminophen (Acetaminophen Supp 650 Mg Supp.Rect) 650 mg HI Q6H PRN PRN Reason: Pain, Mild (Pain Scale 1-3) Aspirin (Aspirin 81 Mg Tab.Chew) 81 mg PO DAILY [facility] Last Admin: 09/06/22 12:25 Dose: 81 mg Documented By: ASHUTOSH Atenolol (Atenolol 100 Mg Tablet) 100 mg PO DAILY [facility]; Protocol Last Admin: 09/06/22 12:26 Dose: 100 mg Documented By: ASHUTOSH Bupropion HCl (Bupropion Hcl Xl 300 Mg Tab.Er.24h) 300 mg PO DAILY [facility] Last Admin: 09/06/22 12:37 Dose: Not Given Documented By: ASHUTOSH Non-Admin Reason: Patient Refused Bupropion HCl (Bupropion Hcl Xl 150 Mg Tab.Er.24h) 150 mg PO DAILY [facility] Last Admin: 09/06/22 12:25 Dose: 150 mg Documented By: ASHUTOSH Docusate Sodium (Docusate Sodium 100 Mg Capsule) 100 mg PO BID [facility] Last Admin: 09/06/22 12:26 Dose: Not Given Documented By: ASHUTOSH Non-Admin Reason: Patient Refused Heparin Sodium (Porcine) (Heparin Sodium,Porcine 5,000 Unit/Ml Vial) 4,300 unit 40 unit/kg (4300 unit) IVPUSH PROTOCOL BOLUS PRN; Protocol PRN Reason: 40 unit/kg - Heparin Protocol Heparin Sodium (Porcine) (Heparin Sodium,Porcine 5,000 Unit/Ml Vial) 8,600 unit 80 unit/kg (8600 unit) IVPUSH PROTOCOL BOLUS PRN; Protocol PRN Reason: 80 unit/kg - Heparin Protocol Heparin Sodium/Sodium Chloride (Heparin Sodium,Porcine/1/2ns) 25,000 unit in 250 mls @ 0 mls/hr IVCONT .Q0M BEV; Protocol Last Admin: 09/06/22 12:38 Dose: 12 units/kg/hr, 12.86 mls/hr Documented By: ASHUTOSH Co-signed By: ELIANA Lorazepam (Lorazepam 0.5 Mg Tablet) 0.5 mg PO DAILY PRN PRN Reason: Anxiety Multivitamins/Vitamin C (Multivitamin Tablet) 1 tab PO DAILY [facility] Last Admin: 09/06/22 12:26 Dose: 1 tab Documented By: ASHUTOSH Nitroglycerin (Nitroglycerin 0.4 Mg Tab.Subl) 0.4 mg SUBLINGUAL Q5MX3 PRN PRN Reason: Chest Pain Last Admin: 09/05/22 10:03 Dose: 0.4 mg Documented By: ANISH Omeprazole (Omeprazole 20 Mg Capsule.Dr) 20 mg PO DAILY@0630 [facility] Last Admin: 09/06/22 05:44 Dose: 20 mg Documented By: CRUZ Ondansetron HCl (Ondansetron Hcl 4 Mg/2 Ml Vial) 4 mg IVPUSH Q8H PRN PRN Reason: Nausea and Vomiting Pharmacy Consult (Consult Rx Perform Med Rec) 1 each MISCELLANE ONCE PRN PRN Reason: Consult order Senna (Sennosides 8.6 Mg Tablet) 17.2 mg PO BEDTIME PRN PRN Reason: Constipation Sodium Chloride (0.9 % Sodium Chloride Flush 3 Ml Syringe) 3 ml IVFLUSH QSHIFT [facility] Last Admin: 09/06/22 12:26 Dose: 3 ml Documented By: ASHUTOSH Vitamin D (Cholecalciferol (Vitamin D3) 25 Mcg Tablet) 50 mcg PO DAILY [facility] Last Admin: 09/06/22 12:26 Dose: 50 mcg Documented By: ASHUTOSH Labs CBC & Chem 7: 09/06/22 11:15 09/06/22 06:24 Labs: Laboratory Results - last 24 hr 09/05/22 09/05/22 09/05/22 09:47 09:47 16:41 MCV MCH MCHC RDW Plt Count MPV Absolute Nucleated RBC Nucleated RBC % (auto) ESR 23 H PT INR aPTT Heparin Protocol Anion Gap Estim Creat Clear Calc Estimated GFR Random Glucose Calcium Magnesium Troponin I High Sens < 3.5 C-Reactive Protein 0.29 09/05/22 09/06/22 09/06/22 18:33 06:24 06:24 MCV 93.8 MCH 31.8 MCHC 33.9 RDW 12.2 Plt Count 206 MPV 9.9 Absolute Nucleated RBC 0.000 Nucleated RBC % (auto) 0.0 ESR PT INR aPTT Heparin Protocol Anion Gap 12 Estim Creat Clear Calc 76.8 Estimated GFR > 60 Random Glucose 95 Calcium 8.8 D Magnesium 1.9 Troponin I High Sens C-Reactive Protein 09/06/22 09/06/22 11:15 11:15 MCV 95.7 MCH 32.1 MCHC 33.6 RDW 12.3 Plt Count 180 MPV 10.2 Absolute Nucleated RBC 0.000 Nucleated RBC % (auto) 0.0 ESR PT 13.3 H INR 1.2 H aPTT Heparin Protocol 35.0 L Anion Gap Estim Creat Clear Calc Estimated GFR Random Glucose Calcium Magnesium Troponin I High Sens C-Reactive Protein Assessment and Plan (1) Chest pain: Status: Acute (2) Electrocardiogram showing T wave abnormalities: Status: Acute Plan d#2 67yo F with HTN, anxiety, obesity who woke up with substernal chest pain. Three negative hs-Tn-Is, but some anterior T-wave inversions on EKG # chest pain - unable to tolerate nuclear stress test. TTE pending. to consider dobutamine stress echo in AM and if positive would need cardiac cath. continue heparin for now per Cardiology. conitnue ASA, atenolol # HTN - continue atenolol # anxiety/depression - continue bupropino, lorazepam # VTE ppx: LMWH In my clinical judgment, the patient requires continued inpatient hospitalization for the following reasons: inpt ischemic evaluation Time Spent With Patient Time: Total time managing care of this patient today _25___ minutes. Quality Stroke Does the patient have a stroke diagnosis?: No VTE Prior VTE?: No VTE Risk Level:: Medical - moderate - high VTE Device Contraindication: N/A - Device Ordered VTE Drug Contraindication: N/A - Med Ordered
--- NOTE | 2022-09-06 15:23 | MHC.CM.PN ---
PATIENT LIVES WITH HER HCP/SPOUSE, ELVIS. COPY OF HCP REQUESTED. SHE OCCASIONALLY USES A CANE. NO [facility] OR ELDER SERVICES PLAN IS FOR DOBUTAMINE STRESS TEST IN THE MORNING (09/07/22) AND, DEPENDING ON RESULTS, HOME VERSUS ACUTE CARE TRANSFER. SERA SIMON X 4 IMM 09/06 IN CHART
[2022-09-06 15:35] VITALS: BP 117/70; PULSE 61; RESP 18; TEMP 35.7; O2SAT 97
[2022-09-06 19:42] LABS: PTT Heparin Drip 128.2 SEC (53-77.9)
[2022-09-06 20:00] VITALS: BP 106/61; PULSE 62; RESP 16; TEMP 36.1; O2SAT 97
[2022-09-06 21:03] LABS: PTT Heparin Drip 72.4 SEC (53-77.9)
[2022-09-06 23:40] VITALS: BP 103/68; PULSE 60; RESP 18; TEMP 36.2; O2SAT 97
[2022-09-07 03:05] VITALS: BP 138/70; PULSE 59; RESP 16; TEMP 36.4; O2SAT 96
[2022-09-07 03:49] LABS: Hematocrit 42.7 % (37.0-47.0); Hemoglobin 14.4 g/dl (12.0-16.0); Mean Corpuscular HGB Conc 33.7 g/dl (31.0-35.0); Mean Corpuscular Hemoglobin 32.1 pg (27.0-33.0); Mean Corpuscular Volume 95.1 fL (80.0-98.0); Mean Platelet Volume 10.4 fL (9.4-12.3); Platelet Count 182 X10*3/uL (160-400); Red Blood Count 4.49 X10*6/uL (4.20-5.50); Red Cell Distribution Width 12.2 % (11.0-16.0)
[2022-09-07 03:57] LABS: INTERNATIONAL NORM RATIO 1.2 (0.9-1.1); Prothrombin Time 13.4 SEC (10.0-13.1)
[2022-09-07 03:59] LABS: PTT Heparin Drip 74.8 SEC (53-77.9)
[2022-09-07] MEDS: Omeprazole 20 MG CAPSULE.DR PO (06:05)
[2022-09-07 08:00] VITALS: BP 119/56; PULSE 60; RESP 18; TEMP 36.3; O2SAT 95
[2022-09-07] MEDS: Multivitamin TABLET 1 TAB PO (08:34)
[2022-09-07] MEDS: Cholecalciferol (Vitamin D3) 25 MCG TABLET 50 MCG PO (08:35)
[2022-09-07] MEDS: Aspirin 81 MG TAB.CHEW PO (08:35)
[2022-09-07] MEDS: atenoloL 100 MG TABLET PO (08:35)
[2022-09-07] MEDS: 0.9 % Sodium Chloride Flush 3 ML SYRINGE IVFLUSH (08:36)
--- NOTE | 2022-09-07 11:13 | PM.DS ---
DS: Providers Provider Date of Service: 09/07/22 Date of admission: 09/05/22 16:42 Date of discharge: 09/07/22 Primary care physician: Alberto Medel MD Consults: 09/05/22 15:42 Consult to Cardiology Stat Consulting Provider: Angel Browning Reason for consultation: Chest pain, EKG changes Has provider been notified: Yes DS: Diagnosis Discharge Diagnosis (1) Chest pain: Status: Acute (2) Electrocardiogram showing T wave abnormalities: Status: Acute (3) Hypertension: Status: Acute (4) Obesity: Status: Acute (5) Regional wall motion abnormality of heart: Status: Acute DS: Summary Hospital Course Hospital Course: from admission H+P by hospitalist E[employer] Erinbashir Guzman, 09/05/22: This is a 67 old female with a past medical history as noted below who presented to the emergency department for an evaluation of chest pain that woke her up from sleep at around 07:00 this morning. Upon further assessment, patient reports that she was woken up from her sleep due to a cramp/tightness to the midsternal/midepigastric region without radiation. She also reports that this mid-sternal chest pain was worse with inspiration. Patient reports that earlier blood pressure was taken by her son and was noted to be elevated, reports blood pressure 151/88.? patient reports she attempted to take Tylenol at home but this did not relieve her pain so she seeked emergency evaluation. She does report a recent illness 2 weeks ago with a non-productive cough and associated shortness of breath. At current time and during onset of symptoms, patient denies diaphoresis, lightheadedness, dizziness, nausea, vomiting, abdominal pain, neck, jaw or back radiation. patient also denies a history of cardiac disease or episodes like this in the past. Chest x-ray:? No acute pulmonary findings Initial laboratory results:? CBC and BMP unremarkable. Influenza A/B, RSV and SARs-2 not detected. In the emergency department the patient received full dose aspirin, sublingual nitroglycerin x2 as well as fentanyl 25 mcg IV.? Cardiology was consulted who recommended against a heparin drip however did recommend further workup The decision was made to admit? Patient for medical management. This 67yo F with HTN, anxiety, obesity who woke up with substernal chest pain was admitted for further workup due to anterior T-waves inversions on EKG.? Three serial hs-Tn-I measurements were negative. However, TTE showed basal inferior segment hypokinesis. Cardiology was consulted. She could not tolerate a nuclear stress test due to claustrophobia. She was heparinized and transferred to [facility] for diagnostic cardiac catheterization. Time Spent with Patient Time attestation: Total time managing care of this patient today _40___ minutes. Discharge coordination time: Greater than 30 minutes Quality: Safe Use of Opioids Does Pt have an Active Cancer Diagnosis on the Problem List?: No Quality: Stroke Does the patient have a stroke diagnosis?: No Physical Exam Vital Signs: Vital Signs: Last Vital Signs Temp 97.4 F 09/07/22 08:00 Pulse 60 09/07/22 08:00 Resp 18 09/07/22 08:00 BP 119/56 L 09/07/22 08:00 Pulse Ox 95 09/07/22 08:00 O2 Del Method 09/07/22 08:00 BMI result Body Mass Index 35.9 Gen: in no acute distress HEENT: sclera anicteric, moist mucus membranes Neck: supple Lungs: clear to auscultation bilaterally Heart: regular rate and rhythm, no murmurs Abd: soft, non-tender, non-distended Ext: no edema Skin: warm/well-perfused Neuro: alert and oriented x3, no focal findings Psych: appropriate affect DS: Data Data Completed and Pending Completed studies during hospitalization [Text1]: Laboratory Results WBC 8.0 X10*3/uL (4.8-10.8) 09/07/22 03:40 RBC 4.49 X10*6/uL (4.20-5.50) 09/07/22 03:40 Hgb 14.4 g/dl (12.0-16.0) 09/07/22 03:40 Hct 42.7 % (37.0-47.0) 09/07/22 03:40 MCV 95.1 fL (80.0-98.0) 09/07/22 03:40 MCH 32.1 pg (27.0-33.0) 09/07/22 03:40 MCHC 33.7 g/dl (31.0-35.0) 09/07/22 03:40 RDW 12.2 % (11.0-16.0) 09/07/22 03:40 Plt Count 182 X10*3/uL (160-400) 09/07/22 03:40 MPV 10.4 fL (9.4-12.3) 09/07/22 03:40 Immature Gran % (Auto) 0.3 % (0.0-0.4) 09/05/22 09:47 Neut % (Auto) 69.3 % (45-73) 09/05/22 09:47 Lymph % (Auto) 20.4 % (20-40) 09/05/22 09:47 Harding % (Auto) 8.6 % (2-11) 09/05/22 09:47 Eos % (Auto) 0.9 % (0-4) 09/05/22 09:47 Baso % (Auto) 0.5 % (0-2) 09/05/22 09:47 Lymph # (Auto) 2.0 X10*3/uL (1.2-4.9) 09/05/22 09:47 Harding # (Auto) 0.9 X10*3/uL (0.1-1.2) 09/05/22 09:47 Eos # (Auto) 0.1 X10*3/uL (0.0-0.4) 09/05/22 09:47 Baso # (Auto) 0.1 X10*3/uL (0.0-0.2) 09/05/22 09:47 Abs Immat Gran (auto) 0.03 X10*3/uL (0.00-0.03) 09/05/22 09:47 Absolute Neuts (auto) 6.9 x10*3/uL (2.0-8.3) 09/05/22 09:47 Absolute Nucleated RBC 0.000 X10*3/uL (0.0-0.012) 09/07/22 03:40 Nucleated RBC % (auto) 0.0 /100WBC (0.0-0.2) 09/07/22 03:40 ESR 23 MM/HR (0-20) H 09/05/22 09:47 PT 13.4 SEC (10.0-13.1) H 09/07/22 03:40 INR 1.2 (0.9-1.1) H 09/07/22 03:40 APTT 37.3 SEC (26.0-36.4) H 09/05/22 09:47 aPTT Heparin Protocol 74.8 SEC (53-77.9) 09/07/22 03:40 D-Dimer High Sensitivty 191 NG/ML 09/05/22 Unknown Sodium 141 mmol/L (135-145) 09/06/22 06:24 Potassium 3.7 mmol/L (3.3-5.1) 09/06/22 06:24 Chloride 107 mmol/L (96-108) 09/06/22 06:24 Carbon Dioxide 26 mmol/L (22-29) 09/06/22 06:24 Anion Gap 12 (-20) 09/06/22 06:24 BUN 11 mg/dL (9-16) 09/06/22 06:24 Creatinine 0.91 mg/dL (0.5-1.4) 09/06/22 06:24 Estim Creat Clear Calc 76.8 09/06/22 06:24 Estimated GFR > 60 09/06/22 06:24 Random Glucose 95 mg/dL (60-115) 09/06/22 06:24 Calcium 8.8 mg/dL (8.4-10.2) D 09/06/22 06:24 Magnesium 1.9 mg/dL (1.6-2.6) 09/05/22 18:33 Total Bilirubin 0.7 mg/dL (0.0-1.0) 09/05/22 09:47 AST 30 U/L (5-31) 09/05/22 09:47 ALT 23 U/L (0-31) 09/05/22 09:47 Alkaline Phosphatase 83 U/L (39-117) 09/05/22 09:47 Troponin I High Sens < 3.5 ng/L (<3.5-17.0) 09/05/22 16:41 C-Reactive Protein 0.29 mg/dL (< or = 0.50) 09/05/22 09:47 B-Natriuretic Peptide 79 pg/mL (<100) 09/05/22 09:47 Total Protein 7.4 g/dL (6.5-8.0) 09/05/22 09:47 Albumin 4.0 g/dL (3.5-5.0) 09/05/22 09:47 Lipase 49 U/L (8-78) 09/05/22 09:47 Influenza Type A (PCR) NEGATIVE (Negative) 09/05/22 09:47 Influenza Type B (PCR) NEGATIVE (Negative) 09/05/22 09:47 RSV RNA Qual (PCR) NEGATIVE (Negative) 09/05/22 09:47 SARS-CoV-2 RNA (RT-PCR) NEGATIVE (Negative) 09/05/22 09:47 Impressions Chest X-Ray 09/05/22 08:55 IMPRESSION: No acute pulmonary pathology. TTE 09/06/22 Conclusions: - 1.? Normal LV systolic function? with grade 1 diastolic? dysfunction? 2.? Moderate aortic regurgitation? 3.? Mildly dilated right ventricle and right atrium with reduced RV systolic function ? 4.? Mildly dilated ascending aorta ? 5.? Normal RV systolic pressure? 6.? No pericardial effusion? Findings Procedure Information Contrast agent, definity, is being given per protocol without apparent complications. Left Ventricle Normal left ventricular size, thickness, and systolic function. The visually estimated ejection fraction is between 65-70%.? Spectral Doppler is indicative of an impaired relaxation filling pattern.? E/E prime ratio is <8, consistent with normal filling pressures.? Evidence suggests grade I (mild) diastolic dysfunction. Wall Motion Rest Echo Findings The basal inferior segment is hypokinetic. All other scored wall segments showed normal motion. Right Ventricle Mildly increased right ventricular cavity size.? There is mildly decreased right ventricular systolic function. Atria The left atrium is normal in size.? Interatrial shunt cannot be excluded. The right atrium is mildly dilated. Aortic Valve The aortic valve structure and function is likely normal.? There is no aortic valve stenosis.? There is moderate aortic valve regurgitation. Mitral Valve Normal mitral valve structure and function.? There is trace mitral valve regurgitation.? There is no mitral valve stenosis. Pulmonic Valve The pulmonic valve is likely normal.? There is mild pulmonic valve regurgitation. Tricuspid Valve Normal tricuspid valve structure.? There is mild tricuspid valve regurgitation.? The right ventricular systolic pressure is normal.? The right ventricular systolic pressure is 25 mmHg.? Normal right atrial pressure. There is no evidence of pulmonary hypertension. Great Vessels The pulmonary artery was not well visualized.? There is mild dilatation of the ascending aorta measuring 3.80 cm. Venous The inferior vena cava is normal in size and collapses greater than 50% with inspiration. Pericardium/Pleural There is no evidence of pericardial effusion. Prior Study Comparison No prior study available for comparison. Discharge Plan Discharge Patient Disposition: [facility] Discharge Diagnosis: chest pain, EKG and echocardiogram abnormalities Referrals: Alberto Medel MD [Primary Care Provider] - 1 Week Angel Browning MD [Physician] - 1 Week Discharge Medications: New nitroglycerin [Nitrostat] 0.4 mg Tablet, Sublingual 0.4 mg sublingual Q5MX3 PRN (Reason: Chest Pain) Qty: 1 0RF aspirin 81 mg Tablet,Chewable 81 mg PO DAILY Qty: 1 0RF heparin (porcine) 5,000 unit/mL Solution 4,300 unit IVPUSH PROTOCOL BOLUS PRN (Reason: 40 Unit/Kg - Heparin Protocol) Qty: 1 0RF heparin (porcine) 5,000 unit/mL Solution 8,600 unit IVPUSH PROTOCOL BOLUS PRN (Reason: 80 Unit/Kg - Heparin Protocol) Qty: 1 0RF heparin(porcine) in 0.45% NaCl 25,000 unit/250 mL Parenteral Solution 25,000 unit continuous IV infusion .Q0M Qty: 1 0RF Continued atenolol 100 mg tablet 100 mg PO DAILY Qty: 90 8RF lorazepam 0.5 mg tablet 0.5 mg PO DAILY PRN (Reason: anxiety) Qty: 60 5RF bupropion HCl 200 mg tablet sustained-release 12 hr 200 mg PO BID Qty: 180 5RF multivitamin Tablet 1 tab PO DAILY cholecalciferol (vitamin D3) [Vitamin D3] 50 mcg (2,000 unit) Tablet 50 mcg PO DAILY omeprazole 20 mg capsule,delayed release(DR/EC) 20 mg PO DAILY@0630 Discharge Orders: Discharge Order (Routine); Ordered 12/22/22 Ordered By: Adriel Carter Diet: Advance to usual diet Activity on Discharge: As tolerated Stand Alone Forms: Patient Portal Discharge page Care Plan Goals: cardiac workup Health Concerns: chest pain, EKG and echocardiogram abnormalities Plan of Treatment: transfer to [facility] for cardiac catheterization Assessment: See Discharge Summary.
--- NOTE | 2022-09-07 11:49 | MHC.CM.PN ---
ACUTE CARE TRANSFER TO [facility]
[2022-09-07 12:00] VITALS: RESP 18
--- NOTE | 2022-09-07 12:19 | PM.PNCARD ---
Subjective Subjective Date of Service: 09/07/22 <KELLY Davila - Last Filed: 09/07/22 12:26> 09/07/22 <Angel Browning MD - Last Filed: 09/07/22 16:48> Principal diagnosis: chest pains, abnormal EKG <KELLY Davila - Last Filed: 09/07/22 12:26> Interval history: Seen at 1100. Today she reports feeling well. No recurrent chest discomfort. Did eat breakfast this am. NPO since then. Heparin drip infusing. Tele shows SR, rates 60-70s. Ageeable to proceed with cardiac cath. Plan for transfer and cath today. She is aware. <KELLY Davila - Last Filed: 09/07/22 12:26> Review of Systems Review of Systems as above <KELLY Davila - Last Filed: 09/07/22 12:26> Yes all other systems are reviewed and are negative <KELLY Davila - Last Filed: 09/07/22 12:26> Physical Exam Vital Signs: Last Vital Signs Temp 97.4 F 09/07/22 08:00 Pulse 60 09/07/22 08:00 Resp 18 09/07/22 08:00 BP 119/56 L 09/07/22 08:00 Pulse Ox 95 09/07/22 08:00 O2 Del Method 09/07/22 08:00 BMI result Body Mass Index 35.9 <KELLY Davila - Last Filed: 09/07/22 12:26> Const General: cooperative, healthy appearing, comfortable and no acute distress <KELLY Davila - Last Filed: 09/07/22 12:26> Orientation/consciousness: patient oriented x3 <KELLY Davila - Last Filed: 09/07/22 12:26> Neck Neck: Yes normal visual inspection and Yes no JVD <KELLY Davila Last Filed: 09/07/22 12:26> Resp Effort & Inspection: normal respiratory effort <KELLY Davila Last Filed: 09/07/22 12:26> Auscultation: clear to auscultation bilaterally, no crackles, no rales, no rhonchi and no wheezes <Sailaja Hammond NPC - Last Filed: 09/07/22 12:26> Cardio Jugular venous distension: no JVD <Sailaja Hammond NPC - Last Filed: 09/07/22 12:26> Rate: regular rate <Sailaja Hammond NPC - Last Filed: 09/07/22 12:26> Rhythm: regular rhythm <Sailaja Hammond NPC - Last Filed: 09/07/22 12:26> Heart sounds: S1 normal heart sound present, S2 normal heart sound present, no gallops, no murmurs and no rubs <Sailaja Hammond NPC - Last Filed: 09/07/22 12:26> Peripheral pulses: Peripheral pulses 2+ throughout <Sailaja Hammond NPC - Last Filed: 09/07/22 12:26> GI Inspection: Yes normal to inspection <Sailaja Hammond NP-C - Last Filed: 09/07/22 12:26> Neuro General: patient oriented x3 <Sailaja Hammond NPC - Last Filed: 09/07/22 12:26> Extrem General: Yes normal to inspection, No no pedal edema and No calf tenderness <Sailaja Hammond NPC - Last Filed: 09/07/22 12:26> Psych Appearance: grossly normal <Sailaja Hammond NP - Last Filed: 09/07/22 12:26> Mental Status: mental status grossly normal <Sailaja Hammond NPC - Last Filed: 09/07/22 12:26> Speech and movement: Normal speech and movement present <Sailaja Hammond NPC - Last Filed: 09/07/22 12:26> Objective Labs and Meds Result diagrams: : 09/07/22 03:40 09/06/22 06:24 <Sailaja Hammond NPC - Last Filed: 09/07/22 12:26> Lab results: Laboratory Results - last 24 hr 09/06/22 09/06/22 09/07/22 18:47 20:48 03:40 WBC RBC Hgb Hct MCV MCH MCHC RDW Plt Count MPV Absolute Nucleated RBC Nucleated RBC % (auto) PT INR aPTT Heparin Protocol 128.2 H* D 72.4 D 74.8 09/07/22 09/07/22 03:40 03:40 WBC 8.0 RBC 4.49 Hgb 14.4 Hct 42.7 MCV 95.1 MCH 32.1 MCHC 33.7 RDW 12.2 Plt Count 182 MPV 10.4 Absolute Nucleated RBC 0.000 Nucleated RBC % (auto) 0.0 PT 13.4 H INR 1.2 H aPTT Heparin Protocol <KELLY Davila - Last Filed: 09/07/22 12:26> Progress Note: A&P Assessment and plan (1) Chest pain: Status: Acute <KELLY Davila - Last Filed: 09/07/22 12:26> Assessment and Plan: Woke with left CP 09/05/22Relieved in ED with NTG and fentanyl. No recurrent CP since then. No cardiac hx. Risk factors of HTN, obesity, age. EKG initially shows SR, T wave inversions V2-V4 - Less prominant on EKG hours later. Troponins normal. CXR normal. Has been on aspirin and atenolol. Started on Heparin drip for anticoagulation, per protocol. We ordered pharm nuclear stress test and she was unable to complete due to claustrophobia. Unable to exercise on treadmill. Echo shows EF 65-70%, grade I diastolic dysfunction, mod AR, basal inferior hypokinetic, mild decrease in RV SF. Feels good today, no CP. Tele stable SR. Dr Browning and myself discussed cardiac cath, risks, with her and she sis agreeable to proceed. Keep NPO. We will be making arrangements to transfer her to [facility] for cardiac cath today. Pt informed. <KELLY Davila - Last Filed: 09/07/22 12:26> (2) Electrocardiogram showing T wave abnormalities: Status: Acute <KELLY Davila - Last Filed: 09/07/22 12:26> (3) Hypertension: Status: Acute <KELLY Davila - Last Filed: 09/07/22 12:26> Assessment and Plan: Well controlled. Continue atenolol <KELLY Davila - Last Filed: 09/07/22 12:26> (4) Obesity: Status: Acute <KELLY Davila - Last Filed: 09/07/22 12:26> Assessment and Plan: Cardiac risk factor <KELLY Davila - Last Filed: 09/07/22 12:26> Assessment and Plan: Patient seen and examined at bedside. Continues to be asymptomatic. Plan was to transfer to [facility] for cardiac catheterization today. She has not been transferred yet and is almost the end of the day in the cardiac catheterization lab. She can be fed for now and transferred as she gets bed availability. I am going to add further cardiac catheterization list for tomorrow. Continue heparin drip as before. Will be NPO after midnight tomorrow. Thank you for allowing me to participate in the care of your patient. Please feel free to contact me if you have any questions. <Angel Browning MD - Last Filed: 09/07/22 16:48> Time Spent With Patient Time: Total time managing care of this patient today _22__ minutes. <KELLY Davila - Last Filed: 09/07/22 12:26> Progress Note: Quality Stroke Does the patient have a stroke diagnosis?: No <KELLY Davila - Last Filed: 09/07/22 12:26> Procedures Date of Service Date of Service: 09/07/22 <KELLY Davila - Last Filed: 09/07/22 12:26>
[2022-09-07] MEDS: LORazepam 0.5 MG TABLET PO (14:57)
[2022-09-07 16:00] VITALS: BP 111/63; PULSE 59; RESP 18; TEMP 36.6; O2SAT 94
[2022-09-07] MEDS: Heparin Sodium,Porcine/1/2NS 25,000 UNIT/250 ML IV.SOLN 8.58 UNIT IVCONT (16:05)
--- NOTE | 2022-09-07 17:00 | PC.NURSE ---
Nurse to Nurse report given to Charmaine CORDERO at [facility]. Awaiting ALS transport. Patient still with heparin drip running.
== END 2022-09-07 17:55 | disposition short-term general hospital (02) ==
LOC: HO.ED 18:18 → HO.EDOVER 18:37 → HO.S3 09-06 01:19
PROVIDERS: Admitting Provider Registered Nurse; Emergency Provider Emergency Medicine Emergency Medical Services; PCP Internal Medicine; Visit Provider Family Medicine
DX: R07.9 Chest pain, unspecified (principal); R94.31 Abnormal electrocardiogram [ECG] [EKG]; R06.02 Shortness of breath; Z20.822 Contact with and (suspected) exposure to COVID-19; I10 Essential (primary) hypertension; F41.9 Anxiety disorder, unspecified; F32.A Depression, unspecified; K21.9 Gastro-esophageal reflux disease without esophagitis; E05.00 Thyrotoxicosis with diffuse goiter without thyrotoxic crisis or storm; E66.9 Obesity, unspecified; Z68.38 Body mass index [BMI] 38.0-38.9, adult; Z79.899 Other long term (current) drug therapy
CPT/HCPCS: 0241U; 36415; 71045; 80048; 80053; 83690; 83735; 83880; 84484; 85025; 85027; 85379; 85610; 85652; 85730; 86140; 93005; 93306; 96361; 96374; 96375; 99218; 99285; J3010; Q9957

== ENCOUNTER → 2022-10-05 14:25 | Outpatient (BNVA) | payer MEDICARE, SELFPAY | PROVIDERS: PCP Internal Medicine; Visit Provider Internal Medicine Cardiovascular Disease | DX: R00.2 Palpitations (principal) | CPT/HCPCS: 99212 ==

== ENCOUNTER → 2022-10-11 10:59 | Outpatient (REF) | payer MEDICARE, SELFPAY ==
--- NOTE | 2022-10-11 11:02 | HM_ITS ---
* Total monitoring time 30 days. Wear time compliance 76%. * Average ventricular rate 58/Min. Range 49 to 131/Min. About 70% of the time, rate < 100/Min. * Occasional supraventricular ectopy but low burden. One very brief run of atrial tachycardia but only a few beats. * No sustained arrhythmias. * Patient activated the symptom button 7 times; unspecified symptom. Correlates with normal sinus rhythm. MTDD
== END ==
LOC: HO.CARD 10:59
PROVIDERS: PCP Internal Medicine; Visit Provider Internal Medicine Cardiovascular Disease
DX: R00.2 Palpitations (principal)
CPT/HCPCS: 93270

== ENCOUNTER 2022-12-22 10:55 | Outpatient (REF) | payer MEDICARE, SELFPAY | END 2022-12-22 10:56 | disposition home or self-care (01) | LOC: HO.LAB 10:55 | PROVIDERS: PCP Internal Medicine; Visit Provider Urology | DX: N32.81 Overactive bladder (principal); N39.0 Urinary tract infection, site not specified; Z95.0 Presence of cardiac pacemaker; Z79.899 Other long term (current) drug therapy | CPT/HCPCS: 87086; 87088; 87186; 99212 ==

== ENCOUNTER → 2022-12-27 13:55 | Outpatient (BNVA) | payer MEDICARE, SELFPAY | PROVIDERS: PCP Internal Medicine; Referring Provider Internal Medicine; Visit Provider Internal Medicine Cardiovascular Disease | DX: I10 Essential (primary) hypertension (principal); R00.2 Palpitations | CPT/HCPCS: 99212 ==

== ENCOUNTER 2022-12-28 10:53 | Outpatient (REF) | payer MEDICARE, SELFPAY ==
[2022-12-28 11:06] LABS: MANUAL DIFF FLAG NO
[2022-12-28 11:29] LABS: Basophils Percent Auto 0.5 % (0-2); Eosinophils Absolute Auto 0.1 X10*3/uL (0.0-0.4); Eosinophils Percent Auto 2.1 % (0-4); Hematocrit 46.5 % (37.0-47.0); Hemoglobin 15.8 g/dl (12.0-16.0); Imm Gran Abs Auto 0.01 X10*3/uL (0.00-0.03); Imm Gran Pct Auto 0.2 % (0.0-0.4); Mean Corpuscular Hemoglobin 32.3 pg (27.0-33.0); Mean Corpuscular Volume 95.1 fL (80.0-98.0); Monocytes Absolute Auto 0.5 X10*3/uL (0.1-1.2); Monocytes Percent Auto 7.6 % (2-11); Neutrophils Absolute Auto 2.6 x10*3/uL (2.0-8.3); Neutrophils Percent Auto 41.6 % (45-73); Platelet Count 222 X10*3/uL (160-400); Red Blood Count 4.89 X10*6/uL (4.20-5.50); Red Cell Distribution Width 12.6 % (11.0-16.0); White Blood Count 6.2 X10*3/uL (4.8-10.8)
[2022-12-28 12:05] LABS: Alanine Aminotransferase 24 U/L (0-31); Albumin Level 4.2 g/dL (3.5-5.0); Alkaline Phosphatase 90 U/L (39-117); Anion Gap 11 (12-20); Aspartate Amino Transferase 28 U/L (5-31); Bilirubin Total 1.2 mg/dL (0.0-1.0); Blood Urea Nitrogen 18 mg/dL (9-16); Calcium 9.4 mg/dL (8.4-10.2); Carbon Dioxide 29 mmol/L (22-29); Chloride 106 mmol/L (96-108); Cholesterol 186 mg/dL; Estimated Glomerular Filt Rate 41; Glucose Fasting 110 mg/dL (60-99); HDL Cholesterol 36 mg/dL; LDL Cholesterol Calculated 121 mg/dl; Potassium 4.8 mmol/L (3.3-5.1); Sodium 141 mmol/L (135-145); Total Protein 7.2 g/dL (6.5-8.0); Triglycerides 148 mg/dL
[2022-12-28 12:25] LABS: Thyroid Stimulating Hormone 2.65 uIU/mL (0.32-4.0)
== END 2022-12-28 10:54 | disposition home or self-care (01) ==
LOC: HO.LAB 10:53
PROVIDERS: PCP Internal Medicine; Visit Provider Internal Medicine
DX: D64.9 Anemia, unspecified (principal); N28.9 Disorder of kidney and ureter, unspecified; E78.5 Hyperlipidemia, unspecified; E03.9 Hypothyroidism, unspecified
CPT/HCPCS: 36415; 80053; 80061; 84443; 85025

== ENCOUNTER → 2023-02-26 11:24 | Outpatient (BNVA) | payer MEDICARE, SELFPAY | PROVIDERS: PCP Internal Medicine; Visit Provider Urology ==

== ENCOUNTER 2023-04-12 11:46 | Outpatient (AMB) | payer MEDICARE, SELFPAY ==
[2023-04-12 11:50] VITALS: BP 130/70; PULSE 55; O2SAT 96; BMI 36.9
--- NOTE | 2023-04-12 11:50 | A.OFFPC_ITS ---
Vital Signs 04/12/23 11:50 Height 5 ft 8 in Weight 243 lb BMI 36.9 BP 130/70 Blood Pressure Location Lt brachial Position Sitting Pulse 55 Pulse Source Pulse Oximeter Temp Source Skin Pulse Oximetry (%) 96 Oxygen Delivery Method Room Air Intake Visit Reasons: 3 month f/u [employer] Required: No Allergies lactose [LACTOSE] Allergy (Unknown, Verified 04/12/23 11:50) SEVERE DIARRHEA- CRAMPS Medication List - Last Reconciled 04/12/23 by Alberto Medel MD atenolol 100 mg PO DAILY bupropion HCl 200 mg PO BID cholecalciferol (vitamin D3) (Vitamin D3) 50 mcg PO DAILY lorazepam 0.5 mg PO BID-TID PRN multivitamin 1 tab PO DAILY omeprazole 20 mg PO DAILY@0630 Tobacco use date assessed: 04/12/23 Fall risk assessment: No Falls in past year Last assessed Fall Risk: 04/12/23 Dental Screening Dental Screen Date: 04/12/23 HPI 3 month f/u HPI Details HTN OA and depression on rx; doing well but OA worse PFSH Medical History (Updated 04/12/23 @ 12:40 by Alberto Medel MD) Anxiety Breast cancer, right Chest pain Depression Graves disease History of stress incontinence Hypertension Obesity Surgical History History of arthroscopy of right knee History of cardiac cath History of carpal tunnel release History of cholecystectomy History of D&C History of hip replacement History of inguinal hernia repair History of lumpectomy of right breast History of surgery History of tonsillectomy History of total abdominal hysterectomy and bilateral salpingo-oophorectomy History of wisdom tooth extraction Hx of colonoscopy Hx of total mastectomy of right breast Family History Father Diabetes Mother Hypertension Throat cancer Maternal Grandmother Diabetes Maternal Uncle Cancer Social History Household Members: Family Housing: House Do you presently have visiting nurse or other home services: No Alcohol intake: never Patient Tobacco Use Status: Never used Tobacco e-Cigarette/Vaping Use: Never Used Second Hand Smoke Exposure: No Advance Directives Date on File: 09/06/22 service: No Current occupational status: retired Current occupational exposures/hazards: No Cognitive needs: No Hearing needs: No Vision needs: No Questionnaire PHQ-9 Over the last 2 weeks, how often have you been bothered by any of the following problems? Depression Screening Interpretation: Negative Source: Developed by Drs. Dallas Mcleod, Agueda De La Rosa, Spencer Sahu and colleagues, with an educational jackelin from [employer]. Thrive Questionnaire Date Thrive assessed: 10/12/22 Currently or been in a relationship where the following occur: no concerns reported AUDIT C Alcohol Use Questionnaire (AUDIT-C) 1. How often do you have a drink containing alcohol?: Never Total Score: 0 Score Reviewed/Action Taken: Yes GOKUL-7 AMB Questionnaire GOKUL-7 Date GOKUL - 7 assessed: 10/12/22 Source: Developed by Drs. Dallas Mcleod, Agueda De La Rosa, Spencer Sahu and colleagues, with an educational jackelin from [employer]. Review of Systems Const Denies chills, Denies headache(s) and Denies weight loss ENT Denies headache(s) Card Denies chest pain, Denies syncope, Denies irregular heart rhythm and Denies dyspnea Resp Denies chest congestion, Denies cough and Denies dyspnea GI Denies abdominal pain, Denies change in stool character, Denies nausea and Denies vomiting Musc Denies deformity and Denies joint swelling Neuro Denies syncope and Denies headache(s) Physical exam (Primary Care) Vital Signs: Last Vital Signs Pulse 55 04/12/23 11:50 BP 130/70 04/12/23 11:50 Pulse Ox 96 04/12/23 11:50 Oxygen Delivery Method Room Air 04/12/23 11:50 BMI result Body Mass Index 36.9 Tobacco/Smoking Status: Tobacco use Status Tobacco use date assessed 04/12/23 04/12/23 11:54 Patient Tobacco Use Status Never used Tobacco 04/12/23 11:54 e-Cigarette/Vaping Use Never Used 04/12/23 11:54 Depression Screening Interpretation: Negative Thrive Assessment: Date of Thrive Assessment Date Thrive assessed 10/12/22 04/12/23 11:54 Currently or been in a relationship where the following occur: no concerns reported Const General: cooperative, healthy appearing, comfortable and no acute distress Chest Chest palpation & inspection: normal inspection of the chest Resp Effort & Inspection: normal respiratory effort Auscultation: clear to auscultation bilaterally Percussion: percussion normal Cardio Jugular venous distension: no JVD Rate: regular rate Rhythm: regular rhythm Assessment and Plan Assessment & Plan (1) Hypertension: Code(s): I10 - Essential (primary) hypertension Plan: stable; same rx (2) Osteoarthritis: Code(s): M19.90 - Unspecified osteoarthritis, unspecified site Plan: ref rheum (3) Depression: Code(s): F32.A - Depression, unspecified Plan: stable; same rx Orders: Referrals Rheumatology Referral M1. - Unspecified osteoarthritis, unspecified site Coding Level of Care Code Est Pt Level 4 (61756) Diagnoses Hypertension I10 Osteoarthritis M19.90 Depression F32.A
== END 2023-04-12 12:07 | disposition home or self-care (01) ==
PROVIDERS: Visit Provider Internal Medicine
DX: I10 Essential (primary) hypertension (principal); M19.90 Unspecified osteoarthritis, unspecified site; F32.A Depression, unspecified
CPT/HCPCS: 99214

== ENCOUNTER 2023-07-04 12:49 | Outpatient (AMB) | payer MEDICARE, SELFPAY ==
[2023-07-04 12:57] VITALS: BP 120/80; PULSE 61; BMI 37.2
--- NOTE | 2023-07-04 12:57 | A.OFFVIS_ITS ---
Intake Vital Signs 07/04/23 12:57 Height 5 ft 8 in Weight 244 lb 11.41 oz BMI 37.2 BP 120/80 Blood Pressure Location Lt brachial Position Sitting Pulse 61 Intake Visit Reasons: 6 mth f/up Intake Note: 6 month follow-up with ekg feeling good Nursing Professor Required: No Allergies lactose [LACTOSE] Allergy (Unknown, Verified 04/12/23 11:50) SEVERE DIARRHEA- CRAMPS Medication List - Last Reconciled 07/04/23 by Angel Browning MD atenolol 100 mg PO DAILY bupropion HCl 200 mg PO BID cholecalciferol (vitamin D3) (Vitamin D3) 50 mcg PO DAILY lorazepam 0.5 mg PO BID-TID PRN multivitamin 1 tab PO DAILY omeprazole 20 mg PO DAILY@0630 HPI HPI Comments History of Present Illness Details Pleasant 67-year-old lady here for follow-up. She was seen for chest discomfort ECG changes and was taken for cardiac catheterization. She was found to have no significant coronary disease. On follow-up she is denying any chest discomfort but has been experiencing rapid palpitations. Two episodes happened 2 weeks apart which she has sudden-onset palpitations which lasted for many minutes. She also checked her blood pressure during 1 of this episode and was significantly elevated but it was a wrist blood pressure cuff and on repeating blood pressure was normal. Blood pressure in the office is good. She has no further chest discomfort as mentioned. After discussion she had a cardiac event monitor arranged. She finished a cardiac event monitor but it did not show any significant arrhythmia. She had occasional supraventricular ectopy with low burden. One very brief run of atrial tachycardia again for few beats. The patient activated the button 7 times and she was in sinus rhythm. She on follow-up is saying that she gets palpitations when she is anxious. Also has noticed some mild pressure in the chest when she is in a stressful situat ion and anxious. 07/04/23: She returns for follow-up. H er blood pressure control is great. She is denying any palpitations, chest discomfort shortness of breath. Overall feeling great. [facility] Medical History (Updated 04/12/23 @ 12:40 by Alberto Medel MD) Chest pain Anxiety History of stress incontinence Graves disease Depression Breast cancer, right Obesity Hypertension Surgical History History of cardiac cath Hx of colonoscopy Hx of total mastectomy of right breast History of cholecystectomy History of surgery History of inguinal hernia repair History of D&C History of lumpectomy of right breast History of total abdominal hysterectomy and bilateral salpingo-oophorectomy History of arthroscopy of right knee History of carpal tunnel release History of hip replacement History of wisdom tooth extraction History of tonsillectomy Family History Father Diabetes Mother Hypertension Throat cancer Maternal Grandmother Diabetes Maternal Uncle Cancer Social History Household Members: Family Housing: House Do you presently have visiting nurse or other home services: No Alcohol intake: never Patient Tobacco Use Status: Never used Tobacco e-Cigarette/Vaping Use: Never Used Second Hand Smoke Exposure: No Advance Directives Date on File: 09/06/22 service: No Current occupational status: retired Current occupational exposures/hazards: No Cognitive needs: No Hearing needs: No Vision needs: No Review of Systems Const Denies chills, Denies fatigue, Denies fever(s), Denies frequent falls, Denies weakness, Denies weight gain and Denies weight loss ENT Denies dizziness Card Denies chest pain, Denies leg edema, Denies lightheadedness, Denies palpitations, Denies dyspnea, Denies dyspnea on exertion, Denies orthopnea and Denies other (loss of consciousness) Resp Denies cough, Denies dyspnea and Denies dyspnea on exertion GI Denies hematochezia and Denies change in stool character Musc Denies abnormal gait, Denies muscle weakness, Denies numbness, Denies radiating pain into limb and Denies tingling Neuro Denies abnormal gait, Denies dizziness, Denies frequent falls, Denies numbness, Denies tingling and Denies weakness Endo Denies fatigue and Denies palpitations Physical Exam Vital Signs: Last Vital Signs Pulse 61 07/04/23 12:57 BP 120/80 07/04/23 12:57 BMI result Body Mass Index 37.2 GENERAL APPEARANCE: in no acute distress, pleasant. NECK: no carotid bruit, no jugular venous distention. SKIN: no suspicious lesions, warm and dry. HEART: no murmurs, regular rate and rhythm. LUNGS: clear to auscultation bilaterally. ABDOMEN: soft, nontender. EXTREMITIES: no edema. PERIPHERAL PULSES: equal. NEUROLOGIC: No gross deficits, AAO X 3 Office Procedures EKG Details: Normal sinus rhythm 61 beats per minute, normal axis, poor R-wave progression, QTC 424 milliseconds. [id number], Complete Assessment & Plan Assessment & Plan (1) Hypertension: Code(s): I10 - Essential (primary) hypertension Plan Pleasant 68-year-old female who is here for follow-up. She is denying any palpitations or chest discomfort on follow-up. Previously had cardiac catheterization which did not show any significant coronary artery disease. Blood pressure control is good. She should continue same medications for now. She will follow-up with us in 6 months. Thank you for allowing me to participate in the care of your patient. Please feel free to contact me if you have any questions. Coding Level of Care Code Est Pt Level 3 (26746) Diagnoses Hypertension I10 CPT Codes EKG - CPT: 33981-[id number], Complete ([id number])
== END 2023-07-04 13:21 | disposition home or self-care (01) ==
PROVIDERS: PCP Internal Medicine; Visit Provider Internal Medicine Cardiovascular Disease
DX: I10 Essential (primary) hypertension (principal)
CPT/HCPCS: 93010; 99213

== ENCOUNTER → 2023-07-04 12:49 | Outpatient (BNVA) | payer MEDICARE, SELFPAY | PROVIDERS: PCP Internal Medicine; Visit Provider Internal Medicine Cardiovascular Disease | DX: I10 Essential (primary) hypertension (principal) | CPT/HCPCS: 93005; 99212 ==

== ENCOUNTER 2023-07-13 11:06 | Outpatient (AMB) | payer MEDICARE, SELFPAY ==
[2023-07-13 11:09] VITALS: BP 120/74; PULSE 64; TEMP 35.8; O2SAT 95; BMI 37.4
--- NOTE | 2023-07-13 11:09 | MHC.OFFVIS ---
Intake Vital Signs 07/13/23 11:09 Height 5 ft 8 in Weight 246 lb 4.101 oz BMI 37.4 BP 120/74 Blood Pressure Location Rt brachial Position Sitting Pulse 64 Pulse Source Pulse Oximeter Temp 96.5 F L Temp Source Skin Pulse Oximetry (%) 95 Intake Visit Reasons: OA Intake Note: New pt presents today for OA consult. C/o pain in multiple joints Tylenol, nsaids, voltaren , biofreeze, lidoicaine patches Product Safety Technical Assistant Required: No Accompanied by: Self / Same As Patient Allergies lactose [LACTOSE] Allergy (Unknown, Verified 07/13/23 11:12) SEVERE DIARRHEA- CRAMPS HPI HPI Comments History of Present Illness Details In this is a 68-year-old female who presents for evaluation of generalized osteoarthritis. 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 Surgery was suggested but patient wanted to postpone it as much as possible. She uses multiple shoe inserts. She received a steroid injection in her right big toe which only gave her relief for 1 week. She also has bilateral hand osteoarthritis. She uses Tylenol, Voltaren gel, Aleve or Advil, depending on her pain. She also sometimes uses Biofreeze. She uses lidocaine patches for her back. [facility] Medical History Chest pain Anxiety History of stress incontinence Graves disease Depression Breast cancer, right Obesity Hypertension Surgical History History of cardiac cath Hx of colonoscopy Hx of total mastectomy of right breast History of cholecystectomy History of surgery History of inguinal hernia repair History of D&C History of lumpectomy of right breast History of total abdominal hysterectomy and bilateral salpingo-oophorectomy History of arthroscopy of right knee History of carpal tunnel release History of hip replacement History of wisdom tooth extraction History of tonsillectomy Family History Father Diabetes Mother Hypertension Throat cancer Maternal Grandmother Diabetes Maternal Uncle Cancer Social History Household Members: Spouse Housing: House Do you presently have visiting nurse or other home services: No Alcohol intake: never Patient Tobacco Use Status: Never used Tobacco e-Cigarette/Vaping Use: Never Used Second Hand Smoke Exposure: No Advance Directives Date on File: 09/06/22 service: No Current occupational status: retired Current occupational exposures/hazards: No Cognitive needs: No Hearing needs: No Vision needs: No Review of Systems Const Reports fatigue and Reports weakness Eyes Reports dry eyes ENT Reports hoarseness and Reports tinnitus Musc Reports deformity, Reports arthralgias, Reports limited range of motion and Reports stiffness Skin/Breast Reports alopecia Neuro Reports weakness Psych Reports anxiety and Reports depression Endo Reports fatigue Physical Exam Vital Signs: Last Vital Signs Temp 96.5 F L 07/13/23 11:09 Pulse 64 07/13/23 11:09 BP 120/74 07/13/23 11:09 Pulse Ox 95 07/13/23 11:09 BMI result Body Mass Index 37.4 Const General: cooperative, healthy appearing and comfortable Nutritional Appearance: obese morbidly obese Orientation/consciousness: patient oriented x3 Limitations: ambulation with cane HEENT Head: Yes normocephalic and Yes atraumatic Resp Effort & Inspection: normal respiratory effort and able to speak in complete sentences Neuro General: patient oriented x3 Extrem Other: Osteoarthritic changes of both hands with prominent Heberden's and Keo's nodes, minimally tender Bilateral 1st CMC joint tenderness Assessment & Plan Assessment & Plan (1) Osteoarthritis of hands, bilateral: Code(s): M19.041 - Primary osteoarthritis, right hand; M19.042 - Primary osteoarthritis, left hand Qualifiers: Osteoarthritis type: primary Qualified Code(s): M19.041 - Primary osteoarthritis, right hand; M19.042 - Primary osteoarthritis, left hand Plan: This is a 68-year-old female with generalized osteoarthritis who presents for bilateral hand osteoarthritis evaluation. There are no signs of an autoimmune rheumatic disease. Discussed nature of hand osteoarthritis and its management. Patient is not interested in occupational therapy referral at this point. Advised patient that she can take Tylenol up to 3000 mg daily for her joint pain and use Voltaren gel 4 times a day in an attempt to reduce dependence on systemic NSAIDs. Discussed possible injections for hand OA. Patient is not interested at the moment. Follow-up as needed Plan I spent 23 minutes reviewing patient's chart, evaluating patient, counseling patient and documenting in the chart Coding Level of Care Code New Pt Level 3 (70445) Diagnoses Primary osteoarthritis of both hands M19.041; M19.042 Osteoarthritis type: primary
== END 2023-07-13 11:33 | disposition home or self-care (01) ==
PROVIDERS: PCP Internal Medicine; Visit Provider Student in an Organized Health Care Education/Training Program
DX: M19.041 Primary osteoarthritis, right hand (principal); M19.042 Primary osteoarthritis, left hand
CPT/HCPCS: 99203

== ENCOUNTER → 2023-07-13 11:06 | Outpatient (BNVA) | payer MEDICARE, SELFPAY | PROVIDERS: PCP Internal Medicine; Visit Provider Student in an Organized Health Care Education/Training Program ==

== ENCOUNTER 2023-09-24 11:26 | Outpatient (AMB) | payer MEDICARE, SELFPAY ==
[2023-09-24 11:33] VITALS: BP 122/68; PULSE 68; O2SAT 97; BMI 37.1
--- NOTE | 2023-09-24 11:33 | MHC.PC.OV ---
Vital Signs 09/24/23 11:33 Height 5 ft 8 in Weight 244 lb BMI 37.1 BP 122/68 Blood Pressure Location Lt brachial Position Sitting Pulse 68 Pulse Source Pulse Oximeter Pulse Oximetry (%) 97 Oxygen Delivery Method Room Air Intake Visit Reasons: 3 month f/u Telephone Information Supervisor Required: No Spa Therapist: Not Required per policy Accompanied by: Self / Same As Patient Allergies lactose [LACTOSE] Allergy (Unknown, Verified 09/24/23 11:33) SEVERE DIARRHEA- CRAMPS Medication List - Last Reconciled 09/24/23 by Alberto Medel MD atenolol 100 mg PO DAILY bupropion HCl 200 mg PO BID cholecalciferol (vitamin D3) (Vitamin D3) 50 mcg PO DAILY lorazepam 0.5 mg PO BID-TID PRN multivitamin 1 tab PO DAILY omeprazole 20 mg PO DAILY@0630 Tobacco use date assessed: 04/12/23 Fall risk assessment: No Falls in past year Last assessed Fall Risk: 09/24/23 Dental Screening Dental Screen Date: 09/24/23 Did you have a dental visit in the last 12 months?: Yes Did you have a dental problem in the last 6 months where you did not have access to dental care?: No Was dental information given to patient?: Patient has dentist HPI 3 month f/u HPI Details HTN on Rx; doing well PFSH Medical History Chest pain Anxiety History of stress incontinence Graves disease Depression Breast cancer, right Obesity Hypertension Surgical History History of cardiac cath Hx of colonoscopy Hx of total mastectomy of right breast History of cholecystectomy History of surgery History of inguinal hernia repair History of D&C History of lumpectomy of right breast History of total abdominal hysterectomy and bilateral salpingo-oophorectomy History of arthroscopy of right knee History of carpal tunnel release History of hip replacement History of wisdom tooth extraction History of tonsillectomy Family History Father Diabetes Mother Hypertension Throat cancer Maternal Grandmother Diabetes Maternal Uncle Cancer Social History Household Members: Spouse Housing: House Do you presently have visiting nurse or other home services: No Alcohol intake: never Patient Tobacco Use Status: Never used Tobacco e-Cigarette/Vaping Use: Never Used Second Hand Smoke Exposure: No Advance Directives Date on File: 09/06/22 service: No Current occupational status: retired Current occupational exposures/hazards: No Cognitive needs: No Hearing needs: No Vision needs: Yes Questionnaire PHQ-9 Over the last 2 weeks, how often have you been bothered by any of the following problems? 1. Little interest or pleasure in doing things: not at all 2. Feeling down, depressed, or hopeless: not at all 3. Trouble falling or staying asleep, or sleeping too much: not at all 4. Feeling tired or having little energy: not at all 5. Poor appetite or overeating: not at all 6. Feeling bad about yourself - or that you are a failure or have let yourself or your family down: not at all 7. Trouble concentrating on things, such as reading the newspaper or watching television: not at all 8. Moving or speaking so slowly that other people could have noticed. Or the opposite - being so fidgety or restless that you have been moving around a lot more than usual: not at all 9. Thoughts that you would be better off or of hurting yourself in some way: not at all Total score: 0 Depression Screening Interpretation: Negative Depression Screening Done: Yes 45347 - PHQ-9 Billing: Yes Source: Developed by Drs. Dallas Mcleod, Agueda De La Rosa, Spencer Sahu and colleagues, with an educational jackelin from [employer]. Thrive Questionnaire Date Thrive assessed: 09/24/23 I am a: Patient What is your living situation today?: I have a steady place to live Within the past 12 months, did the food you bought not last and you didn't have the money to get more?: Never true Within the past 12 months, did you worry whether your food would run out before you got money to buy more?: Never true Do you have trouble paying for medicines?: No Do you have trouble getting transportation to medical appointments?: No Do you have trouble paying your heating and electricity bill?: No Do you have trouble taking care of your child, family member or friend?: No Do you have trouble with day-to-day activities such as bathing, preparing meals, shopping, managing finances, etc.?: No Are you currently unemployed and looking for a job?: No Are you interested in more education?: No Please select the resources that you would like help with: None Currently or been in a relationship where the following occur: no concerns reported AUDIT C Alcohol Use Questionnaire (AUDIT-C) 1. How often do you have a drink containing alcohol?: Never Total Score: 0 Score Reviewed/Action Taken: Yes GOKUL-7 AMB Questionnaire GOKUL-7 Date GOKUL - 7 assessed: 09/24/23 Feeling nervous, anxious, or on edge: 0 = Not at all Not being able to stop or control worryin = Not at all Worrying too much about different things: 0 = Not at all Trouble relaxin = Not at all Being so restless that it is hard to sit still: 0 = Not at all Becoming easily annoyed or irritable: 0 = Not at all Feeling afraid as if something awful might happen: 0 = Not at all Total GOKUL-7 score (0-4 normal; 5-9 mild; 10-14 moderate; 15-21 severe): 0 Source: Developed by Drs. Dallas Mcleod, Agueda De La Rosa, Spencer Sahu and colleagues, with an educational jackelin from [employer]. GOKUL-7 Assessment Billing GOKUL-7 Assessment Tool: GOKUL-7 Assessment 77713 Review of Systems Const Denies chills, Denies headache(s) and Denies weight loss ENT Denies headache(s) Card Denies chest pain, Denies syncope, Denies irregular heart rhythm and Denies dyspnea Resp Denies chest congestion, Denies cough and Denies dyspnea GI Denies abdominal pain, Denies change in stool character, Denies nausea and Denies vomiting Musc Denies deformity and Denies joint swelling Neuro Denies syncope and Denies headache(s) Physical exam (Primary Care) Vital Signs: Last Vital Signs Pulse 68 09/24/23 11:33 BP 122/68 09/24/23 11:33 Pulse Ox 97 09/24/23 11:33 Oxygen Delivery Method Room Air 09/24/23 11:33 BMI result Body Mass Index 37.1 Tobacco/Smoking Status: Tobacco use Status Tobacco use date assessed 04/12/23 09/24/23 11:34 Patient Tobacco Use Status Never used Tobacco 09/24/23 11:34 e-Cigarette/Vaping Use Never Used 09/24/23 11:34 PHQ-9: PHQ-9 Score PHQ-9: Total score 0 09/24/23 11:34 Depression Screening Interpretation: Negative Thrive Assessment: Date of Thrive Assessment Date Thrive assessed 09/24/23 09/24/23 11:34 Currently or been in a relationship where the following occur: no concerns reported Const General: cooperative, comfortable, no acute distress and alert Neck Neck: Yes no lymphadenopathy Thyroid: Thyroid normal Resp Effort & Inspection: normal respiratory effort Auscultation: clear to auscultation bilaterally Percussion: percussion normal Cardio Jugular venous distension: no JVD Palpation: normal PMI Rate: regular rate Rhythm: regular rhythm Heart sounds: S1 normal heart sound present and S2 normal heart sound present GI Inspection: Yes normal to inspection Palpation (GI): No hepatosplenomegaly present Skin General skin exam: no rashes or lesions noted Extrem General: Yes no clubbing, cyanosis or edema Assessment and Plan Assessment & Plan (1) Hypertension: Code(s): I10 - Essential (primary) hypertension Plan: stable; same rx Orders: Orders Lipid Panel Today E78.5 - Hyperlipidemia, unspecified Complete Blood Count Auto Diff Today D64.9 - Anemia, unspecified Comprehensive [place]. Panel Fast Today N28.9 - Disorder of kidney and ureter, unspecified Thyroid Stimulating Hormone Today E03.9 - Hypothyroidism, unspecified Coding Level of Care Code Est Pt Level 3 (43184) Diagnoses Hypertension I10 Additional Codes GOKUL-7 Assessment Billing - GOKUL-7 Assessment Tool: GOKUL-7 Assessment 41472 ([id number])
== END 2023-09-24 11:56 | disposition home or self-care (01) ==
PROVIDERS: PCP Internal Medicine; Visit Provider Internal Medicine
DX: I10 Essential (primary) hypertension (principal)
CPT/HCPCS: 99213

== ENCOUNTER 2023-10-11 12:14 | Outpatient (REF) | payer MEDICARE, SELFPAY ==
[2023-10-11 14:56] LABS: Appearance Urine Hazy; Color Urine Yellow; Glucose Urine UA Negative (Negative); Leukocyte Esterase Urine Moderate (2+) (Negative); Nitrite Urine Negative (Negative); PH 5.5 (5.0-9.0); Specific Gravity - Urine >= 1.030 (1.005-1.025); UMIC TRIGGER UA YES; Urine Blood Large (3+) (Negative); Urine Ketones Negative (Negative); Urine Protein 100 (2+) mg/dL (Neg-Trace)
[2023-10-11 15:17] LABS: Bacteria Urine 4+ (None Seen); Hyaline Casts Urine 0-2 /LPF (0-2); RBC Urine >20 /HPF (0-2); WBC Urine >50 /HPF (0-5)
== END 2023-10-11 12:15 | disposition home or self-care (01) ==
LOC: HO.LAB 12:14
PROVIDERS: PCP Internal Medicine; Visit Provider Urology
DX: N39.0 Urinary tract infection, site not specified (principal)
CPT/HCPCS: 81001; 87086; 87088; 87147; 87186

== ENCOUNTER 2023-12-21 12:54 | Outpatient (AMB) | payer MEDICARE, SELFPAY ==
--- NOTE | 2023-12-21 13:00 | A.OFFVIS_ITS ---
Intake Intake Visit Reasons: 1y follow up Intake Note: Patient is Present for Follow Up Urology Medication: None Antibiotic Allergies: None Blood Thinners:None Pharmacy: [facility] PVR: 0 Allergies lactose [LACTOSE] Allergy (Unknown, Verified 12/21/23 13:04) SEVERE DIARRHEA- CRAMPS Medication List - Last Reconciled 12/21/23 by Sean Puri MD atenolol 100 mg PO DAILY bupropion HCl SR 200 mg PO BID cholecalciferol (vitamin D3) (Vitamin D3) 50 mcg PO DAILY lorazepam 0.5 mg PO BID-TID PRN multivitamin 1 tab PO DAILY nitrofurantoin monohyd/m-cryst 100 mg (Macrobid) 100 mg orally use as directed after sexual intimacy; must administer with a meal/food omeprazole 20 mg PO DAILY@0630 HPI HPI Comments History of Present Illness Details 12/21/2023-- Vangie is a 67-year-old fema le who presents to the clinic for OAB follow-up. She has the InterStim in place, and states she is voiding well. She checks the battery periodically. She states that she had a UTI several weeks ago she called the office on and left a urine culture but results did not come back until Sunday or Sunday the following week and she was in pain over the weekend. She states in the past she had used an antibiotic after intercourse which helped prevent UTIs. She states that her has new onset dementia. Plan discussed will start Macrobid 100 mg post sexual activity, she will call this office and [employer] [facility] for any issues. with the InterStim. Follow-up in 1 year. Review of chart: 12/22/2022--The patient was last seen by Myra gamboa on 01/16/22 for ambulatory procedure for insertion of new InterStim battery/pacemaker and the lead was placed on the right S3 foramen. The patient had her first InterStim insertion in 2002. States improvement in condition after InterStim change on 01/16/22. Evaluation today: Blood: 2+, leukocytes: 1+, nitrite: Positive. Microscopic examination: +bacteuria I attempted to check interstim parameters but her external monitor battery was not charged. On exam: Pacemaker palpated right upper buttock. Plan: Urine for culture was ordered. Patient was advised to charge the battery a night before the next visit and will check the program and amplitude of the InterStim. Nurse visit follow-up after 2 months for urinalysis. Bactrim DS BID for 10 days was ordered. Follow-up after one year for InterStim. 12/21/2023 -- Plan discussed will start Xin crobid 100 mg post sexual activity, she will call this office and [employer] rep for any issues. with the InterStim. Follow-up in 1 year. [facility] Medical History Chest pain Anxiety History of stress incontinence Graves disease Depression Breast cancer, right Obesity Hypertension Surgical History History of cardiac cath Hx of colonoscopy Hx of total mastectomy of right breast History of cholecystectomy History of surgery History of inguinal hernia repair History of D&C History of lumpectomy of right breast History of total abdominal hysterectomy and bilateral salpingo-oophorectomy History of arthroscopy of right knee History of carpal tunnel release History of hip replacement History of wisdom tooth extraction History of tonsillectomy Family History Father Diabetes Mother Hypertension Throat cancer Maternal Grandmother Diabetes Maternal Uncle Cancer Social History Household Members: Spouse Housing: House Do you presently have visiting nurse or other home services: No Alcohol intake: never Patient Tobacco Use Status: Never used Tobacco e-Cigarette/Vaping Use: Never Used Second Hand Smoke Exposure: No Advance Directives Date on File: 09/06/22 service: No Current occupational status: retired Current occupational exposures/hazards: No Cognitive needs: No Hearing needs: No Vision needs: Yes Review of Systems Const All systems reviewed & are unremarkable except as noted in HPI and below Reports no additional complaints Eyes Reports no additional complaints ENT Reports no additional complaints Card Reports no additional complaints Resp Reports no additional complaints GI Reports no additional complaints Reports as per HPI Musc Reports no additional complaints Skin/Breast Reports system reviewed and no additional complaints, except as documented Neuro Reports no additional complaints Psych Reports no additional complaints Endo Reports no additional complaints Hernan/Lymph Reports no additional complaints Aller/Immun Reports no additional complaints Office Procedures Post Void Residual Post Residual Void Post Void Residual (PVR): 0 [id number] Void Residual by ultrasound Results AMB Urinalysis, Automated UA Leukoctes 0 John/uL Last Edit by Nisha Koehler A on 12/21/23 13:09 UA Nitrite Negative Last Edit by Nihsa Koehler, A on 12/21/23 13:09 UA Urobilinogen 0.2 mg/dL Last Edit by Nisha Koehler A on 12/21/23 13:0 9 UA Protein 15 mg/dL Last Edit by Nisha Koehler, A on 12/21/23 13:09 UA pH 5.5 Last Edit by Nisha Koehler, A on 12/21/23 13:09 UA Blood 10 Roberto/uL Last Edit by Nisha Koehler, [facility] on 12/21/23 13:09 UA Specific [place] 1.030 Last Edit by Nisha Koehler, A on 12/21/23 13: 09 UA Ketone Negative Last Edit by Nisha Koehler [facility] on 12/21/23 13:09 UA Bilirubin 0 mg/dL Last Edit by Nisha Koehler A on 12/21/23 13:09 UA Glucose 0 mg/dL Last Edit by Nisha Koehler A on 12/21/23 13:09 Results Reviewed Results Reviewed: Laboratory Last Values Urine pH (Auto) 5.5 12/21/23 13:05 Specific [place] (Auto) 1.030 12/21/23 13:05 Urine Protein (Auto) 15 mg/dL 12/21/23 13:05 Glucose (UA)(Auto) 0 mg/dL 12/21/23 13:05 Urine Ketones (Auto) Negative 12/21/23 13:05 Urine Blood (Auto) 10 Roberto/uL 12/21/23 13:05 Urine Nitrite (Auto) Negative 12/21/23 13:05 Urine Bilirubin (Auto) 0 mg/dL 12/21/23 13:05 Urine Urobilinogen (Auto) 0.2 mg/dL 12/21/23 13:05 Leukocyte Esterase (Auto) 0 John/uL 12/21/23 13:05 Collected: 10/11/23-1427 Status: COMP Req#: [id number] Received: 10/11/23-1443 Source: [facility] Sp Desc: Clean Cat Subm Dr: Sean Puri MD Ordered: Urine Culture Procedure Result Verified Urine Culture Final 10/14/23-1011 Organism 1 Escherichia coli Quant > 100,000 cfu/mL Organism 2 Strep agalactiae (Grp B) Quant 10,000 to 50,000 cfu/mL Susc N/A Susceptibility not routinely performed on this isolate. E coli M.I.C. RX --------- --- Ampicillin <=2 S Ceftriaxone <=0.25 S Gentamicin <=1 S Levofloxacin <=0.12 S Nitrofurantoin <=16 S Trimethoprim/Sulfamethoxazole <=20 S Assessment & Plan Assessment & Plan (1) Overactive bladder: Comment: InterStim placement 2002 battery exchange 2012 Code(s): N32.81 - Overactive bladder (2) UTI (urinary tract infection): Code(s): N39.0 - Urinary tract infection, site not specified Plan Plan discussed will start Macrobid 100 mg post sexual activity, she will call this office and [employer] [facility] for any issues. with the InterStim. Follow-up in 1 year. Orders: Orders AMB Urinalysis Automated Today Z13.9 - Encounter for screening, unspecified AMB Post Void Residual by ultrasound Today R39.15 - Urgency of urination Medications: New nitrofurantoin monohyd/m-cryst 100 mg (Macrobid) 100 mg orally use as directed after sexual intimacy; must administer with a meal/food 30 caps 2RF Patient Instructions: The patient had an opportunity to ask questions regarding treatment plan. All questions were answered. Laboratory studies and physical exam results were discussed and reviewed in detail. No major barriers to understanding were identified. The patient expressed understanding and agreement with the above treatment plan. The patient is aware they should contact our office by phone for worsening of their current condition or the appearance of new symptoms. Compliance is encouraged with any medications and followup testing that is ordered. It is a privilege to be allowed the opportunity to participate in the urologic care of your patient. If you have any questions or concerns regarding treatment for the above conditions please do not hesitate to contact me. The office te tere contact is [phone]. This note is constructed in part using voice recognition software. While every effort has been made to ensure accuracy contact and service clerks supervisor errors may have been included. Yours sincerely, Sean Puri MD Coding Level of Care Code Est Pt Level 4 (38581) Diagnoses Overactive bladder N32.81 UTI (urinary tract infection) N39.0 CPT Codes Post Residual Void - PVR CPT Code: [id number] Void Residual by ultrasound ([id number])
== END 2023-12-21 13:37 | disposition home or self-care (01) ==
PROVIDERS: PCP Internal Medicine; Visit Provider Urology
DX: N32.81 Overactive bladder (principal); N39.0 Urinary tract infection, site not specified; Z13.9 Encounter for screening, unspecified
CPT/HCPCS: 99214

== ENCOUNTER → 2023-12-21 12:54 | Outpatient (BNVA) | payer MEDICARE, SELFPAY | PROVIDERS: PCP Internal Medicine; Visit Provider Urology | DX: N32.81 Overactive bladder (principal); N39.0 Urinary tract infection, site not specified; Z96.0 Presence of urogenital implants | CPT/HCPCS: 51798; 81003; 99212 ==

== ENCOUNTER 2023-12-27 11:23 | Outpatient (AMB) | payer MEDICARE, SELFPAY ==
[2023-12-27 11:28] VITALS: BP 118/76; PULSE 65; O2SAT 98; BMI 36.6
--- NOTE | 2023-12-27 11:28 | A.OFFPC_ITS ---
Vital Signs 12/27/23 11:28 Height 5 ft 8 in Weight 241 lb 0.2 oz BMI 36.6 BP 118/76 Blood Pressure Location Lt brachial Position Sitting Pulse 65 Pulse Source Pulse Oximeter Pulse Oximetry (%) 98 Oxygen Delivery Method Room Air Intake Visit Reasons: 3 month f/u Physiotherapy Assistant Required: No Allergies lactose [LACTOSE] Allergy (Unknown, Verified 12/27/23 11:31) SEVERE DIARRHEA- CRAMPS Medication List - Last Reconciled 12/27/23 by Alberto Medel MD atenolol 100 mg PO DAILY bupropion HCl SR 200 mg PO BID cholecalciferol (vitamin D3) (Vitamin D3) 50 mcg PO DAILY lorazepam 0.5 mg PO BID-TID PRN multivitamin 1 tab PO DAILY omeprazole 20 mg PO DAILY@0630 Tobacco use date assessed: 12/27/23 Fall risk assessment: No Falls in past year Last assessed Fall Risk: 12/27/23 Dental Screening Dental Screen Date: 09/24/23 HPI 3 month f/u HPI Details HTN on Rx; doing well and compliant on regimen PFSH Medical History Chest pain Anxiety History of stress incontinence Graves disease Depression Breast cancer, right Obesity Hypertension Surgical History History of cardiac cath Hx of colonoscopy Hx of total mastectomy of right breast History of cholecystectomy History of surgery History of inguinal hernia repair History of D&C History of lumpectomy of right breast History of total abdominal hysterectomy and bilateral salpingo-oophorectomy History of arthroscopy of right knee History of carpal tunnel release History of hip replacement History of wisdom tooth extraction History of tonsillectomy Family History Father Diabetes Mother Hypertension Throat cancer Maternal Grandmother Diabetes Maternal Uncle Cancer Social History Household Members: Spouse Housing: House Do you presently have visiting nurse or other home services: No Alcohol intake: never Patient Tobacco Use Status: Never used Tobacco e-Cigarette/Vaping Use: Never Used Second Hand Smoke Exposure: No Advance Directives Date on File: 09/06/22 service: No Current occupational status: retired Current occupational exposures/hazards: No Cognitive needs: No Hearing needs: No Vision needs: Yes Questionnaire Thrive Questionnaire Date Thrive assessed: 09/24/23 AUDIT C Alcohol Use Questionnaire (AUDIT-C) 1. How often do you have a drink containing alcohol?: Never Total Score: 0 Score Reviewed/Action Taken: Yes GOKUL-7 AMB Questionnaire GOKUL-7 Date GOKUL - 7 assessed: 09/24/23 Source: Developed by Drs. Dallas Mcleod, Agueda De La Rosa, Spencer Sahu and colleagues, with an educational jackelin from [employer]. Review of Systems Const Denies chills, Denies headache(s) and Denies weight loss ENT Denies headache(s) Card Denies chest pain, Denies syncope, Denies irregular heart rhythm and Denies dyspnea Resp Denies chest congestion, Denies cough and Denies dyspnea GI Denies abdominal pain, Denies change in stool character, Denies nausea and Denies vomiting Musc Denies deformity and Denies joint swelling Neuro Denies syncope and Denies headache(s) Physical exam (Primary Care) Vital Signs: Last Vital Signs Pulse 65 12/27/23 11:28 BP 118/76 12/27/23 11:28 Pulse Ox 98 12/27/23 11:28 Oxygen Delivery Method Room Air 12/27/23 11:28 BMI result Body Mass Index 36.6 Tobacco/Smoking Status: Tobacco use Status Tobacco use date assessed 12/27/23 12/27/23 11:34 Patient Tobacco Use Status Never used Tobacco 12/27/23 11:34 e-Cigarette/Vaping Use Never Used 12/27/23 11:34 Thrive Assessment: Date of Thrive Assessment Date Thrive assessed 09/24/23 12/27/23 11:34 Const General: cooperative, comfortable, no acute distress and alert Neck Neck: Yes no lymphadenopathy Thyroid: Thyroid normal Resp Effort & Inspection: normal respiratory effort Auscultation: clear to auscultation bilaterally Percussion: percussion normal Cardio Jugular venous distension: no JVD Palpation: normal PMI Rate: regular rate Rhythm: regular rhythm Heart sounds: S1 normal heart sound present and S2 normal heart sound present GI Inspection: Yes normal to inspection Palpation (GI): No hepatosplenomegaly present Skin General skin exam: no rashes or lesions noted Extrem General: Yes no clubbing, cyanosis or edema Assessment and Plan Assessment & Plan (1) Hypertension: Code(s): I10 - Essential (primary) hypertension Plan: stable; same rx Coding Level of Care Code Est Pt Level 3 (76530) Diagnoses Hypertension I10
== END 2023-12-27 11:59 | disposition home or self-care (01) ==
PROVIDERS: PCP Internal Medicine; Visit Provider Internal Medicine
DX: I10 Essential (primary) hypertension (principal)
CPT/HCPCS: 99213

== ENCOUNTER 2024-01-09 13:26 | Outpatient (AMB) | payer MEDICARE, SELFPAY ==
[2024-01-09 13:31] VITALS: BP 118/72; PULSE 52; BMI 36.6
--- NOTE | 2024-01-09 13:31 | MHC.OFFVIS ---
Vital Signs 01/09/24 13:31 Height 5 ft 8 in Weight 240 lb 11.916 oz BMI 36.6 BP 118/72 Blood Pressure Location Lt brachial Position Sitting Pulse 52 Pulse Source Pulse Oximeter Intake Visit Reasons: 6 mth f/up Intake Note: pt states that she its doing fine. Marketing Development Specialist Required: No Accompanied by: Self / Same As Patient Allergies lactose [LACTOSE] Allergy (Unknown, Verified 12/27/23 11:31) SEVERE DIARRHEA- CRAMPS Medication List - Last Reconciled 01/09/24 by Angel Browning MD atenolol 100 mg PO DAILY bupropion HCl SR 200 mg PO BID cholecalciferol (vitamin D3) (Vitamin D3) 50 mcg PO DAILY lorazepam 0.5 mg PO BID-TID PRN multivitamin 1 tab PO DAILY omeprazole 20 mg PO DAILY@0630 HPI Comments Details: Pleasant 68-year-old lady here for follow-up. She was seen for chest discomfort ECG changes and was taken for cardiac catheterization. She was found to have no significant coronary disease. On follow-up she is denying any chest discomfort but has been experiencing rapid palpitations. Two episodes happened 2 weeks apart which she has sudden-onset palpitations which lasted for many minutes. She also checked her blood pressure during 1 of this episode and was significantly elevated but it was a wrist blood pressure cuff and on repeating blood pressure was normal. Blood pressure in the office is good. She has no further chest discomfort as mentioned. After discussion she had a cardiac event monitor arranged. She finished a cardiac event monitor but it did not show any significant arrhythmia. She had occasional supraventricular ectopy with low burden. One very brief run of atrial tachycardia again for few beats. The patient activated the button 7 times and she was in sinus rhythm. She on follow-up is saying that she gets palpitations when she is anxious. Also has noticed some mild pressure in the chest when she is in a stressful situation and anxious. 07/04/23: She returns for follow-up. Her blood pressure control is great. She is denying any palpitations, chest discomfort shortness of breath. Overall feeling great. 01/09/24: She is here for f/u. Doing well. No symptoms. [facility] Medical History Chest pain Anxiety History of stress incontinence Graves disease Depression Breast cancer, right Obesity Hypertension Surgical History History of cardiac cath Hx of colonoscopy Hx of total mastectomy of right breast History of cholecystectomy History of surgery History of inguinal hernia repair History of D&C History of lumpectomy of right breast History of total abdominal hysterectomy and bilateral salpingo-oophorectomy History of arthroscopy of right knee History of carpal tunnel release History of hip replacement History of wisdom tooth extraction History of tonsillectomy Family History Father Diabetes Mother Hypertension Throat cancer Maternal Grandmother Diabetes Maternal Uncle Cancer Social History Household Members: Spouse Housing: House Do you presently have visiting nurse or other home services: No Alcohol intake: never Patient Tobacco Use Status: Never used Tobacco e-Cigarette/Vaping Use: Never Used Second Hand Smoke Exposure: No Advance Directives Date on File: 09/06/22 service: No Current occupational status: retired Current occupational exposures/hazards: No Cognitive needs: No Hearing needs: No Vision needs: Yes Review of Systems Const Denies chills, Denies fatigue, Denies fever(s), Denies frequent falls, Denies weakness, Denies weight gain and Denies weight loss ENT Denies dizziness Card Denies chest pain, Denies leg edema, Denies lightheadedness, Denies palpitations, Denies dyspnea and Denies dyspnea on exertion Resp Denies cough, Denies dyspnea and Denies dyspnea on exertion GI Denies hematochezia Musc Denies abnormal gait, Denies muscle weakness, Denies numbness, Denies radiating pain into limb and Denies tingling Neuro Denies abnormal gait, Denies dizziness, Denies frequent falls, Denies numbness, Denies tingling and Denies weakness Endo Denies fatigue and Denies palpitations Physical Exam Vital Signs: Last Vital Signs Pulse 52 01/09/24 13:31 BP 118/72 01/09/24 13:31 BMI result Body Mass Index 36.6 GENERAL APPEARANCE: in no acute distress, pleasant. NECK: no carotid bruit, no jugular venous distention. SKIN: no suspicious lesions, warm and dry. HEART: no murmurs, regular rate and rhythm. LUNGS: clear to auscultation bilaterally. ABDOMEN: soft, nontender. EXTREMITIES: no edema. PERIPHERAL PULSES: equal. NEUROLOGIC: No gross deficits, AAO X 3 Assessment & Plan Assessment & Plan (1) Hypertension: Code(s): I10 - Essential (primary) hypertension Category: Medical (2) Palpitations: Code(s): R00.2 - Palpitations Category: Medical Plan Pleasant 68-year-old female who is here for follow-up. She is denying any palpitations or chest discomfort on follow-up. Previously had cardiac catheterization which did not show any significant coronary artery disease. Blood pressure control is good. She should continue same medications for now. She will follow-up with us in 12 months. Thank you for allowing me to participate in the care of your patient. Please feel free to contact me if you have any questions. Coding Level of Care Code Est Pt Level 3 (52681) Diagnoses Hypertension I10 Palpitations R00.2
== END 2024-01-09 13:47 | disposition home or self-care (01) ==
PROVIDERS: PCP Internal Medicine; Visit Provider Internal Medicine Cardiovascular Disease
DX: I10 Essential (primary) hypertension (principal); R00.2 Palpitations
CPT/HCPCS: 99213

== ENCOUNTER → 2024-01-09 13:26 | Outpatient (BNVA) | payer MEDICARE, SELFPAY | PROVIDERS: PCP Internal Medicine; Visit Provider Internal Medicine Cardiovascular Disease | DX: I10 Essential (primary) hypertension (principal); R00.2 Palpitations | CPT/HCPCS: 99212 ==

== ENCOUNTER 2024-01-11 10:07 | Outpatient (REF) | payer MEDICARE, SELFPAY ==
[2024-01-11 10:23] LABS: MANUAL DIFF FLAG NO
[2024-01-11 10:37] LABS: Basophils Percent Auto 0.7 % (0-2); Eosinophils Absolute Auto 0.1 X10*3/uL (0.0-0.4); Eosinophils Percent Auto 2.1 % (0-4); Hematocrit 46.6 % (37.0-47.0); Hemoglobin 15.9 g/dl (12.0-16.0); Imm Gran Abs Auto 0.01 X10*3/uL (0.00-0.03); Imm Gran Pct Auto 0.2 % (0.0-0.4); Lymphocytes Absolute Auto 2.3 X10*3/uL (1.2-4.9); Lymphocytes Percent Auto 39.9 % (20-40); Mean Corpuscular HGB Conc 34.1 g/dl (31.0-35.0); Mean Corpuscular Hemoglobin 32.8 pg (27.0-33.0); Mean Corpuscular Volume 96.1 fL (80.0-98.0); Mean Platelet Volume 11.1 fL (9.4-12.3); Monocytes Absolute Auto 0.5 X10*3/uL (0.1-1.2); Monocytes Percent Auto 9.3 % (2-11); Neutrophils Absolute Auto 2.8 x10*3/uL (2.0-8.3); Neutrophils Percent Auto 47.8 % (45-73); Platelet Count 152 X10*3/uL (160-400); Red Blood Count 4.85 X10*6/uL (4.20-5.50); Red Cell Distribution Width 12.7 % (11.0-16.0); White Blood Count 5.8 X10*3/uL (4.8-10.8)
[2024-01-11 11:34] LABS: Alanine Aminotransferase 33 U/L (0-31); Albumin Level 4.2 g/dL (3.5-5.0); Alkaline Phosphatase 82 U/L (39-117); Anion Gap 10 (12-20); Aspartate Amino Transferase 34 U/L (5-31); Bilirubin Total 1.2 mg/dL (0.0-1.0); Blood Urea Nitrogen 19 mg/dL (9-16); Calcium 9.3 mg/dL (8.4-10.2); Carbon Dioxide 30 mmol/L (22-29); Chloride 105 mmol/L (96-108); Cholesterol 178 mg/dL (<200); Estimated Glomerular Filt Rate 59; Glucose Fasting 126 mg/dL (60-99); HDL Cholesterol 34 mg/dL (>40); LDL Cholesterol Calculated 99 mg/dL (<100); Potassium 4.1 mmol/L (3.3-5.1); Sodium 141 mmol/L (135-145); Total Protein 7.8 g/dL (6.5-8.0); Triglycerides 226 mg/dL (<150)
[2024-01-11 11:37] LABS: Thyroid Stimulating Hormone 3.64 uIU/mL (0.32-4.0)
== END 2024-01-11 10:08 | disposition home or self-care (01) ==
LOC: HO.LAB 10:07
PROVIDERS: PCP Internal Medicine; Visit Provider Internal Medicine
DX: D64.9 Anemia, unspecified (principal); E03.9 Hypothyroidism, unspecified; E78.5 Hyperlipidemia, unspecified; N28.9 Disorder of kidney and ureter, unspecified
CPT/HCPCS: 36415; 80053; 80061; 84443; 85025

== ENCOUNTER 2024-03-31 11:19 | Outpatient (AMB) | payer MEDICARE, SELFPAY ==
--- NOTE | 2024-03-31 11:29 | MHC.PC.OV ---
Vital Signs 03/31/24 11:30 Height 5 ft 8 in Weight 238 lb 8 oz BMI 36.3 BP 110/62 Blood Pressure Location Lt brachial Position Sitting Pulse 58 Pulse Source Pulse Oximeter Pulse Oximetry (%) 94 Oxygen Delivery Method Room Air Intake Visit Reasons: 3mof\u Intake Note: Patient is here to follow up on OA, HTN, . Stage Technician Required: No Easter Bunny: Not Required per policy Accompanied by: Self / Same As Patient Allergies lactose [LACTOSE] Allergy (Unknown, Verified 03/31/24 11:30) SEVERE DIARRHEA- CRAMPS Medication List - Last Reconciled 03/31/24 by Alberto Medel MD atenolol 100 mg PO DAILY bupropion HCl SR 200 mg PO BID cholecalciferol (vitamin D3) (Vitamin D3) 50 mcg PO DAILY lorazepam 0.5 mg PO BID-TID PRN multivitamin 1 tab PO DAILY omeprazole 20 mg PO DAILY@0630 Tobacco use date assessed: 03/31/24 Fall risk assessment: No Falls in past year Last assessed Fall Risk: 03/31/24 Dental Screening Dental Screen Date: 09/24/23 HPI 3mof\u HPI Details hypertension on rx; compliant [facility] Medical History Chest pain Anxiety History of stress incontinence Graves disease Depression Breast cancer, right Obesity Hypertension Surgical History History of cardiac cath Hx of colonoscopy Hx of total mastectomy of right breast History of cholecystectomy History of surgery History of inguinal hernia repair History of D&C History of lumpectomy of right breast History of total abdominal hysterectomy and bilateral salpingo-oophorectomy History of arthroscopy of right knee History of carpal tunnel release History of hip replacement History of wisdom tooth extraction History of tonsillectomy Family History Father Diabetes Mother Hypertension Throat cancer Maternal Grandmother Diabetes Maternal Uncle Cancer Social History Household Members: Spouse Housing: House Do you presently have visiting nurse or other home services: No Alcohol intake: never Patient Tobacco Use Status: Never used Tobacco e-Cigarette/Vaping Use: Never Used Second Hand Smoke Exposure: No Advance Directives Date on File: 09/06/22 service: No Current occupational status: retired Current occupational exposures/hazards: No Cognitive needs: No Hearing needs: No Vision needs: Yes Questionnaire Thrive Questionnaire Date Thrive assessed: 09/24/23 GOKUL-7 AMB Questionnaire GOKUL-7 Date GOKUL - 7 assessed: 09/24/23 Source: Developed by Drs. Dallas Mcleod, Agueda De La Rosa, Spencer Sahu and colleagues, with an educational jackelin from [employer]. Review of Systems Const Denies chills, Denies headache(s) and Denies weight loss ENT Denies headache(s) Card Denies chest pain, Denies syncope, Denies irregular heart rhythm and Denies dyspnea Resp Denies chest congestion, Denies cough and Denies dyspnea GI Denies abdominal pain, Denies change in stool character, Denies nausea and Denies vomiting Musc Denies deformity and Denies joint swelling Neuro Denies syncope and Denies headache(s) Physical exam (Primary Care) Vital Signs: Last Vital Signs Pulse 58 03/31/24 11:30 BP 110/62 03/31/24 11:30 Pulse Ox 94 03/31/24 11:30 Oxygen Delivery Method Room Air 03/31/24 11:30 BMI result Body Mass Index 36.3 Tobacco/Smoking Status: Tobacco use Status Tobacco use date assessed 03/31/24 03/31/24 11:34 Patient Tobacco Use Status Never used Tobacco 03/31/24 11:34 e-Cigarette/Vaping Use Never Used 03/31/24 11:34 Thrive Assessment: Date of Thrive Assessment Date Thrive assessed 09/24/23 03/31/24 11:34 Const General: cooperative, comfortable, no acute distress and alert Neck Neck: Yes no lymphadenopathy Thyroid: Thyroid normal Resp Effort & Inspection: normal respiratory effort Auscultation: clear to auscultation bilaterally Percussion: percussion normal Cardio Jugular venous distension: no JVD Palpation: normal PMI Rate: regular rate Rhythm: regular rhythm Heart sounds: S1 normal heart sound present and S2 normal heart sound present GI Inspection: Yes normal to inspection Palpation (GI): No hepatosplenomegaly present Skin General skin exam: no rashes or lesions noted Extrem General: Yes no clubbing, cyanosis or edema Assessment and Plan Assessment & Plan (1) Hypertension: Code(s): I10 - Essential (primary) hypertension Plan: stable; same rx Coding Level of Care Code Est Pt Level 3 (14250) Diagnoses Hypertension I10
[2024-03-31 11:30] VITALS: BP 110/62; PULSE 58; O2SAT 94; BMI 36.3
== END 2024-03-31 11:45 | disposition home or self-care (01) ==
PROVIDERS: PCP Internal Medicine; Visit Provider Internal Medicine
DX: I10 Essential (primary) hypertension (principal)
CPT/HCPCS: 99213

== ENCOUNTER 2024-07-04 10:56 | Outpatient (AMB) | payer MEDICARE, SELFPAY ==
--- NOTE | 2024-07-04 10:58 | MHC.PC.OV ---
Vital Signs 07/04/24 10:59 Height 5 ft 8 in Weight 239 lb 2 oz BMI 36.4 BP 132/70 Blood Pressure Location Lt brachial Position Sitting Pulse 67 Pulse Source Pulse Oximeter Pulse Oximetry (%) 97 Oxygen Delivery Method Room Air Intake Visit Reasons: 3mth f/u Intake Note: Patient is here to follow up on HTN. Pt decline flu shot today. Watershed Manager Required: No Timekeeper Supervisor: Not Required per policy Accompanied by: Self / Same As Patient Allergies lactose [LACTOSE] Allergy (Unknown, Verified 07/04/24 10:59) SEVERE DIARRHEA- CRAMPS Medication List - Last Reconciled 07/04/24 by Alberto Medel MD atenolol 100 mg PO DAILY bupropion HCl SR 200 mg PO BID cholecalciferol (vitamin D3) (Vitamin D3) 50 mcg PO DAILY lorazepam 0.5 mg PO BID-TID PRN multivitamin 1 tab PO DAILY omeprazole 20 mg PO DAILY@0630 Tobacco use date assessed: 07/04/24 Fall risk assessment: No Falls in past year Last assessed Fall Risk: 07/04/24 Dental Screening Dental Screen Date: 09/24/23 HPI 3mth f/u HPI Details hypertension on rx; doing well; compliant [facility] Medical History Chest pain Anxiety History of stress incontinence Graves disease Depression Breast cancer, right Obesity Hypertension Surgical History History of cardiac cath Hx of colonoscopy Hx of total mastectomy of right breast History of cholecystectomy History of surgery History of inguinal hernia repair History of D&C History of lumpectomy of right breast History of total abdominal hysterectomy and bilateral salpingo-oophorectomy History of arthroscopy of right knee History of carpal tunnel release History of hip replacement History of wisdom tooth extraction History of tonsillectomy Family History Father Diabetes Mother Hypertension Throat cancer Maternal Grandmother Diabetes Maternal Uncle Cancer Social History Household Members: Spouse Housing: House Do you presently have visiting nurse or other home services: No Alcohol intake: never Patient Tobacco Use Status: Never used Tobacco e-Cigarette/Vaping Use: Never Used Second Hand Smoke Exposure: No Advance Directives Date on File: 09/06/22 service: No Current occupational status: retired Current occupational exposures/hazards: No Cognitive needs: No Hearing needs: No Vision needs: Yes Questionnaire Thrive Questionnaire Date Thrive assessed: 09/24/23 GOKUL-7 AMB Questionnaire GOKUL-7 Date GOKUL - 7 assessed: 09/24/23 Source: Developed by Drs. Dallas Mcleod, Agueda De La Rosa, Spencer Sahu and colleagues, with an educational jackelin from [employer]. Review of Systems Const Denies chills, Denies headache(s) and Denies weight loss ENT Denies headache(s) Card Denies chest pain, Denies syncope, Denies irregular heart rhythm and Denies dyspnea Resp Denies chest congestion, Denies cough and Denies dyspnea GI Denies abdominal pain, Denies change in stool character, Denies nausea and Denies vomiting Musc Denies deformity and Denies joint swelling Neuro Denies syncope and Denies headache(s) Physical exam (Primary Care) Vital Signs: Last Vital Signs Pulse 67 07/04/24 10:59 BP 132/70 07/04/24 10:59 Pulse Ox 97 07/04/24 10:59 Oxygen Delivery Method Room Air 07/04/24 10:59 BMI result Body Mass Index 36.4 Tobacco/Smoking Status: Tobacco use Status Tobacco use date assessed 07/04/24 07/04/24 11:03 Patient Tobacco Use Status Never used Tobacco 07/04/24 11:03 e-Cigarette/Vaping Use Never Used 07/04/24 11:03 Thrive Assessment: Date of Thrive Assessment Date Thrive assessed 09/24/23 07/04/24 11:03 Const General: cooperative, comfortable, no acute distress and alert Neck Neck: Yes no lymphadenopathy Thyroid: Thyroid normal Resp Effort & Inspection: normal respiratory effort Auscultation: clear to auscultation bilaterally Percussion: percussion normal Cardio Jugular venous distension: no JVD Palpation: normal PMI Rate: regular rate Rhythm: regular rhythm Heart sounds: S1 normal heart sound present and S2 normal heart sound present GI Inspection: Yes normal to inspection Palpation (GI): No hepatosplenomegaly present Skin General skin exam: no rashes or lesions noted Extrem General: Yes no clubbing, cyanosis or edema Results AMB Hemoglobin A1c AMB Hemoglobin A1c 5.5 % Last Edit by DIPTI Garrett on 07/04/24 11:09 Results Reviewed Results Reviewed: Laboratory Last Values Hgb A1c (Clinic) 5.5 % (4.0-6.0) 07/04/24 10:58 Coding Level of Care Code Est Pt Level 3 (02135) Diagnoses Hypertension I10 Assessment & Plan Assessment & Plan (1) Hypertension: Code(s): I10 - Essential (primary) hypertension Category: Medical Plan: stable; same rx Orders: Orders AMB Hemoglobin A1c Today Z13.9 - Encounter for screening, unspecified
[2024-07-04 10:59] VITALS: BP 132/70; PULSE 67; O2SAT 97; BMI 36.4
== END 2024-07-04 11:34 | disposition home or self-care (01) ==
PROVIDERS: PCP Internal Medicine; Visit Provider Internal Medicine
DX: I10 Essential (primary) hypertension (principal); Z13.9 Encounter for screening, unspecified

== ENCOUNTER → 2024-07-04 10:56 | Outpatient (BNVA) | payer MEDICARE, SELFPAY | PROVIDERS: PCP Internal Medicine; Visit Provider Internal Medicine | DX: I10 Essential (primary) hypertension (principal); Z28.21 Immunization not carried out because of patient refusal | CPT/HCPCS: 83036; 99212 ==

== ENCOUNTER 2024-11-04 11:18 | Outpatient (AMB) | payer MEDICARE, SELFPAY ==
[2024-11-04 11:24] VITALS: BP 138/72; PULSE 75; O2SAT 96; BMI 36.6
--- NOTE | 2024-11-04 11:24 | A.OFFPC_ITS ---
Vital Signs 11/04/24 11:24 Height 5 ft 8 in Weight 241 lb BMI 36.6 BP 138/72 Blood Pressure Location Lt brachial Position Sitting Pulse 75 Pulse Source Pulse Oximeter Pulse Oximetry (%) 96 Oxygen Delivery Method Room Air Intake Visit Reasons: 4 month f/u Allergies lactose [LACTOSE] Allergy (Unknown, Verified 11/04/24 11:24) SEVERE DIARRHEA- CRAMPS Medication List - Last Reconciled 11/04/24 by Alberto Medel MD atenolol 100 mg PO DAILY bupropion HCl SR 200 mg PO BID cholecalciferol (vitamin D3) (Vitamin D3) 50 mcg PO DAILY lorazepam 0.5 mg PO BID-TID PRN multivitamin 1 tab PO DAILY omeprazole 20 mg PO DAILY@0630 Tobacco use date assessed: 11/04/24 Fall risk assessment: No Falls in past year Last assessed Fall Risk: 11/04/24 Dental Screening Dental Screen Date: 11/04/24 Did you have a dental visit in the last 12 months?: Yes Did you have a dental problem in the last 6 months where you did not have access to dental care?: No Was dental information given to patient?: Patient has dentist HPI 4 month f/u HPI Details hypertension on rx; doing well; compliant [facility] Medical History Chest pain Anxiety History of stress incontinence Graves disease Depression Breast cancer, right Obesity Hypertension Surgical History History of cardiac cath Hx of colonoscopy Hx of total mastectomy of right breast History of cholecystectomy History of surgery History of inguinal hernia repair History of D&C History of lumpectomy of right breast History of total abdominal hysterectomy and bilateral salpingo-oophorectomy History of arthroscopy of right knee History of carpal tunnel release History of hip replacement History of wisdom tooth extraction History of tonsillectomy Family History Father Diabetes Mother Hypertension Throat cancer Maternal Grandmother Diabetes Maternal Uncle Cancer Social History Household Members: Spouse Housing: House Do you presently have visiting nurse or other home services: No Alcohol intake: never Patient Tobacco Use Status: Never used Tobacco Tobacco use type: Cigarette e-Cigarette/Vaping Use: Never Used Second Hand Smoke Exposure: No Advance Directives Date on File: 09/06/22 service: No Current occupational status: retired Current occupational exposures/hazards: No Cognitive needs: No Hearing needs: No Vision needs: Yes Questionnaire PHQ-9 Over the last 2 weeks, how often have you been bothered by any of the following problems? 1. Little interest or pleasure in doing things: not at all 2. Feeling down, depressed, or hopeless: not at all 3. Trouble falling or staying asleep, or sleeping too much: not at all 4. Feeling tired or having little energy: not at all 5. Poor appetite or overeating: not at all 6. Feeling bad about yourself - or that you are a failure or have let yourself or your family down: not at all 7. Trouble concentrating on things, such as reading the newspaper or watching television: not at all 8. Moving or speaking so slowly that other people could have noticed. Or the opposite - being so fidgety or restless that you have been moving around a lot more than usual: not at all 9. Thoughts that you would be better off or of hurting yourself in some way: not at all Total score: 0 Depression Screening Interpretation: Negative Depression Screening Done: Yes 14284 - PHQ-9 Billing: Yes Source: Developed by Drs. Dallas Mcleod, Agueda De La Rosa, Spencer Sahu and colleagues, with an educational jackelin from [employer]. Thrive Questionnaire Date Thrive assessed: 11/04/24 I am a: Patient What is your living situation today?: I have a steady place to live Within the past 12 months, did the food you bought not last and you didn't have the money to get more?: Never true Within the past 12 months, did you worry whether your food would run out before you got money to buy more?: Never true Do you have trouble paying for medicines?: No Do you have trouble getting transportation to medical appointments?: No Do you have trouble paying your heating and electricity bill?: No Do you have trouble taking care of your child, family member or friend?: No Do you have trouble with day-to-day activities such as bathing, preparing meals, shopping, managing finances, etc.?: No Are you currently unemployed and looking for a job?: No Are you interested in more education?: No Currently or been in a relationship where the following occur: No concerns reported THRIVE Score: 0 AUDIT C Alcohol Use Questionnaire (AUDIT-C) 1. How often do you have a drink containing alcohol?: Never Total Score: 0 Score Reviewed/Action Taken: Yes GOKUL-7 AMB Questionnaire GOKUL-7 Date GOKUL - 7 assessed: 11/04/24 Feeling nervous, anxious, or on edge: 0 = Not at all Not being able to stop or control worryin = Not at all Worrying too much about different things: 0 = Not at all Trouble relaxin = Not at all Being so restless that it is hard to sit still: 0 = Not at all Becoming easily annoyed or irritable: 0 = Not at all Feeling afraid as if something awful might happen: 0 = Not at all Total GOKUL-7 score (0-4 normal; 5-9 mild; 10-14 moderate; 15-21 severe): 0 Source: Developed by Drs. Dallas Mcleod, Agueda De La Rosa, Spencer Sahu and colleagues, with an educational jackelin from [employer]. Review of Systems Const Denies chills, Denies headache(s) and Denies weight loss ENT Denies headache(s) Card Denies chest pain, Denies syncope, Denies irregular heart rhythm and Denies dyspnea Resp Denies chest congestion, Denies cough and Denies dyspnea GI Denies abdominal pain, Denies change in stool character, Denies nausea and Denies vomiting Musc Denies deformity and Denies joint swelling Neuro Denies syncope and Denies headache(s) Physical exam (Primary Care) Vital Signs: Last Vital Signs Pulse 75 11/04/24 11:24 BP 138/72 11/04/24 11:24 Pulse Ox 96 11/04/24 11:24 Oxygen Delivery Method Room Air 11/04/24 11:24 BMI result Body Mass Index 36.6 Tobacco/Smoking Status: Tobacco use Status Tobacco use date assessed 11/04/24 11/04/24 11:30 Patient Tobacco Use Status Never used Tobacco 11/04/24 11:30 Tobacco use type Cigarette 11/04/24 11:30 e-Cigarette/Vaping Use Never Used 11/04/24 11:30 PHQ-9: PHQ-9 Score PHQ-9: Total score 0 11/04/24 11:30 Depression Screening Interpretation: Negative Thrive Assessment: Date of Thrive Assessment Date Thrive assessed 11/04/24 11/04/24 11:30 Currently or been in a relationship where the following occur: No concerns reported Const General: cooperative, comfortable, no acute distress and alert Neck Neck: Yes no lymphadenopathy Thyroid: Thyroid normal Resp Effort & Inspection: normal respiratory effort Auscultation: clear to auscultation bilaterally Percussion: percussion normal Cardio Jugular venous distension: no JVD Palpation: normal PMI Rate: regular rate Rhythm: regular rhythm Heart sounds: S1 normal heart sound present and S2 normal heart sound present GI Inspection: Yes normal to inspection Palpation (GI): No hepatosplenomegaly present Skin General skin exam: no rashes or lesions noted Extrem General: Yes no clubbing, cyanosis or edema Coding Level of Care Code Est Pt Level 3 (92528) Diagnoses Hypertension I10 Additional Codes PHQ-9 - 15807 - PHQ-9 Billing: Yes ([id number]) Assessment & Plan Assessment & Plan (1) Hypertension: Code(s): I10 - Essential (primary) hypertension Category: Medical Plan: stable; same rx
--- OUTSIDE RECORDS SUMMARY | 2024-11-04 12:33 | XMS_ITS | Patient Health Record ---
Author Organization [facility] [place] Address [address] [place] [address] Care Team Providers Care Mushroom Spawn Maker Name Role Phone Alberto Medel MD Primary Care Provider Jonny Marhkam Unavailable [phone] Allergies No Known Allergies Reason For Referral No Information Medications Medication SIG (Take, Route, Frequency, Duration) Notes Start Date End Date Status Cephalexin 500 MG 1 capsule Orally phil ry 6 hrs for 5 day(s) Active buPROPion HCl ER (SR) 200 MG TAKE 1 TABLET BY MOUTH TWICE A DAY Oral for 90 Active LORazepam 0.5 MG (Schedule IV Drug) T [place] 1 TABLET BY MOUTH ONCE A DAY NEEDED FOR ANXIETY Oral for 30 Active Multivitamin - 1 tablet Orally Once a day for 30 day(s) Active Omeprazole 20 MG TAKE 1 CAPSULE ONCE A DAY ORALLY 30 DAY(S) Oral for 30 Active Vitamin D3 2000 UNIT 1 capsule Orally On 07/19/2016 Active Physical Therapy . . . 2-3x/week for 3- 4 weeks 11/18/2021 Active ASO-AFO L1902 as directed 08/16/2016 Not -Taking ASO Ankle/Foot Stablizing AFO As directed Wear Daily for as needed 08/16/2016 Not-Taking Atenolol 100 MG 1 TABLET ONCE A DAY ORALLY 30 DAYS Oral for 30 Active Immunizations Vaccine Route Administration Date Status Comme nts COVID-19 Moderna Vaccine Unknown 10/30/2020 Administered COVID-19 Moderna Vaccine Unknown 08/01/2021 Administered 1st 10/30/2020 2nd 11/27/2020 Social History Tobacco Use: Social History Observation Description Date Details (start date - stop date) Never Smoker NA - NA Tobacco Use/Smoking Question Answer Notes Are you a: nonsmoker Additional Findings: Tobacco Non-User Aggressive non-smoker Alcohol Screen Question Answer Notes Did you have a drink containing alcohol in the p ast year? No Points 0 Interpretation Negative Tobacco use other than smoking: Question Answer Notes Are you an other tobacco user? 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 Subungual Hematoma 6 X ray : Ankle, right 3V 11/18/2021 Insurance Providers Payer Name Payer Address Payer Phone Subscriber Number Group Number Insured Name Patient Relationship to Insured Coverage Start Date Coverage End Date Medicare National [employer] [address] [facility] [address] [id number] Vangie Whalen Self - patient is the insured Med [facility] [address] [place] [address] [phone] [id number] Vangie Whalen Self - patient is the insured Medical (General) History Medical History History ICD Code Anxiety Arthritis Back,Hip,and Knee pain Cancer, breast Depression High blood pressure Menieres disease Reflux chronic sinusitis Joint implants/screws Anemia Surgical History Surgery Date(Month/Year) lumpectomy 2000 mastectomy 2010 hysterectomy 2002 left knee replacement 2013 hip replacement 2017 bladder surgery 04/2013
--- OUTSIDE RECORDS SUMMARY | 2024-11-04 12:34 | XMS_ITS ---
Author Organization [facility] Address [address] [facility] [place] [address] Care Team Providers Care Cable Splicer Apprentice Name Role Phone Alberto Medel MD Primary Care Provider Jonny Markham [phone] REASON FOR VISIT Cx 01/17/24 appt Encounters Encounter [facility] [address] [address] [facility] Jonny Colon Plan Of Treatment No Information Progress Notes * Vangie RODDOB: (68 yo F)Acc No.[id number]:01/02/2024 Patient:?Vangie Rod :1955???Age:68 Y???Sex:Female Address:[address] [place] [phone] * true * Date:? Generated for Melissai adam/Donovan/eTransmitting on:?11/04/2024 12:34 PM EST
--- OUTSIDE RECORDS SUMMARY | 2024-11-04 12:34 | XMS_ITS ---
Author Organization [facility] Address [address] [place] [address] Care Team Providers Care Machine Precision Etcher Name Role Phone Lizy NOVAK, Alberto Primary Care Provider Jonny Markham Unavailable [phone] Encounters Encounter [facility] [address] [place] [phone] 01/17/2024 Jonny Colon Plan Of Treatment No Information Progress Notes * Vangie ORDDOB: (69 yo F)Acc No.[id number]:01/17/2024 Progress Note Patient:Vangie SORIANO Provider:?Jonny Colon DPM :1955???Age:68 Y???Sex:Female D ate:01/17/2024 Address:[address] [place], [place] [phone] Pcp:Alberto Medel MD Subjective: * Chief Complaints: * ??? * Medical History:? Objective: * Vitals:? Assessment: Plan: * Treatment: * Images: * The named appointment provid er may or may not be the originator of this progress note, and it is not deemed complete until electronically signed by the appointment provider. Sign off status: Pending * Provider:?Jonny Colon DPM Date:?2023 Generated for Amado medina/Donovan/eTransmitting on:?11/04/2024 12:33 PM EST
== END 2024-11-04 11:46 | disposition home or self-care (01) ==
PROVIDERS: PCP Internal Medicine; Visit Provider Internal Medicine
DX: I10 Essential (primary) hypertension (principal)

== ENCOUNTER → 2024-11-04 11:18 | Outpatient (BNVA) | payer MEDICARE, SELFPAY | PROVIDERS: PCP Internal Medicine; Visit Provider Internal Medicine | DX: I10 Essential (primary) hypertension (principal) | CPT/HCPCS: 96127; 99212 ==

== ENCOUNTER 2024-12-18 12:48 | Outpatient (AMB) | payer MEDICARE, SELFPAY ==
--- NOTE | 2024-12-18 12:18 | MHC.OFFVIS ---
Intake Visit Reasons: 1y follow up Intake Note: Patient is present for a 1 year follow up Urology Medication: None Antibiotic Allergies: None Blood Thinners:None PVR: 0ml Allergies lactose [LACTOSE] Allergy (Unknown, Verified 12/18/24 13:04) SEVERE DIARRHEA- CRAMPS Medication List - Last Reconciled 12/18/24 by Sean Puri MD atenolol 100 mg PO DAILY bupropion HCl SR 200 mg PO BID cholecalciferol (vitamin D3) (Vitamin D3) 50 mcg PO DAILY lorazepam 0.5 mg PO BID-TID PRN multivitamin 1 tab PO DAILY nitrofurantoin monohyd/m-cryst 100 mg (Macrobid) 100 mg orally use as directed after sexual intimacy; must administer with a meal/food omeprazole 20 mg PO DAILY@0630 HPI Comments Details: 12/18/24--Vangie is a 67-year-old female who presents to the clinic for OAB follow-up. She has the InterStim in place, and states she is voiding well. History of Present Illness The patient is a 69-year-old female presenting with follow-up concerns regarding her overactive bladder and stress urinary incontinence. She has been managing overactive bladder symptoms with an InterStim device since 2002, which has successfully aided her in reducing urinary retention. Recently, she experienced an upper respiratory tract infection between October and November, causing a persistent cough that inadvertently augmented her stress urinary incontinence. This has led to urinary leakage during coughing episodes, although she reports normal urinary function otherwise. Previous urinary analyses revealed trace hematuria with no urinary tract infections, and her bladder empties efficiently. Her episodes of urinary leakage primarily accompany coughing fits, prompting her to use incontinence pads during social engagements as a precaution. Her familial propensity for urinary incontinence, as noted in her sister, suggests commonalities in their symptomatology, though the patient's incontinence is comparatively mild and well-managed at home. Urinary Symptoms Review - Uses an InterStim device for overactive bladder, successful in symptom management. - Experiences stress urinary incontinence during coughing fits. - Reports trace hematuria without apparent infection. - Manages leakage during social events with incontinence pads. - Nocturnal and daily continence otherwise unaffected. - No discomfort or painful voiding reported. - Handles minimal urinary leakage due to limited social outings. Results - Urine analysis: Trace hematuria, no infection present. Discussion Notes During our discussion, I outlined the importance of managing both overactive bladder and stress urinary incontinence. We reviewed the InterStim device's performance, which the patient confirmed remains effective in managing her symptoms. I addressed the role of recent coughing from an upper respiratory tract infection in exacerbating her stress urinary incontinence. I recommended Kegel exercises to strengthen pelvic muscles, explaining their role in reducing stress incontinence by enhancing pelvic floor strength. Follow-up will be set for the next year, but the patient should report any significant symptom changes in the interim. A prescription renewal was confirmed, and pharmacy coordination was completed during the visit. 12/21/2023-- Vangie is a 67-year-old female who presents to the clinic for OAB follow-up. She has the InterStim in place, and states she is voiding well. She checks the battery periodically. She states that she had a UTI several weeks ago she called the office on and left a urine culture but results did not come back until Sunday or Sunday the following week and she was in pain over the weekend. She states in the past she had used an antibiotic after intercourse which helped prevent UTIs. She states that her has new onset dementia. Plan discussed will start Macrobid 100 mg post sexual activity, she will call this office and [facility] for any issues. with the InterStim. Follow-up in 1 year. 12/22/2022--The patient was last seen by Dr. gamboa on 01/16/22 for ambulatory procedure for insertion of new InterStim battery/pacemaker and the lead was placed on the right S3 foramen. The patient had her first InterStim insertion in 2002. States improvement in condition after InterStim change on 01/16/22. Evaluation today: Blood: 2+, leukocytes: 1+, nitrite: Positive. Microscopic examination: +bacteuria I attempted to check interstim parameters but her external monitor battery was not charged. On exam: Pacemaker palpated right upper buttock. Plan: Urine for culture was ordered. Patient was advised to charge the battery a night before the next visit and will check the program and amplitude of the InterStim. Nurse visit follow-up after 2 months for urinalysis. Bactrim DS BID for 10 days was ordered. Follow-up after one year for InterStim. 12/21/2023 -- Plan discussed will start Macrobid 100 mg post sexual activity, she will call this office and [facility] for any issues. with the InterStim. Follow-up in 1 year. ON LICENSE OF [facility] Medical History Chest pain Anxiety History of stress incontinence Graves disease Depression Breast cancer, right Obesity Hypertension Surgical History History of cardiac cath Hx of colonoscopy Hx of total mastectomy of right breast History of cholecystectomy History of surgery History of inguinal hernia repair History of D&C History of lumpectomy of right breast History of total abdominal hysterectomy and bilateral salpingo-oophorectomy History of arthroscopy of right knee History of carpal tunnel release History of hip replacement History of wisdom tooth extraction History of tonsillectomy Family History Father Diabetes Mother Hypertension Throat cancer Maternal Grandmother Diabetes Maternal Uncle Cancer Social History Household Members: Spouse Housing: House Do you presently have visiting nurse or other home services: No Alcohol intake: never Patient Tobacco Use Status: Never used Tobacco Tobacco use type: Cigarette e-Cigarette/Vaping Use: Never Used Second Hand Smoke Exposure: No Advance Directives Date on File: 09/06/22 service: No Current occupational status: retired Current occupational exposures/hazards: No Cognitive needs: No Hearing needs: No Vision needs: Yes Review of Systems Const All systems reviewed & are unremarkable except as noted in HPI and below Reports no additional complaints Eyes Reports no additional complaints ENT Reports no additional complaints Card Reports no additional complaints Resp Reports no additional complaints GI Reports no additional complaints Reports as per HPI Musc Reports no additional complaints Skin/Breast Reports system reviewed and no additional complaints, except as documented Neuro Reports no additional complaints Psych Reports no additional complaints Endo Reports no additional complaints Hernan/Lymph Reports no additional complaints Aller/Immun Reports no additional complaints Assessment & Plan Assessment & Plan Plan Plan For management of overactive bladder, the patient's current treatment via InterStim device remains effective, as evidenced by unchanged efficacy and absence of retention complications. Stress urinary incontinence, worsened by recent chronic cough due to resolved respiratory infection, is addressed with recommended pelvic floor exercises to strengthen muscle control. Prescription renewals were carried out during this appointment, facilitating management of symptoms and medication adherence amid caregiving at home. Follow-up is planned within the ensuing year unless symptoms necessitate earlier review. Patient Instructions - Continue using the InterStim device as per usual routine. - Engage in Kegel exercises twice daily, preferably during TV commercials. - Use incontinence pads as needed during events or when leaving home. - Notify our office should the urinary symptoms change significantly. - remote encoding operations supervisor prescribed medications from the pharmacy. - Return for follow-up next year or sooner if problems arise. Medications: Refilled nitrofurantoin monohyd/m-cryst 100 mg (Macrobid) 100 mg orally use as directed after sexual intimacy; must administer with a meal/food 30 caps 5RF Patient Instructions: The patient had an opportunity to ask questions regarding treatment plan. The patient expressed understanding and agreement with the above treatment plan. The patient is aware they should contact our office by phone for worsening of their current condition or the appearance of new symptoms. Compliance is encouraged with any medications and followup testing that is ordered. It is a privilege to be allowed the opportunity to participate in the urologic care of your patient. If you have any questions or concerns regarding treatment for the above conditions please do not hesitate to contact me. The office telephone contact is [phone]. This note is constructed in part using voice recognition software. While every effort has been made to ensure accuracy lumber tripper errors may have been included. Yours sincerely, Sean Puri MD Scribe Plan - Not visible on output: Patient was informed and verbally consented to the use of an ambient scribe for clinic note documentation during this visit. Coding
--- OUTSIDE RECORDS SUMMARY | 2024-12-18 13:52 | XMS_ITS ---
Author Organization [facility] Address [address] [place] [phone] Care Team Providers Care Internet Designer Name Role Phone Lizy NOVAK, Alberto Primary Care Provider UnavailJonny Woods Unavailable [phone] Encounters Encounter Location Date Provider Diagnosis [address] [address] 01/17/2024 Jonny Colon Plan Of Treatment Next Appt Details Provider Name:Jonny Colon , 02/10/2025 01:00:00 PM, [address] [place], [address], Progress Notes * CHARMAINEGiovanna ChanbereDOB: (69 yo F)Acc No.[id number]:01/17/2024 Progress Note Patient:?Vangie ROD Provider:?Jonny Colon DPM :1955???Age:68 Y???Sex:Female D ate:01/17/2024 Address:[address] [place] [phone] Pcp:Alberto Medel MD Subjective: * Chief Complaints: * ??? * Medical History:? Objective: * Vitals:? Assessment: Plan: * Treatment: * Images: * The named appointment provid er may or may not be the originator of this progress note, and it is not deemed complete until electronically signed by the appointment provider. Sign off status: Pending * Provider:?Jonny Colon DPM Date:?2023 Generated for Amado medina/Donovan/Katerina on:?12/18/2024 01:52 PM EDT
--- OUTSIDE RECORDS SUMMARY | 2024-12-18 13:52 | XMS_ITS ---
Author Organization [facility] Address [address] [place] [address] Care Team Providers Care Industrial Services Worker Name Role Phone Alberto Medel MD Primary Care Provider Jonny Markham [phone] REASON FOR VISIT Cx 01/17/24 appt Encounters Encounter Location Date [facility] [address] [address] 01/02/2024 Jonny Colon Plan Of Treatment Next Appt Details Provider Name:Jonny Colon , 02/10/2025 01:00:00 PM, [address] [place] [address], [phone], Progress Notes * Vangie RODDOB: (68 yo F)Acc No.[id number]:01/02/2024 Patient:?MaddisonGiovanna camaraVangie :1955???Age:68 Y???Sex:Female Address:[address] [place] [address] * true * Date:? Generated for Printi ng/Fajose luisg/eTransmitting on:?12/18/2024 01:52 PM EDT
--- OUTSIDE RECORDS SUMMARY | 2024-12-18 13:52 | XMS_ITS | Patient Health Record ---
Author Organization [facility] Address [address] [facility] [place] [address] Care Team Providers Care Fuel Technician Name Role Phone Alberto Medel MD Primary Care Provider Jonny Markham Unavailable [phone] Allergies No Known Allergies Reason For Referral [...] Problem Status W/U Status Risk Notes Problem [id number] Osteoarthritis o f right ankle and foot (M19.071) Active confirmed Encounters Encounter Location Date Provider Diagnosis [facility] [place] [address] [place] [phone] 01/02/2024 Jonny Colon Plan Of Treatment Pending Test Test Name Order Date 14137- Debride <25 sq cm 04/27/2021 66595 I&D ABSCESS- SIMPLE,SINGLE 021 04871 I&D ABSCESS- SIMPLE,SINGLE 022 30878-Ddrc. Subungual Hematoma 6 X ray : Ankle, right 3V 11/18/2021 Next Appt Details Provider Name:Jonny Colon , 02/10/2025 01:00:00 PM, [address] [place] [address], [place], [phone], Insurance Providers Payer Name Payer Address Payer Phone Subscriber Number Group Number Insured Name Patient Relationship to Insured Coverage Start Date Coverage End Date Medicare National Govt Sv[employer] [address] [place] [address] [id number] Vangie Whalen Self - patient is the insured [employer] [address] [place] [address] [id number] Vangie Whalen Self - patient is the insured Medical (General) History Medical History History ICD Code Anxiety Arthritis Back,Hip,and Knee pain Cancer, breast Depression High blood pressure Menieres disease Reflux chronic sinusitis Joint implants/screws Anemia Surgical History Surgery Date(Month/Year) lumpectomy 2000 mastectomy 2010 hysterectomy 2002 left knee replacement 2013 hip replacement 2017 bladder surgery 04/2013
== END 2024-12-18 13:27 | disposition home or self-care (01) ==
LOC: HO.HUSH 12:48
PROVIDERS: PCP Internal Medicine; Visit Provider Urology
DX: Z13.9 Encounter for screening, unspecified (principal)

== ENCOUNTER → 2024-12-18 12:48 | Outpatient (BNVA) | payer MEDICARE, SELFPAY | PROVIDERS: PCP Internal Medicine; Visit Provider Urology | DX: N32.81 Overactive bladder (principal); N39.3 Stress incontinence (female) (male); R35.1 Nocturia; R31.9 Hematuria, unspecified; Z87.440 Personal history of urinary (tract) infections | CPT/HCPCS: 81003; 99212 ==

== ENCOUNTER 2025-02-03 11:20 | Outpatient (AMB) | payer MEDICARE, SELFPAY ==
--- NOTE | 2025-02-03 11:21 | MHC.PC.OV ---
Vital Signs 02/03/25 11:22 Height 5 ft 8 in Weight 240 lb 2 oz BMI 36.5 BP 130/68 Blood Pressure Location Lt brachial Position Sitting Pulse 61 Pulse Source Pulse Oximeter Temp 97.1 F Temp Source Temporal Artery Scan Pulse Oximetry (%) 95 Oxygen Delivery Method Room Air Intake Visit Reasons: Transfer from [facility] 3 month f/u BP Intake Note: Patient is here today for SAL from Dr Medel and BP check Keyseater Operator Required: No Fine Arts Chair: Not Required per policy Accompanied by: Self / Same As Patient Allergies lactose [LACTOSE] Allergy (Unknown, Verified 02/03/25 11:52) SEVERE DIARRHEA- CRAMPS Medication List - Last Reconciled 02/03/25 by Sylvia Metzger PA-C atenolol 100 mg PO DAILY bupropion HCl SR 200 mg PO BID cholecalciferol (vitamin D3) (Vitamin D3) 50 mcg PO DAILY lorazepam 0.5 mg PO BID-TID PRN multivitamin 1 tab PO DAILY omeprazole 20 mg PO DAILY@0630 Tobacco use date assessed: 02/03/25 Fall risk assessment: No Falls in past year Last assessed Fall Risk: 02/03/25 Dental Screening Dental Screen Date: 11/04/24 HPI Transfer from [facility] 3 month f/u BP HPI Details 69-year-old female with past medical history of overactive bladder, hypertension last seen 10/[address] Medel coming in for transfer of care. In review of the notes, patient was seen by Urology 12/2024 for yearly visit patient currently using InterStim device which has been successful recommending Kegel exercises and continue on current medications. Patient is overdue for her annual cardiology appointment. Presenting for management of chronic conditions. She experiences urinary retention attributed to neurogenic bladder, which is managed by a stimulator implant. Initially implanted in 2002, a replacement was conducted in January 2023 for improved function, now effectively regulating urinary function. Depression is treated with bupropion, and lorazepam is utilized to control anxiety exacerbated by COVID-19, primarily aiding in sleep management. The patient has a breast cancer history with occurrences in 1999 and 2009 requiring lumpectomy and mastectomy with implant insertion, respectively. Annual mammograms conducted. [facility] Medical History (Updated 02/03/25 @ 12:11 by Sylvia Metzegr PA-C) Chest pain Anxiety History of stress incontinence Graves disease Depression Breast cancer, right Obesity Hypertension Surgical History (Updated 02/03/25 @ 12:07 by Sylvia Metzger PA-C) History of cardiac cath Hx of colonoscopy Hx of total mastectomy of right breast History of cholecystectomy History of surgery History of inguinal hernia repair History of D&C History of lumpectomy of right breast History of total abdominal hysterectomy and bilateral salpingo-oophorectomy History of arthroscopy of right knee History of carpal tunnel release History of hip replacement History of wisdom tooth extraction History of tonsillectomy Family History Father Diabetes Mother Hypertension Throat cancer Maternal Grandmother Diabetes Maternal Uncle Cancer Social History Household Members: Spouse Housing: House Do you presently have visiting nurse or other home services: No Alcohol intake: never Patient Tobacco Use Status: Never used Tobacco Tobacco use type: Cigarette e-Cigarette/Vaping Use: Never Used Second Hand Smoke Exposure: No Advance Directives Date on File: 09/06/22 service: No Current occupational status: retired Current occupational exposures/hazards: No Cognitive needs: No Hearing needs: No Vision needs: Yes Questionnaire Thrive Questionnaire Date Thrive assessed: 11/04/24 GOKUL-7 AMB Questionnaire GOKUL-7 Date GOKUL - 7 assessed: 11/04/24 Source: Developed by Drs. Dallas Mcleod, Agueda De La Rosa, Spencer Sahu and colleagues, with an educational jackelin from [employer]. Review of Systems Const Denies body aches, Denies chills, Denies fever(s) and Denies poor appetite Eyes Reports no additional complaints ENT Denies dizziness Card Denies chest pain and Denies dyspnea Resp Denies cough and Denies dyspnea GI Denies abdominal pain, Denies nausea and Denies vomiting Reports no additional complaints Musc Reports no additional complaints and Denies abnormal gait Skin/Breast Reports system reviewed and no additional complaints, except as documented Neuro Denies abnormal gait and Denies dizziness Psych Reports no additional complaints Physical exam (Primary Care) Vital Signs: Last Vital Signs Temp 97.1 F 02/03/25 11:22 Pulse 61 02/03/25 11:22 BP 130/68 02/03/25 11:22 Pulse Ox 95 02/03/25 11:22 Oxygen Delivery Method Room Air 02/03/25 11:22 BMI result Body Mass Index 36.5 Tobacco/Smoking Status: Tobacco use Status Tobacco use date assessed 02/03/25 02/03/25 11:39 Patient Tobacco Use Status Never used Tobacco 02/03/25 11:39 Tobacco use type Cigarette 02/03/25 11:39 e-Cigarette/Vaping Use Never Used 02/03/25 11:39 Thrive Assessment: Date of Thrive Assessment Date Thrive assessed 11/04/24 02/03/25 11:39 Const General: cooperative, healthy appearing, comfortable and no acute distress Orientation/consciousness: patient oriented x3 HENMT Head: Yes normocephalic Ears: hearing grossly normal bilaterally General nose exam: Normal external nose present Eyes General: appearance normal, both eyes and all related structures Conjunctivae: conjunctivae normal Neck Neck: Yes full ROM and Yes no lymphadenopathy Resp Effort & Inspection: normal respiratory effort Auscultation: clear to auscultation bilaterally, no crackles, no rales, no rhonchi and no wheezes Cardio Rate: regular rate Rhythm: regular rhythm Skin General skin exam: no rashes or lesions noted Neuro General: patient oriented x3 Gait exam (Neuro): Normal gait present Extrem General: Yes normal to inspection, Yes full ROM and No edema Psych Affect: normal affect Attitude: cooperative Insight: Good insight present (Psych) Judgement: Good judgement present (Psych) Coding Level of Care Code Est Pt Level 4 (43212) Diagnoses Overactive bladder N32.81 Hypertension I10 Anxiety F41.9 Depression F32.A History of breast cancer Z85.3 Screening for hypercholesterolemia Z13.220 Assessment & Plan Assessment & Plan (1) Overactive bladder: Comment: InterStim placement 2002 battery exchange 2012 Code(s): N32.81 - Overactive bladder Category: Medical Plan: Currently following with urology and has interstim in place and feels this is beneficial. Continue to follow with Urology. (2) Hypertension: Code(s): I10 - Essential (primary) hypertension Category: Medical Plan: Continue on current blood pressure medication. Avoid salt intake and encourage healthy diet and regular exercise. (3) Anxiety: Code(s): F41.9 - Anxiety disorder, unspecified Category: Medical Plan: She is currently utilizing Lorazepam almost nightly for symptoms of anxiety which is primarily at night and in social situations. She is currently following with a counselor and finds this beneficial. I did discuss with the patient Lorazepam is not ideal for daily anxiety management and discussed dangers of abruptly d/c this medication. Plan to discuss alternatives going forward. (4) Depression: Comment: Counselor weekly 01/2025 Code(s): F32.A - Depression, unspecified Category: Medical Plan: Patient feels good on her current medications and does not want adjustments. Follows with counselor weekly. (5) History of breast cancer: Comment: 1999 s/p lumpectomy and radiation 2009 mastectomy w/ implant Code(s): Z85.3 - Personal history of malignant neoplasm of breast Category: Medical Plan: Patient follows with [facility] for yearly mammograms and breast exams. (6) Screening for hypercholesterolemia: Code(s): Z13.220 - Encounter for screening for lipoid disorders Category: Medical Plan: blood work ordered today Plan This note was constructed using voice recognition software. While every effort has been made to ensure accuracy and hand screen printer, still areas may have been included sometimes these areas may affect the content or meeting of the given symptoms. Total time spent caring for the patient today was 30 minutes. This includes time spent before the visit reviewing the chart, time spent during the visit, and time spent after the visit and documentation. Patient was informed and verbally consented to the use of an ambient scribe for clinic note documentation during this visit. Orders: Orders Complete Blood Count Auto Diff Today I10 - Essential (primary) hypertension, Z00.00 - Encounter for general adult medical examination without abnormal findings TSH reflex Free T4 Today I10 - Essential (primary) hypertension, Z00.00 - Encounter for general adult medical examination without abnormal findings Hemoglobin A1c Today I10 - Essential (primary) hypertension, Z13.1 - Encounter for screening for diabetes mellitus Comprehensive Met. Panel Today I10 - Essential (primary) hypertension, Z00.00 - Encounter for general adult medical examination without abnormal findings Free T4 (Free Thyroxine) Today I10 - Essential (primary) hypertension, Z00.00 - Encounter for general adult medical examination without abnormal findings Vitamin B12 and Folate Today I10 - Essential (primary) hypertension, Z00.00 - Encounter for general adult medical examination without abnormal findings Vitamin D 25-OH Total Today I10 - Essential (primary) hypertension, Z00.00 - Encounter for general adult medical examination without abnormal findings Lipid Panel Today Z13.220 - Encounter for screening for lipoid disorders
[2025-02-03 11:22] VITALS: BP 130/68; PULSE 61; TEMP 36.2; O2SAT 95; BMI 36.5
--- OUTSIDE RECORDS SUMMARY | 2025-02-03 12:38 | XMS_ITS ---
Author Organization [facility] Address [address] [place] [address] Care Team Providers Care Social Services Coordinator Name Role Phone Lizy NOVAK, Alberto Primary Care Provider UnavailRosanne Gayle Unavailable [phone] Jonny Colon [phone] Encounters En[facility] Date [facility] [address] [facility]/17[facility] Jonny Colon Plan Of Treatment Next Appt Details Provider Name:Rosanne marinelli, 04/01/2025 01:00:00 PM, [address] [place] [address], [phone], Progress Notes * Vangie RODDOB: (69 yo F)Acc No.[id number]:01/17/2024 Progress Note Patient:?ILEANAREBEKAGiovanna ChanVangie Provider:?Jonny Colon DPM :1955???Age:68 Y???Sex:Female D ate:01/17/2024 Address:[address] [place] [phone] Pcp:Alberto Medel MD Subjective: * Chief Complaints: * ??? * Medical History:? Objective: * Vitals:? Assessment: Plan: * Treatment: * Images: * The named appointment provid er may or may not be the originator of this progress note, and it is not deemed complete until electronically signed by the appointment provider. Sign off status: Pending * Provider:Kanu Colon DPM Date:?2023 Generated for Amado medina/Donovan/Katerina on:?02/03/2025 12:38 PM EDT
--- OUTSIDE RECORDS SUMMARY | 2025-02-03 12:38 | XMS_ITS ---
Author Organization [facility] Address [address] [place] [address] Care Team Providers Care Gis Coordinator Name Role Phone Lizy NOVAK, Alberto Primary Care Provider Rosanne Payne Unavailable [phone] Jonny Colon Unavailable [phone] REASON FOR VISIT Cx 01/17/24 appt Encounters En[facility] [address] [facility] Jonny Colon Plan Of Treatment Next Appt Details Provider Name:Rosanne marinelli, 04/01/2025 01:00:00 PM, [address] [place], [address], Progress Notes * Vangie RODDOB: (68 yo F)Acc No.[id number]:01/02/2024 Patient:?MarcellolorenVangie camara :1955???Age:68 Y???Sex:Female Address:[address] [facility], [place] [address] * true * Date:? Generated for Printi adam/Fajose luisg/eTransmitting on:?02/03/2025 12:38 PM EDT
--- OUTSIDE RECORDS SUMMARY | 2025-02-03 12:38 | XMS_ITS | Patient Health Record ---
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 Subungual Hematoma 6 X ray : Ankle, right 3V 11/18/2021 Next Appt Details Provider Name:Rosanne Flynn isis, 04/01/2025 01:00:00 PM, [address] [place] [address], [id number], Insurance Providers Payer Name Payer Address Payer Phone Subscriber Number Group Number Insured Name Patient Relationship to Insured Coverage Start Date Coverage End Date Medicare National [employer] [address] [place] [address] [id number] Vangie Whalen Self - patient is the insured [facility] [address] [place] [address] [id number] Vangie Whalen Self - patient is the insured Medical (General) History Medical History History ICD Code Anxiety Arthritis Back,Hip,and Knee pain Cancer, breast Depression High blood pressure Menieres disease Reflux chronic sinusitis Joint implants/screws Anemia Surgical History Surgery Date(Month/Year) lumpectomy 2000 mastectomy 2010 hysterectomy 2003 left knee replacement 2013 hip replacement 2017 bladder surgery 04/2013
== END 2025-02-03 12:30 | disposition home or self-care (01) ==
LOC: HO.HMCH 11:20
DX: N32.81 Overactive bladder (principal); I10 Essential (primary) hypertension; F41.9 Anxiety disorder, unspecified; F32.A Depression, unspecified; Z85.3 Personal history of malignant neoplasm of breast; Z13.220 Encounter for screening for lipoid disorders

== ENCOUNTER → 2025-02-03 11:20 | Outpatient (BNVA) | payer MEDICARE, SELFPAY | PROVIDERS: PCP Internal Medicine | DX: N32.81 Overactive bladder (principal); I10 Essential (primary) hypertension; F41.9 Anxiety disorder, unspecified; F32.A Depression, unspecified | CPT/HCPCS: 99212 ==

== ENCOUNTER 2025-04-23 11:06 | Outpatient (REF) | payer MEDICARE, SELFPAY ==
--- OUTSIDE RECORDS SUMMARY | 2025-04-22 09:30 | XMS_ITS ---
Author Organization [facility] Address [address] [place] [address] Care Team Providers Care Disc Sander Name Role Phone Sylvia Metzger Primary Care Provider Unavailab Rosanne Sandy Unavailable [phone] Allergies No Known Allergies REASON FOR VISIT Wart(s), Skin problem Medications Medication SIG (Take, Route, Frequency, Duration) Notes Start Date End Date Status Ammonium Lactate 12 % 1 application Exte rnally to affected areas of dry skin to feet except for between the toes Twice a day; Duration: 30 days Active Physical Therapy . . . 2-3x/week; Durat ion: 3-4 weeks 11/18/2021 Unknown ASO-AFO L1902 as directed 08/16/2016 Unk nown Cephalexin 500 MG 1 capsule Orally phil ry 6 hrs; Duration: 5 day(s) Unknown ASO Ankle/Foot Stablizing AFO As directed Wear Daily; Duration: as needed 08/16/2016 Unknown Omeprazole 20 MG TAKE 1 CAPSULE ONCE A DAY ORALLY 30 DAY(S) Oral; Duration: 30 Active Multivitamin - 1 tablet Orally Once a day; Duration: 30 day(s) Active Vitamin D3 2000 UNIT 1 capsule Orally On 07/19/2016 Active LORazepam 0.5 MG (Schedule IV Drug) T [place] 1 TABLET BY MOUTH ONCE A DAY NEEDED FOR ANXIETY Oral; Duration: 30 Active buPROPion HCl ER (SR) 200 MG TAKE 1 TABLET BY MOUTH TWICE A DAY Oral; Duration: 90 Active Atenolol 100 MG 1 TABLET ONCE A DAY ORALLY 30 DAYS Oral; Duration: 30 Active Social History Tobacco Use: Social History Observation Description Date Details (start date - stop date) Never Smoker NA - NA Tobacco use other than smoking: Question Answer Notes Are you an other tobacco user? No Tobacco Control (Standard) Question Answer Notes Tobacco use: Nonsmoker Additional Findings: Tobacco non-user Current no nsmoker AUDIT-C (Standard) Question Answer Notes Did you have a drink containing alcohol in the p ast year? No Points 0 Interpretation Negative Vital Signs Height 5 ft 8 in in 04/22/2025 Weight 240 lbs 04/22/2025 BMI 36.49 kg/m2 04/22/2025 Blood pressure systolic 138 mm Hg 04/22/20 25 Blood pressure diastolic 65 mm Hg 025 Procedures Procedure Date Ordered Date Performed Result Body Sit e 33115-Rdef Destruction, -04/22/2025 N/A Encounters Encounter Location Date Provider Diagnosis [facility] [address] [address] 04/22/2025 Rosanne Stoddard Left foot pain M79.672 ; Plantar wart B07.0 and Xerosis of skin L85.3 Assessments Encounter Date Diagnosis (ICD Code) Assessment Notes Treatment Notes Treatment Clinical Notes Section Notes 04/22/2025 Left foot pain (ICD-10 - M79.672) 04/22/2025 Plantar wart (ICD-10 - B07.0) 04/22/2025 Xerosis of skin (ICD-10 - L85.3) Plan Of Treatment Medication Medication Name Sig Start Date Stop Date Notes Ammonium Lactate 12 % 1 application Exte rnally to affected areas of dry skin to feet except for between the toes Twice a day; Duration: 30 days Pending Test Test Name Order Date 98742-Nmgb Destruction, -04/22/2025 Next Appt Details Follow Up: 6 Weeks, Reason: Procedure Notes * Category Sub-Category Detail Notes Wart Treatment Procedure Verruca, as desc ribed in exam, were debrided to pin- point bleeding margins with sterile 15 surgical blade, silver nitrate chemocautery applied, recomm. immune-boosting meds such as zinc, recomm. follow up with topical chemosurgical agents, Pt defers any other forms of tx - 46246 Progress Notes * Vangie ROD ADOB: [birth year] (70 yo F)Acc No.[id number]:04/22/2025 Progress Notes Patient: Vnagie SHOEMAKER Provider: Kristina Stoddard DPM :1955 A ge:70 Y S ex:Female Date:04/22/2025 Address:[address] [place] [address], [facility], [id number] Pcp:Sylvia Metzger Subjective: * Chief Complaints: * W art(s)Skin problem * HPI: S kin problems: Pt States PCP Visit: D ATE 0 01/07/2025 Nature: d ryness , scaling. Location: B /L . Duration: s everal days. Course: w orse. Treatments: T opical OTC moisturizing lotion/cream is no longer effective, has not relieved condition. * ROS: G eneral/Constitutional: Nausea d enies. V omiting d enies. H gala Thirst d enies. L oss appetite d enies. C hills d enies. F atigue d enies.?Fever d enies. N ight Sweats d enies. U nexplained weight loss d enies. U nexplained weight gain d enies. H EENTM: Dentures d enies. D izziness d enies. G lasses/contacts a dmits. R etinopathy d enies. B lurred/double vision d enies. T MJ?denies. D ischarge/drainage d enies. I mplants d enies. S ore throat d enies. D ental implants d enies. H giselle of hearing a dmits. D ifficulty chewing/swallowing/speaking d enies. N ose bleeds d enies. S ore mouth d enies. ? R espiratory: On Oxygen d enies. P neumonia/pleurisy d enies.?Bronchitis d enies. E mphysema d enies. C oughing d enies. C ough blood?denies. S hortness of breath d enies. W heezing d enies. C ardiovascular: Pacemaker d enies. M ACCESS SERVICES ASSISTANT d enies. W PW d enies. C HF d enies. H eart attack d enies. S eptal defect d enies. R apid beat d enies. C hest pain d enies. A trial Fib. d enies. M urmur/Palpitations d enies. G astrointestinal: Hemorrhoids d enies. S tomach/Abdominal pain d enies. D ark blood stool d enies. I rritable bowel d enies. C onstipation d enies. D iarrhea d enies. H ematology: Swelling d enies. C lots d enies. V aricose Veins d enies. B ruising d enies. B leeding problem d enies. G enitourinary: Blood urine d enies. F requent/Painfu/urination/bladder control d enies. K idney stones d enies. I nfection (UTI) d enies. N ephropathy d enies. s ex trans dis (STD) d enies. P rostate d enies. M usculoskeletal: Hammertoes d enies. B unions d enies. B ack Pain d enies. M uscle Cramps/ Resting d enies. M uscle cramps / walking d enies.?Generalized aches and pains d enies. W eakness d enies. I nteg.: Flynn d enies. S cars d enies. C orns/calluses?admits. I ngrown nails d enies. P ainful nails d enies. O pen Sores d enies. R ashes d enies. N eurologic: Difficulty sleeping d enies. B rain disorder d enies. N umbness d enies. B alance trouble d enies. C onfusion d enies. F ainting/blackouts d enies. T ingling d enies. T remors d enies. * Medical History: * Surgical History: l umpectomy 2001mastectomy 2011hysterectomy 2003left knee replacement 2014hip replacement 2017bladder surgery 04/2013 * Hospitalization/Major Diagno stic Procedure: D enies Past Hospitalization * Family History: M other: , diagnosed with Other malignant neoplasm of unspecified site, Unspecified essential hypertension, Family history of arthritis. F ather: , poor circulation, diagnosed with Diabetic - NIDDM, Unspecified essential hypertension, Unspecified heart disease, Unspecified cerebral artery occlusion with cerebral infarction. S iblings: unknown, diagnosed with Diabetic - NIDDM, Unspecified essential hypertension, Family history of arthritis. S pouse: alive. * Social History: T obacco Use: T obacco use other than smoking A re you an other tobacco user? N o Tobacco Control (Standard) T obacco use: N onsmoker A dditional Findings: Tobacco non-user C urrent nonsmoker D rugs/Alcohol: D rugs H ave you used drugs other than those for medical reasons in the past 12 months? N o M iscellaneous: C affeine: no. Children: yes, 3. Exercise: yes, walking. Marital status: . Occupation: Retired childcare provider. D rug/Alcohol: A CARLOS-C (Standard) D id you have a drink containing alcohol in the past year? N o P oints 0 I nterpretation N egative * Medications: T akingAtenolol 100 MG Tablet 1 TABLET ONCE A DAY ORALLY 30 DAYS Oral buPROPion HCl ER (SR) 200 MG Tablet Extended Release 12 Hour TAKE 1 TABLET BY MOUTH TWICE A DAY Oral LORazepam 0.5 MG Tablet (Schedule IV Drug) TAKE 1 TABLET BY MOUTH ONCE A DAY NEEDED FOR ANXIETY Oral Multivitamin - Tablet 1 tablet Orally Once a day Omeprazole 20 MG Capsule Delayed Release TAKE 1 CAPSULE ONCE A DAY ORALLY 30 DAY(S) Oral Vitamin D3 2000 UNIT Capsule 1 capsule Orally Once a day Taking Atenolol 100 MG Tablet 1 TABLET ONCE A DAY ORALLY 30 DAYS Oral Taking buPROPion HCl ER (SR) 200 MG Tablet Extended Release 12 Hour TAKE 1 TABLET BY MOUTH TWICE A DAY Oral Taking LORazepam 0.5 MG Tablet (Schedule IV Drug) TAKE 1 TABLET BY MOUTH ONCE A DAY NEEDED FOR ANXIETY Oral Taking Multivitamin - Tablet 1 tablet Orally Once a day Taking Omeprazole 20 MG Capsule Delayed Release TAKE 1 CAPSULE ONCE A DAY ORALLY 30 DAY(S) Oral Taking Vitamin D3 2000 UNIT Capsule 1 capsule Orally Once a day UnknownPhysical Therapy . . . . 2-3x/week Cephalexin 500 MG Capsule 1 capsule Orally every 6 hrs ASO-AFO L1902 as directed ASO Ankle/Foot Stablizing AFO As directed Wear Daily Medication List reviewed and reconciled with the patientUnknown Physical Therapy . . . . 2- 3x/week Unknown Cephalexin 500 MG Capsule 1 capsule Orally every 6 hrs Unknown ASO-AFO L1902 as directed Unknown ASO Ankle/Foot Stablizing AFO As directed Wear Daily Medication List reviewed and reconciled with the patient * Allergies: N .K.D.A.yes[Allergies Verified] Objective: * Vitals: H t:5 ft 8 in, Wt:240, BMI:36.49, Shoe size:11W, BP:138/65mm Hg, Ht-cm: 172.72 cm, Wt-k.86 kg. * Examination: D ermatologic: SKIN FINDINGS: S kin shows sign(s) of, dryness, scaling, in a stocking fashion, no fissure(s) present, B/L. VERRUCA: R eveals Multiple ( 3 ), multi-loculated , mosaic-patterned, round, raised, flat-topped, petechial bleeding papule(s), with cauliflower appearance and interruption of skin lines, with pain to lateral compression, and size estimated at 6__ mm diameter, medial heel left. G eneral Examination: GENERAL APPEARANCE: R joseeals a pleasant, alert, well-nourished, well-developed, well hydrated individual, who demonstrates proper attention to hygiene/body habitus, and is in no acute distress, Pt serves as own h istorian for office visit today. ORIENTED: p erson, place, and time. N eurological: SENSORY: N eurological exam reveals intact sensorium, pain sensation normal, vibration sensation intact, pinprick sensation is normal in the lower extremities, Pt denies, anesthesia, burning, paresthesia, tingling, B/L. DEEP TENDON REFLEXES: A chilles, 2/4, B/L. V ascular: DP PULSES (B): 3 /4, B/L. PT PULSES (B): 3 /4, B/L. CAPILLARY FILL TIME: i mmediate, all digits, B/L. TROPHIC CONDITION-TEXTURE/ELASTICITY/TURGOR/HAIR GROWTH (B):?normal, B/L. TEMPERTURE GRADIENT (C): w arm to cool, proximal to distal, B/L. PIGMENTATION: n ormal, B/L. EDEMA (C): a bsent, B/L. O rthopedic: MUSCLE STRENGTH: 5 /5 all groups in a symmetrical fashion , B/L. Assessment: * Assessment: 1. L eft foot pain - M79.672 2 . P lantar wart - B07.0 (Primary) 3 . X erosis of skin - L85.3 S pecify :Acute problem, Uncomplicated (3), Rx Management (4) Plan: * Treatment: 2. X erosis of skin Start Ammonium Lactate Cream, 12 %, 1 application, Externally to affected areas of dry skin to feet except for between the toes, Twice a day, 30 days, 280, Refills 3. * Procedures: W art Treatment: Procedure V erruca, as described in exam, were debrided to pin-point bleeding margins with sterile 15 surgical blade, silver nitrate chemocautery applied, recomm. immune-boosting meds such as zinc, recomm. follow up with topical chemosurgical agents, Pt defers any other forms of tx - 01597. * Procedure Codes: 1 7110 Wart Destruction, 1-14, Modifiers: XS * Preventive Medicine: Counseling: D iscussion: - 13: Office or other outpatient visit for the evaluation and management of an established patient, which required a medically appropriate history and/or examination and LOW level of DECISION MAKING for: 1 STABLE ACUTE UNCOMPLICATED PROBLEM, 2 OR MORE MINOR PROBLEMS, OR 1 STABLE CHRONIC PROBLEM, THAT POSE(S) A LOW RISK FOR MORBIDITY/MORTALITY. The visit on the day of the encounter encompassed interpreting the data and educating the patient as to the nature of their condition, treatment options available according to their individual PMH, meds, allergies, and overall health/living conditions, as well as any potential risks or complications that may occur from a failure to adhere to, and participate in, the recommended course of therapy. The discussion included a complete verbal, and/or written explanation of the examination results, any x-rays taken, the proposed diagnosis, and outline of the treatment plan. A schedule for future care needs was also explained. The patient verbalized an understanding of the instructions at this time and agreed to be an active participant in their treatment. If the patient should think of any questions or concerns after the visit, I have encouraged the patient to call the office. X erosis: T he patient was counseled on the diagnosis, potential etiologies, and treatment options for their skin condition. We discussed the risks and benefits of each option from performing no treatment, to utilizing OTC topical skin creams/ointments, to utilizing prescription topical creams/ointments, to utilizing customized compounded topical medications and use of nocturnal occlusion with any/all previously detailed therapies. We discussed the advantages and disadvantages of each possible treatment and importance for adherence to all the recommended therapies for optimum success and avoid potential complications such as open sore/infection/possible hospitalization. We discussed the potential effectiveness of each topical preparation as well as each ones possible side effects and/or patient medication interactions. Patient questions re: use, dosage, successful outcomes, and application consistency were reviewed and the patient verbalized that all answers were clearly understood. The patient has decided to apply Rx skin creams to their feet save the interspaces while paying special attention to the heels. Such was sent to their pharmacy at the time of visit. Screening/Special Tests: F all Risk Screening: N o falls in the past year F ALLS: Screening for Future Fall Risk Have you had any falls with injury in the past year? N o * Follow Up: 6 Weeks * Images: * Sign off status: Completed true * Provider: Kristina Stoddard DPM Date: 04/22/2025 Generated for Amado medina/Donovan/Katerina on: 04/23/2025 11:43 AM EDT History and Physical Notes * HPI (History of Present Illness) Category Sub-Category Detail Notes Category Not es Skin problems Nature: dryness , scaling Location: B/L Duration: several days Course: worse Treatments: Topical OTC moisturi zing lotion/cream is no longer effective, has not relieved condition Pt States PCP Visit: DATE: 01/07/2025 Examination Category Sub-Category Detail Notes Category Not es Neurological SENSORY: Neurological exa m reveals intact sensorium, pain sensation normal, vibration sensation intact, pinprick sensation is normal in the lower extremities, Pt denies, anesthesia, burning, paresthesia, tingling, B/L DEEP TENDON REFLEXES: Achilles, 2/4, B/L Dermatologic SKIN FINDINGS: Skin shows sign( s) of, dryness, scaling, in a stocking fashion, no fissure(s) present, B/L VERRUCA: Reveals Multiple ( 3 ), multi-loculated , mosaic-patterned, round, raised, flat-topped, petechial bleeding papule(s), with cauliflower appearance and interruption of skin lines, with pain to lateral compression, and size estimated at 6__ mm diameter, medial heel left Orthopedic MUSCLE STRENGTH: 5/5 all groups in a symm etrical fashion , B/L General Examination GENERAL APPEARANCE: Reveals a pleasant, alert, well- nourished, well-developed, well hydrated individual, who demonstrates proper attention to hygiene/body habitus, and is in no acute distress, Pt serves as own historian for office visit today ORIENTED: person, place, and t jevon Vascular DP PULSES (B): 3/4, B/L PT PULSES (B): 3/4, B/L CAPILLARY FILL TIME: immediate, all digi ts, B/L TEMPERTURE GRADIENT (C): warm to cool, p roximal to distal, B/L TROPHIC CONDITION-TEXTURE/ELASTICITY/TURGOR/HAIR GROWTH (B): normal, B/L EDEMA (C): absent, B/L PIGMENTATION: normal, B/L
--- OUTSIDE RECORDS SUMMARY | 2025-04-23 11:44 | XMS_ITS | Patient Health Record ---
Author Organization [facility] Address [address] [place] [address] Care Team Providers Care Sales Broker Name Role Phone Lizy NOVAK, Alberto Primary Care Provider Dallas Allison Unavailable [phone] Reason For Referral No Information Medications Medication SIG (Take, Route, Frequency, Duration) Notes Start Date End Date Status Lorazepam 0.5 mg one tablet Oral daily Active Omeprazole 20 MG 1 capsule Orally Onc e a day for 90 Active Vitamin D3 2000 UNIT 1 capsule Orally On ce a day Active atenolol 100 mg one tablet Oral once a day Active buPROPion HCl ER (SR) 200 MG 1 tablet Orally Twice a day Active Dicyclomine HCl 10 MG 1-2 capsules Orall y Four times a day prn abdominal cramps/discomfort for 30 day(s) 08/21/2017 Active Multivitamin Adults - Orally Active Problems Problem Type SNOMED Code ICD Code Onset Dates Problem Status W/U Status Risk Notes Problem 589763802 Gastro-esophagea l reflux disease without esophagitis (K21.9) Active confirmed Problem 017618176 Encounter for screening for malignant neoplasm of colon (Z12.11) Active confirmed Problem 259605374 Irritable bowel syndrome with diarrhea (K58.0) Active confirmed Problem 999217213 Fatty liver (K76.0) Active confirmed Problem 862535391 Right lower quadrant abdominal pain (R10.31) Active confirmed Problem 88318428 Diarrhea, unspecified type (R19.7) Active confirmed Plan Of Treatment Pending Test Test Name Order Date CHEM 7 PROFILE 09/29/2021 LIVER PROFILE 09/29/2021 CRP 09/29/2021 CBC w DIFF 09/29/2021 SED RATE (ESR) 09/29/2021 CELIAC PANEL #10 09/29/2021 OVA & PARASITES (O&P) 09/29/2021 STOOL WBC 09/29/2021 C DIFFICILE RFLX PCR 09/29/2021 Giardia Ag Stool EIA 09/29/2021 Stool Culture 09/29/2021 Future Test Test Name Order Date COLONOSCOPY 07/01/2015 Insurance Providers Payer Name Payer Address Payer Phone Subscriber Number Group Number Insured Name Patient Relationship to Insured Coverage Start Date Coverage End Date [facility] [address] [place], [place] [id number] DARÍO ROD Self - patient is the insured Medical (General) History Medical History History ICD Code Fatty liver--her workup in was negative for viral serologies, ceruloplasmin, autoimmune studies, iron studies--her liver ultrasound was normal as well--her liver enzymes when last checked in 2004 showed an AST of 55 and ALT of 38--she thinks she has had subsequent liver profiles that have been stable Breast cancer on the right in 2000 and --mastectomy in 2010 GERD--neg EGD [place] [address] Burris HTN Depression and anxiety Denies MT,DM,CVA,Lung disease,renal dise ase Neurogenic bladder Neg. screening colonoscopy i n 06/2005 and 09/2015--diverticulosis and internal hemorrhoids Surgical History Surgery Date(Month/Year) HARJEET 2002 Right mastectomy in 2010 and reconstruct ion [facility] Bilateral inguinal hernias Left knee replacement in 2013 Bladder stimulator for urinary retention --Dr. Linda, III Parotid gland lump removal Right hip replacement 12/2016 Bilateral carpal tunnel release- Benign breast biopsy 2017
[2025-04-23 12:57] LABS: MANUAL DIFF FLAG NO
[2025-04-23 12:59] LABS: Hematocrit 45.9 % (37.0-47.0); Hemoglobin 15.6 g/dl (12.0-16.0); Imm Gran Abs Auto 0.01 X10*3/uL (0.00-0.03); Imm Gran Pct Auto 0.2 % (0.0-0.4); Lymphocytes Absolute Auto 2.1 X10*3/uL (1.2-4.9); Mean Corpuscular HGB Conc 34.0 g/dl (31.0-35.0); Mean Corpuscular Hemoglobin 32.4 pg (27.0-33.0); Mean Corpuscular Volume 95.4 fL (80.0-98.0); NRBC Abs Auto 0.000 X10*3/uL (0.0-0.012); NRBC Pct Auto 0.0 /100WBC (0.0-0.2); Platelet Count 160 X10*3/uL (160-400); Red Blood Count 4.81 X10*6/uL (4.20-5.50); White Blood Count 5.4 X10*3/uL (4.8-10.8)
[2025-04-23 13:07] LABS: Hemoglobin A1C 147.7750 umol/L; Total Hemoglobin (HGBA1C) 4089.6679 umol/L
[2025-04-23 14:05] LABS: Alanine Aminotransferase 47 U/L (0-31); Albumin Level 4.3 g/dL (3.5-5.0); Alkaline Phosphatase 89 U/L (39-117); Anion Gap 11 (12-20); Aspartate Amino Transferase 56 U/L (5-31); Blood Urea Nitrogen 20 mg/dL (9-16); Calcium 9.0 mg/dL (8.4-10.2); Carbon Dioxide 29 mmol/L (22-29); Chloride 106 mmol/L (96-108); Cholesterol 179 mg/dL (<200); Estimated Glomerular Filt Rate 44; HDL Cholesterol 37 mg/dL (>40); Potassium 4.3 mmol/L (3.3-5.1); Sodium 142 mmol/L (135-145); Total Protein 7.5 g/dL (6.5-8.0); Triglycerides 206 mg/dL (<150)
[2025-04-23 14:12] LABS: Free T4 (Free Thyroxine) 0.86 ng/dL (0.71-1.85)
[2025-04-23 14:18] LABS: Folate 12.9 ng/mL (> or = 4.0); Vitamin B12 578 pg/mL (200-900)
== END 2025-04-23 11:07 | disposition home or self-care (01) ==
LOC: HO.10HDL 11:06
DX: Z00.00 Encounter for general adult medical examination without abnormal findings (principal); Z13.1 Encounter for screening for diabetes mellitus; Z13.220 Encounter for screening for lipoid disorders; I10 Essential (primary) hypertension
CPT/HCPCS: 36415; 80053; 80061; 82306; 82607; 82746; 83036; 84439; 84443; 85025

== ENCOUNTER 2025-05-07 11:22 | Outpatient (AMB) | payer MEDICARE, SELFPAY ==
--- NOTE | 2025-05-07 11:24 | A.OFFPC_ITS ---
Vital Signs 05/07/25 11:29 Height 5 ft 8 in Weight 244 lb 8 oz BMI 37.2 BP 122/70 Pulse 67 Pulse Oximetry (%) 97 Intake Visit Reasons: f/u HTN and blood work Milk Treater Required: No Accompanied by: Self / Same As Patient Allergies lactose (LACTOSE) Allergy (Unknown, Verified 05/07/25 11:50) SEVERE DIARRHEA- CRAMPS Medication List - Last Reconciled 05/07/25 by Sylvia Metzger PA-C atenolol 100 mg PO DAILY bupropion HCl SR 200 mg PO BID cholecalciferol (vitamin D3) (Vitamin D3) 50 mcg PO DAILY lorazepam 0.5 mg PO BID-TID PRN multivitamin 1 tab PO DAILY omeprazole 20 mg PO DAILY@0630 Tobacco use date assessed: 05/07/25 Fall risk assessment: No Falls in past year Last assessed Fall Risk: 05/07/25 Dental Screening Dental Screen Date: 05/07/25 Did you have a dental visit in the last 12 months?: No Did you have a dental problem in the last 6 months where you did not have access to dental care?: No Was dental information given to patient?: No HPI f/u HTN and blood work HPI Details 70-year-old female with past medical his tory of overactive bladder, hypertension last seen 01/2025 coming in for follow up. Presenting with the management of chronic conditions including fatty liver disease, and hypertriglyceridemia. The patient's has dementia, which is worsening, and she feels the need to think for both of them. His cognitive function is declining, and he exhibits symptoms of attention deficit disorder (ADD).The patient has a history of fatty liver disease, confirmed by an abdominal ultrasound in 2021. Liver function tests are elevated, likely due to the fatty liver. The patient's triglyceride levels are elevated at 206 mg/dL, with a history of fluctuations. The levels were previously higher at 226 mg/dL in December but have decreased since then. [facility] Medical History Chest pain Anxiety History of stress incontinence Graves disease Depression Breast cancer, right Obesity Hypertension Surgical History History of cardiac cath Hx of colonoscopy Hx of total mastectomy of right breast History of cholecystectomy History of surgery History of inguinal hernia repair History of D&C History of lumpectomy of right breast History of total abdominal hysterectomy and bilateral salpingo-oophorectomy History of arthroscopy of right knee History of carpal tunnel release History of hip replacement History of wisdom tooth extraction History of tonsillectomy Family History Father Diabetes Mother Hypertension Throat cancer Maternal Grandmother Diabetes Maternal Uncle Cancer Social History Household Members: Spouse Housing: House Do you presently have visiting nurse or other home services: No Alcohol intake: never Patient Tobacco Use Status: Never used Tobacco Tobacco use type: Cigarette e-Cigarette/Vaping Use: Never Used Second Hand Smoke Exposure: No Advance Directives Date on File: 09/06/22 service: No Current occupational status: retired Current occupational exposures/hazards: No Cognitive needs: No Hearing needs: No Vision needs: Yes Questionnaire PHQ-9 Over the last 2 weeks, how often have you been bothered by any of the following problems? 1. Little interest or pleasure in doing things: not at all 2. Feeling down, depressed, or hopeless: not at all 3. Trouble falling or staying asleep, or sleeping too much: not at all 4. Feeling tired or having little energy: not at all 5. Poor appetite or overeating: not at all 6. Feeling bad about yourself - or that you are a failure or have let yourself or your family down: not at all 7. Trouble concentrating on things, such as reading the newspaper or watching television: not at all 8. Moving or speaking so slowly that other people could have noticed. Or the opposite - being so fidgety or restless that you have been moving around a lot more than usual: not at all 9. Thoughts that you would be better off or of hurting yourself in some way: not at all Total score: 0 Depression Screening Interpretation: Negative Depression Screening Done: Yes Source: Developed by Drs. Dallas Mcleod, Agueda De La Rosa, Spencer Sahu and colleagues, with an educational jackelin from [employer] ([employer] Thrive Questionnaire Date Thrive assessed: 05/07/25 GOKUL-7 AMB Questionnaire GOKUL-7 Date GOKUL - 7 assessed: 05/07/25 Source: Developed by Drs. Dallas Mcleod, Agueda De La Rosa, Spencer Sahu and colleagues, with an educational jackelin from [employer] ([employer] Review of Systems Const Denies body aches, Denies chills, Denies fever(s), Denies headache(s) and Denies poor appetite Eyes Reports no additional complaints ENT Denies dysphagia, Denies dizziness, Denies headache(s) and Denies odynophagia Card Denies chest pain, Denies syncope, Denies edema, Denies irregular heart rhythm, Denies lightheadedness and Denies dyspnea Resp Denies cough and Denies dyspnea GI Denies abdominal pain, Denies constipation, Denies dysphagia, Denies diarrhea, Denies nausea, Denies odynophagia and Denies vomiting Reports no additional complaints Musc Reports no additional complaints and Denies abnormal gait Skin/Breast Reports system reviewed and no additional complaints, except as documented Neuro Denies abnormal gait, Denies dizziness, Denies syncope and Denies headache(s) Psych Reports no additional complaints Physical exam (Primary Care) Vital Signs: Last Vital Signs Pulse 67 05/07/25 11:29 BP 122/70 05/07/25 11:29 Pulse Ox 97 05/07/25 11:29 BMI result Body Mass Index 37.2 Tobacco/Smoking Status: Tobacco use Status Tobacco use date assessed 05/07/25 05/07/25 11:36 Patient Tobacco Use Status Never used Tobacco 05/07/25 11:25 Tobacco use type Cigarette 05/07/25 11:25 e-Cigarette/Vaping Use Never Used 05/07/25 11:25 PHQ-9: PHQ-9 Score PHQ-9: Total score 0 05/07/25 13:26 Depression Screening Interpretation: Negative Thrive Assessment: Date of Thrive Assessment Date Thrive assessed 05/07/25 05/07/25 11:36 Const General: cooperative, healthy appearing, comfortable and no acute distress Orientation/consciousness: patient oriented x3 HENMT Head: Yes normocephalic Ears: hearing grossly normal bilaterally General nose exam: Normal external nose present Eyes General: appearance normal, both eyes and all related structures Conjunctivae: conjunctivae normal Neck Neck: Yes full ROM and Yes no lymphadenopathy Resp Effort & Inspection: normal respiratory effort Auscultation: clear to auscultation bilaterally, no crackles, no rales, no rhonchi and no wheezes Cardio Rate: regular rate Rhythm: regular rhythm Skin General skin exam: no rashes or lesions noted Neuro General: patient oriented x3 Gait exam (Neuro): Normal gait present Extrem General: Yes normal to inspection, Yes full ROM and No edema Psych Affect: normal affect Attitude: cooperative Insight: Good insight present (Psych) Judgement: Good judgement present (Psych) Coding Level of Care Code Est Pt Level 3 (59668) Diagnoses Hypertension I10 Anxiety F41.9 Fatty liver K76.0 Hypertriglyceridemia E78.1 Assessment & Plan Assessment & Plan (1) Hypertension: Code(s): I10 - Essential (primary) hypertension Category: Medical Plan: Continue on current blood pressure medication. Avoid salt intake and encourage healthy diet and regular exercise. (2) Anxiety: Code(s): F41.9 - Anxiety disorder, unspecified Category: Medical Plan: She feels the anxiety is well managed. She continues to use the Lorazepam at night for anxiety and is not interested in lowering this medication or trying a new medication at this time. She will continue to follow with the counselor as well. (3) Fatty liver: Code(s): K76.0 - Fatty (change of) liver, not elsewhere classified Category: Medical Plan: Healthy diet and regular exercise is encouraged. (4) Hypertriglyceridemia: Code(s): E78.1 - Pure hyperglyceridemia Category: Medical Plan: Avoid foods that are high in cholesterol such as red meat, fried foods, eggs and baked goods. Triglyceride goal of less than 150 and LDL goal of less than 130. Recent triglyceride at 205 discussed possibility medication. Patient would like to work on diet and exercise and plan to repeat in 6 months as patient does not like to travel in the winter. Plan The patient is advised to continue managing her anxiety with lorazepam and counseling, and to use essential oils as needed for additional calming effects. For fatty liver disease, the patient is encouraged to maintain a healthy diet and engage in regular exercise to manage liver health. Similarly, hypertriglyceridemia management focuses on dietary modifications and increased physical activity to reduce triglyceride levels. The patient is advised to increase water intake to address mild dehydration and to continue monitoring her blood pressure and cholesterol levels regularly. Follow-up appointments are recommended every six months to ensure ongoing management of these conditions. This note was constructed using voice recognition software. While every effort has been made to ensure accuracy and transcription typist, still areas may have been included sometimes these areas may affect the content or meeting of the given symptoms. Total time spent caring for the patient today was 30 minutes. This includes time spent before the visit reviewing the chart, time spent during the visit, and time spent after the visit and documentation. Patient was informed and verbally consented to the use of an ambient scribe for clinic note documentation during this visit. Orders: Orders Complete Blood Count Auto Diff 6 Months I10 - Essential (primary) hypertension, Z00.00 - Encounter for general adult medical examination without abnormal findings Hemoglobin A1c 6 Months E11.65 - Type 2 diabetes mellitus with hyperglycemia, Z13.1 - Encounter for screening for diabetes mellitus Lipid Panel 6 Months E78.00 - Pure hypercholesterolemia, unspecified, E78.1 - Pure hyperglyceridemia TSH reflex Free T4 6 Months Z13.29 - Encounter for screening for other suspected endocrine disorder Vitamin B12 and Folate 6 Months Z13.21 - Encounter for screening for nutritional disorder Vitamin D 25-OH Total 6 Months Z13.21 - Encounter for screening for nutritional disorder Comprehensive Met. Panel 6 Months K76.0 - Fatty (change of) liver, not elsewhere classified, Z00.00 - Encounter for general adult medical examination without abnormal findings
[2025-05-07 11:29] VITALS: BP 122/70; PULSE 67; O2SAT 97; BMI 37.2
== END 2025-05-07 12:19 | disposition home or self-care (01) ==
LOC: HO.HMCH 11:22
PROVIDERS: PCP Internal Medicine
DX: I10 Essential (primary) hypertension (principal); F41.9 Anxiety disorder, unspecified; K76.0 Fatty (change of) liver, not elsewhere classified; E78.1 Pure hyperglyceridemia

== ENCOUNTER → 2025-05-07 11:22 | Outpatient (BNVA) | payer MEDICARE, SELFPAY | PROVIDERS: PCP Internal Medicine | DX: I10 Essential (primary) hypertension (principal); F41.9 Anxiety disorder, unspecified; E78.1 Pure hyperglyceridemia; K76.0 Fatty (change of) liver, not elsewhere classified | CPT/HCPCS: 99212 ==

== ENCOUNTER 2025-06-17 14:51 | Outpatient (AMB) | payer MEDICARE, SELFPAY ==
[2025-06-17 15:03] VITALS: BP 138/68; PULSE 64; O2SAT 96; BMI 37.9
--- NOTE | 2025-06-17 15:03 | A.OFFPC_ITS ---
Vital Signs 06/17/25 15:03 Height 5 ft 8 in Weight 249 lb BMI 37.9 BP 138/68 Blood Pressure Location Lt brachial Position Sitting Pulse 64 Pulse Source Pulse Oximeter Pulse Oximetry (%) 96 Oxygen Delivery Method Room Air Intake Visit Reasons: Shortness of breath Allergies lactose (LACTOSE) Allergy (Unknown, Verified 06/17/25 15:10) SEVERE DIARRHEA- CRAMPS Medication List - Last Reconciled 06/17/25 by RENETTA Ibrahim atenolol 100 mg PO DAILY bupropion HCl SR 200 mg PO BID cholecalciferol (vitamin D3) (Vitamin D3) 50 mcg PO DAILY lorazepam 0.5 mg PO BID-TID PRN multivitamin 1 tab PO DAILY omeprazole 20 mg PO DAILY@0630 Tobacco use date assessed: 05/07/25 Fall risk assessment: No Falls in past year Last assessed Fall Risk: 06/17/25 Dental Screening Dental Screen Date: 05/07/25 HPI Shortness of breath HPI Details The patient is a 70-year-old female presenting with dyspnea on exertion. The shortness of breath began approximately one week ago and occurs primarily during physical exertion, such as walking quickly or performing yard work. The patient reports needing to stop and catch her breath but denies any associated wheezing, chest pain, or other respiratory symptoms. The patient has a history of anxiety, which she suspects may contribute to her symptoms. She describes feeling overanxious, particularly with changes related to her 's early onset dementia. Two years ago, the patient experienced chest pain and underwent extensive cardiac evaluation, which revealed no abnormalities at that time. She has a history of anemia, which was noted a long time ago, but no recent evaluations have been conducted to assess her current status. [facility] Medical History Chest pain Anxiety History of stress incontinence Graves disease Depression Breast cancer, right Obesity Hypertension Surgical History History of cardiac cath Hx of colonoscopy Hx of total mastectomy of right breast History of cholecystectomy History of surgery History of inguinal hernia repair History of D&C History of lumpectomy of right breast History of total abdominal hysterectomy and bilateral salpingo-oophorectomy History of arthroscopy of right knee History of carpal tunnel release History of hip replacement History of wisdom tooth extraction History of tonsillectomy Family History Father Diabetes Mother Hypertension Throat cancer Maternal Grandmother Diabetes Maternal Uncle Cancer Social History Household Members: Spouse Housing: House Do you presently have visiting nurse or other home services: No Alcohol intake: never Patient Tobacco Use Status: Never used Tobacco Tobacco use type: Cigarette e-Cigarette/Vaping Use: Never Used Second Hand Smoke Exposure: No Advance Directives Date on File: 09/06/22 service: No Current occupational status: retired Current occupational exposures/hazards: No Cognitive needs: No Hearing needs: No Vision needs: Yes Questionnaire Thrive Questionnaire Date Thrive assessed: 05/07/25 GOKUL-7 AMB Questionnaire GOKUL-7 Date GOKUL - 7 assessed: 05/07/25 Source: Developed by Drs. Dallas Mcleod, Agueda De La Rosa, Spencer Sahu and colleagues, with an educational jackelin from [employer]. Review of Systems Const All systems reviewed & are unremarkable except as noted in HPI and below Denies body aches, Denies chills and Denies fatigue Eyes Denies loss of vision ENT Denies nasal congestion, Denies tinnitus, Denies sinus pressure and Denies sore throat Card Denies chest pain, Denies rapid heart rate, Denies leg edema and Reports dyspnea on exertion Resp Denies cough and Reports dyspnea on exertion GI Denies abdominal pain, Denies heartburn, Denies nausea and Denies vomiting Musc Denies myalgias, Denies muscle weakness, Denies numbness and Denies tingling Neuro Denies loss of vision, Denies numbness and Denies tingling Psych Reports anxiety Endo Denies fatigue Physical exam (Primary Care) Vital Signs: Last Vital Signs Pulse 64 06/17/25 15:03 BP 138/68 06/17/25 15:03 Pulse Ox 96 06/17/25 15:03 Oxygen Delivery Method Room Air 06/17/25 15:03 BMI result Body Mass Index 37.9 Tobacco/Smoking Status: Tobacco use Status Tobacco use date assessed 05/07/25 06/17/25 15:07 Patient Tobacco Use Status Never used Tobacco 06/17/25 15:07 Tobacco use type Cigarette 10/01/25 15:07 e-Cigarette/Vaping Use Never Used 06/17/25 15:07 Thrive Assessment: Date of Thrive Assessment Date Thrive assessed 05/07/25 06/17/25 15:07 Const General: cooperative Nutritional Appearance: obese Orientation/consciousness: oriented to person, oriented to place, oriented to time and patient oriented x3 Limitations: no limitations HENMT Head: Yes normal to inspection Ears: TM's normal bilaterally General nose exam: Normal nasal mucous membranes and turbinates present Throat: Yes posterior oropharynx normal Eyes Pupils: Equal, round and reactive pupils present Neck Neck: Yes no lymphadenopathy Thyroid: Thyroid normal Resp Effort & Inspection: able to speak in complete sentences Auscultation: clear to auscultation bilaterally Cardio Jugular venous distension: no JVD Rate: regular rate Rhythm: regular rhythm Heart sounds: S1 normal heart sound present, S2 normal heart sound present and no murmurs GI Inspection: Yes obesity Palpation (GI): Soft to palpation and nontender Auscultation: normal bowel sounds Neuro General: oriented to person, oriented to place, oriented to time and patient oriented x3 Cranial nerves: Yes Equal, round and reactive pupils present Extrem General: Yes full ROM Right upper extremity: full ROM Left upper extremity: full ROM Right lower extremity: full ROM; no edema Left lower extremity: full ROM; no edema Psych Appearance: grossly normal Speech and movement: Normal speech and movement present Affect: normal affect Attitude: cooperative Thought content: Normal thought content present Insight: Good insight present (Psych) Judgement: Good judgement present (Psych) Coding Level of Care Code Est Pt Level 3 (83816) Diagnoses Dyspnea on exertion R06.09 Anxiety F41.9 History of anemia Z86.2 Time Spent (min) 33 Assessment & Plan Assessment & Plan (1) Dyspnea on exertion: Code(s): R06.09 - Other forms of dyspnea Category: Medical Plan: The plan includes conducting a chest x-ray, EKG, and blood work to rule out any serious underlying conditions such as cardiac or respiratory issues. A cardiac stress test is considered, with the possibility of using medication to simulate exercise if necessary. (2) Anxiety: Code(s): F41.9 - Anxiety disorder, unspecified Category: Medical Plan: The patient acknowledges anxiety, particularly related to her 's dementia, and is advised to monitor her symptoms and consider further evaluation if they persist. (3) History of anemia: Code(s): Z86.2 - Personal history of diseases of the blood and blood-forming organs and certain disorders involving the immune mechanism Category: Medical Plan: The patient's history of anemia will be evaluated through blood work to determine if it is contributing to her current symptoms. Orders: Orders Complete Blood Count Auto Diff 06/17/25 R06.09 - Other forms of dyspnea XR chest 2V 06/17/25 R06.00 - Dyspnea, unspecified NT Pro B Type Natriuretic Pept 06/17/25 R06.09 - Other forms of dyspnea NM cardiolite stress test 06/17/25 R06.09 - Other forms of dyspnea Basic Metabolic Panel 06/17/25 R06.09 - Other forms of dyspnea ECG 12 lead EKG 06/17/25 R06.09 - Other forms of dyspnea CA lexiscan stress w maynor 06/17/25 R06.09 - Other forms of dyspnea
== END 2025-06-17 15:32 | disposition home or self-care (01) ==
LOC: HO.HMCH 14:52
DX: R06.09 Other forms of dyspnea (principal); F41.9 Anxiety disorder, unspecified; Z86.2 Personal history of diseases of the blood and blood-forming organs and certain disorders involving the immune mechanism

== ENCOUNTER → 2025-06-17 14:51 | Outpatient (REF) | payer MEDICARE, SELFPAY ==
--- NOTE | ~2025-06-17 | XR_ITS ---
EXAMINATION: XR CHEST CLINICAL INFORMATION: R06.00 - Dyspnea, unspecified COMPARISON: Chest 09/05/2022 TECHNIQUE: 2 views of the chest were obtained. FINDINGS: The lungs are well-expanded and clear acute pneumonic process. The heart size and pulmonary vascularity is normal. No gross bony abnormality seen. XR/XR chest 2V IMPRESSION: Unremarkable chest examination. Electronically signed by: Mike Escalante MD 06/18/2025 07:04 AM EDT
[2025-06-17 16:03] LABS: MANUAL DIFF FLAG NO
[2025-06-17 16:15] LABS: Hematocrit 46.9 % (37.0-47.0); Hemoglobin 15.8 g/dl (12.0-16.0); Imm Gran Abs Auto 0.00 X10*3/uL (0.00-0.03); Imm Gran Pct Auto 0.0 % (0.0-0.4); Lymphocytes Absolute Auto 2.0 X10*3/uL (1.2-4.9); Mean Corpuscular HGB Conc 33.7 g/dl (31.0-35.0); Mean Corpuscular Hemoglobin 32.8 pg (27.0-33.0); Mean Corpuscular Volume 97.5 fL (80.0-98.0); NRBC Abs Auto 0.000 X10*3/uL (0.0-0.012); NRBC Pct Auto 0.0 /100WBC (0.0-0.2); Platelet Count 166 X10*3/uL (160-400); Red Blood Count 4.81 X10*6/uL (4.20-5.50); White Blood Count 5.3 X10*3/uL (4.8-10.8)
[2025-06-17 16:41] LABS: Anion Gap 12 (12-20); Blood Urea Nitrogen 16 mg/dL (9-16); Calcium 9.8 mg/dL (8.4-10.2); Carbon Dioxide 27 mmol/L (22-29); Chloride 108 mmol/L (96-108); Estimated Glomerular Filt Rate 49; Potassium 4.5 mmol/L (3.3-5.1); Sodium 142 mmol/L (135-145)
[2025-06-17 16:48] LABS: NT Pro B Type Natriuretic Pept 188.8 pg/mL (<300)
== END ==
LOC: HO.CARD 14:51
DX: R06.09 Other forms of dyspnea (principal); F41.9 Anxiety disorder, unspecified; Z86.2 Personal history of diseases of the blood and blood-forming organs and certain disorders involving the immune mechanism; Z79.899 Other long term (current) drug therapy
CPT/HCPCS: 36415; 71046; 80048; 83880; 85025; 99212

== ENCOUNTER → 2025-06-17 16:05 | Outpatient (BNV) | payer MEDICARE, SELFPAY | PROVIDERS: Visit Provider Radiology Diagnostic Radiology | DX: R06.00 Dyspnea, unspecified (principal) | CPT/HCPCS: 71046 ==

== ENCOUNTER → 2025-06-25 12:59 | Outpatient (REF) | payer MEDICARE, SELFPAY ==
--- NOTE | 2025-06-25 13:17 | ECG_ITS ---
Test Reason : sob Blood Pressure : */* mmHG Vent. Rate : 58 BPM Atrial Rate : 58 BPM P-R Int : 172 ms QRS Dur : 88 ms QT Int : 418 ms P-R-T Axes : 58 -6 22 degrees QTcB Int : 410 ms Sinus bradycardia Otherwise normal ECG When compared with ECG of 06-Sep-2022 10:57, Nonspecific T wave abnormality no longer evident in Lateral leads Referred By: Elan Wells Electronically Signed By: MONIQUE HELTON MD
== END ==
LOC: HO.CARD 12:59
DX: R06.09 Other forms of dyspnea (principal)
CPT/HCPCS: 93005

== ENCOUNTER → 2025-06-25 13:17 | Outpatient (BNV) | payer MEDICARE, SELFPAY | PROVIDERS: Visit Provider Internal Medicine Cardiovascular Disease | DX: R00.1 Bradycardia, unspecified (principal) | CPT/HCPCS: 93010 ==

== ENCOUNTER 2025-08-19 11:27 | Outpatient (REF) | payer MEDICARE, SELFPAY ==
[2025-08-19 14:10] LABS: Erythrocyte Sedimentation Rate 14 MM/HR (0-20)
[2025-08-20 11:18] LABS: Anti Nuclear Antibody Screen NEGATIVE (NEGATIVE)
== END 2025-08-19 11:28 | disposition home or self-care (01) ==
LOC: HO.LAB 11:27
DX: M79.10 Myalgia, unspecified site (principal); I10 Essential (primary) hypertension; R06.09 Other forms of dyspnea; R53.83 Other fatigue; S16.1XXA Strain of muscle, fascia and tendon at neck level, initial encounter; Z13.31 Encounter for screening for depression; Z13.39 Encounter for screening examination for other mental health and behavioral disorders
CPT/HCPCS: 36415; 85652; 86038; 86140; 86235; 96127; 99212

== ENCOUNTER 2025-08-19 11:27 | Outpatient (AMB) | payer MEDICARE, SELFPAY ==
--- OUTSIDE RECORDS SUMMARY | 2025-02-10 08:00 | XMS_ITS ---
Author Organization [facility] Address [address] [place] [address] Care Team Providers Care Edge Bander Operator Name Role Phone Sylvia Metzger Primary Care Provider Unavailab Rosanne Sandy Unavailable [phone] Jonny Colon Unavailable [phone] Encounters Encounter Location Date Provider Diagnosis [facility] [address] [place] [address] 02/10/2025 Jonny Colon Plan Of Treatment No Information Progress Notes * Vangie ROD ADOB: [birth year] (70 yo F)Acc No.[id number]:02/10/2025 Progress Notes Patient: Vangie SHOEMAKER Provider: Steven Colon DPM :1955 A ge:69 Y S ex:Female Date:02/10/2025 Address:[address] [place] [id number] Pcp:Sylvia Meztger Subjective: * Chief Complaints: * * Medical History: Objective: * Vitals: Assessment: Plan: * Treatment: * Images: * The named appointment provid er may or may not be the originator of this progress note, and it is not deemed complete until electronically signed by the appointment provider. Sign off status: Pending * Provider: Steven Colon DPM Date: 0 02/10/2025 Generated for Amado Moring/Katerina on: 1 10/20/2024 01:50 PM EST
[2025-08-19 11:33] VITALS: BP 130/74; PULSE 65; O2SAT 94; BMI 37.7
--- NOTE | 2025-08-19 11:33 | MHC.PC.OV ---
Vital Signs 08/19/25 11:33 Height 5 ft 8 in Weight 248 lb BMI 37.7 BP 130/74 Blood Pressure Location Lt brachial Position Sitting Pulse 65 Pulse Source Pulse Oximeter Pulse Oximetry (%) 94 Oxygen Delivery Method Room Air Intake Visit Reasons: Feeling tired frequently Sql Developer Required: No Accompanied by: Self / Same As Patient Allergies lactose (LACTOSE) Allergy (Unknown, Verified 08/19/25 11:38) SEVERE DIARRHEA- CRAMPS Medication List - Last Reconciled 08/19/25 by Sylvia Metzger PA-C atenolol 100 mg PO DAILY bupropion HCl SR 200 mg PO BID cholecalciferol (vitamin D3) (Vitamin D3) 50 mcg PO DAILY lorazepam 0.5 mg PO BID-TID PRN multivitamin 1 tab PO DAILY omeprazole 20 mg PO DAILY@0630 Tobacco use date assessed: 08/19/25 Fall risk assessment: No Falls in past year Last assessed Fall Risk: 08/19/25 Dental Screening Dental Screen Date: 08/19/25 Did you have a dental visit in the last 12 months?: Yes Did you have a dental problem in the last 6 months where you did not have access to dental care?: No Was dental information given to patient?: Patient has dentist HPI Feeling tired frequently HPI Details 70-year-old female with past medical history of overactive bladder and hypertension last seen 06/2025 coming in for acute problem. Presenting with complaints of muscle soreness. The patient reports that after performing strenuous activities, its muscles become sore and it cannot function the next day, with recovery taking two to three days. Specific episodes include neck pain after vacuuming, Achilles tendon pain that impeded walking after being active outdoors, and severe wrist pain after carrying shopping bags. The neck pain has been persistent for a couple of days and extends from the upper back to the base of the neck. Previously, the patient experienced episodes of dyspnea, which were determined to be anxiety attacks related to the stress of caregiving for the patient's . The patient has not had an anxiety episode since identifying the cause and utilizes coping mechanisms like deep breathing. [facility] Medical History Chest pain Anxiety History of stress incontinence Graves disease Depression Breast cancer, right Obesity Hypertension Surgical History History of cardiac cath Hx of colonoscopy Hx of total mastectomy of right breast History of cholecystectomy History of surgery History of inguinal hernia repair History of D&C History of lumpectomy of right breast History of total abdominal hysterectomy and bilateral salpingo-oophorectomy History of arthroscopy of right knee History of carpal tunnel release History of hip replacement History of wisdom tooth extraction History of tonsillectomy Family History Father Diabetes Mother Hypertension Throat cancer Maternal Grandmother Diabetes Maternal Uncle Cancer Social History Household Members: Spouse Housing: House Do you presently have visiting nurse or other home services: No Alcohol intake: never Patient Tobacco Use Status: Never used Tobacco Tobacco use type: Cigarette e-Cigarette/Vaping Use: Never Used Second Hand Smoke Exposure: No Advance Directives Date on File: 09/06/22 service: No Current occupational status: retired Current occupational exposures/hazards: No Cognitive needs: No Hearing needs: No Vision needs: Yes Questionnaire PHQ-9 Over the last 2 weeks, how often have you been bothered by any of the following problems? 1. Little interest or pleasure in doing things: not at all 2. Feeling down, depressed, or hopeless: not at all 3. Trouble falling or staying asleep, or sleeping too much: not at all 4. Feeling tired or having little energy: not at all 5. Poor appetite or overeating: not at all 6. Feeling bad about yourself - or that you are a failure or have let yourself or your family down: not at all 7. Trouble concentrating on things, such as reading the newspaper or watching television: not at all 8. Moving or speaking so slowly that other people could have noticed. Or the opposite - being so fidgety or restless that you have been moving around a lot more than usual: not at all 9. Thoughts that you would be better off or of hurting yourself in some way: not at all Total score: 0 Source: Developed by Drs. Dallas Mcleod, Agueda De La Rosa, Spencer Sahu and colleagues, with an educational jackelin from [employer]. Thrive Questionnaire Date Thrive assessed: 08/19/25 I am a: Patient What is your living situation today?: I have a steady place to live Within the past 12 months, did the food you bought not last and you didn't have the money to get more?: Never true Within the past 12 months, did you worry whether your food would run out before you got money to buy more?: Never true Do you have trouble paying for medicines?: No Do you have trouble getting transportation to medical appointments?: No Do you have trouble paying your heating and electricity bill?: No Do you have trouble taking care of your child, family member or friend?: No Do you have trouble with day-to-day activities such as bathing, preparing meals, shopping, managing finances, etc.?: No Are you currently unemployed and looking for a job?: No Are you interested in more education?: No Please select the resources that you would like help with: None THRIVE Score: 0 AUDIT C Alcohol Use Questionnaire (AUDIT-C) 1. How often do you have a drink containing alcohol?: Never 3. How often do you have six or more drinks on one occasion?: Never Total Score: 0 Score Reviewed/Action Taken: Yes GOKUL-7 AMB Questionnaire GOKUL-7 Date GOKUL - 7 assessed: 08/19/25 Feeling nervous, anxious, or on edge: 0 = Not at all Not being able to stop or control worryin = Not at all Worrying too much about different things: 0 = Not at all Trouble relaxin = Not at all Being so restless that it is hard to sit still: 0 = Not at all Becoming easily annoyed or irritable: 0 = Not at all Feeling afraid as if something awful might happen: 0 = Not at all Total GOKUL-7 score (0-4 normal; 5-9 mild; 10-14 moderate; 15-21 severe): 0 Source: Developed by Drs. Dallas Mcleod, Agueda De La Rosa, Spencer Sahu and colleagues, with an educational jackelin from [employer]. Review of Systems Const Denies body aches, Denies chills, Denies fever(s), Denies headache(s) and Denies poor appetite Eyes Reports no additional complaints ENT Denies dizziness and Denies headache(s) Card Denies chest pain, Denies lightheadedness and Denies dyspnea Resp Denies cough and Denies dyspnea Musc Reports as per HPI and Reports abnormal gait Skin/Breast Reports system reviewed and no additional complaints, except as documented Neuro Reports abnormal gait, Denies dizziness and Denies headache(s) Psych Reports no additional complaints Physical exam (Primary Care) Vital Signs: Last Vital Signs Pulse 65 08/19/25 11:33 BP 130/74 08/19/25 11:33 Pulse Ox 94 08/19/25 11:33 Oxygen Delivery Method Room Air 08/19/25 11:33 BMI result Body Mass Index 37.7 Tobacco/Smoking Status: Tobacco use Status Tobacco use date assessed 08/19/25 08/19/25 11:38 Patient Tobacco Use Status Never used Tobacco 08/19/25 11:38 Tobacco use type Cigarette 08/19/25 11:38 e-Cigarette/Vaping Use Never Used 08/19/25 11:38 PHQ-9: PHQ-9 Score PHQ-9: Total score 0 08/19/25 11:38 Thrive Assessment: Date of Thrive Assessment Date Thrive assessed 08/19/25 08/19/25 11:38 Const General: cooperative, healthy appearing, comfortable and no acute distress Orientation/consciousness: patient oriented x3 HENMT Head: Yes normocephalic Ears: hearing grossly normal bilaterally General nose exam: Normal external nose present Neck Neck: Yes full ROM and Yes no lymphadenopathy Resp Effort & Inspection: normal respiratory effort Cardio Rate: regular rate Neuro General: patient oriented x3 Gait exam (Neuro): Normal gait present Extrem General: Yes normal to inspection, Yes full ROM and No edema Psych Affect: normal affect Attitude: cooperative Insight: Good insight present (Psych) Judgement: Good judgement present (Psych) Coding Level of Care Code Est Pt Level 3 (33241) Diagnoses Hypertension I10 Muscle ache M79.10 Neck strain S16.1XXA Dyspnea on exertion R06.09 Assessment & Plan Assessment & Plan (1) Hypertension: Code(s): I10 - Essential (primary) hypertension Category: Medical Plan: Continue on current blood pressure medication. Avoid salt intake and encourage healthy diet and regular exercise. (2) Muscle ache: Code(s): M79.10 - Myalgia, unspecified site Category: Medical Plan: The patient's muscle soreness is likely multifactorial, with considerations for deconditioning from inconsistent use and potential underlying autoimmune conditions such as polymyalgia rheumatica or fibromyalgia, the latter being a diagnosis of exclusion. Plan includes ordering non-fasting blood work to rule out autoimmune causes. A referral will be made to rheumatology if results are positive. A referral for physical therapy for the neck and shoulders will be placed, which the patient intends to schedule in November. The patient was provided with a handout for home neck stretches. The patient is encouraged to perform gentle, daily strengthening exercises, and may use Tylenol, ibuprofen, and heating pads for symptomatic relief. (3) Neck strain: Code(s): S16.1XXA - Strain of muscle, fascia and tendon at neck level, initial encounter Category: Medical Plan: See above (4) Dyspnea on exertion: Code(s): R06.09 - Other forms of dyspnea Category: Medical Plan: Resolved Plan This note was constructed using voice recognition software. While every effort has been made to ensure accuracy and medical donation professional, still areas may have been included sometimes these areas may affect the content or meeting of the given symptoms. Total time spent caring for the patient today was 20 minutes. This includes time spent before the visit reviewing the chart, time spent during the visit, and time spent after the visit and documentation. Patient was informed and verbally consented to the use of an ambient scribe for clinic note documentation during this visit. Orders: Orders C Reactive Protein Today M79.10 - Myalgia, unspecified site PT Evaluation and Treatment Today S16.1XXA - Strain of muscle, fascia and tendon at neck level, initial encounter Erythrocyte Sedimentation Rate Today M79.10 - Myalgia, unspecified site HARITHA Reflex Titer and Pattern Today M79.10 - Myalgia, unspecified site ARDEN 1 Antibody Today M79.10 - Myalgia, unspecified site
--- OUTSIDE RECORDS SUMMARY | 2025-08-19 13:50 | XMS_ITS | Patient Health Record ---
Author Organization [facility] Address [address] [place] [address] Care Team Providers Care Brass Bobbin Winder Name Role Phone Alberto Medel MD Primary Care Provider Dallas Allison Unavailable [phone] Reason For Referral No Information Medications Medication SIG (Take, Route, Frequency, Duration) Notes Start Date End Date Status Lorazepam 0.5 mg tablet one tablet Oral daily Active Omeprazole 20 MG Capsule Delayed Release 1 capsule Orally Once a day; Duration: 30 Active Vitamin D3 2000 UNIT Capsule 1 capsule Orally Once a day Active atenolol 100 mg tablet one tablet Oral o nce a day Active buPROPion HCl ER (SR) 200 MG Tablet Extended Release 12 Hour 1 tablet Orally Twice a day Active Dicyclomine HCl 10 MG Capsule 1-2 capsules Orally Four times a day prn abdominal cramps/discomfort; Duration: 30 day(s) 08/21/2017 Active Multivitamin Adults - Tablet Orally Active Social History Social History Additional Details Category Social Info Options Details Miscellaneous: Marital status: Occupation: retired Section Notes: Nonsmoker; no sig alcohol Nonsmoker; no sig alcohol Problems Problem Type SNOMED Code ICD Code Onset Dates Problem Status W/U Status Risk Notes Problem Gastro-esophagea l reflux disease without esophagitis (230364582) Gastro-esophage al reflux disease without esophagitis (K21.9) Active confirmed Problem Screening for malignant neoplasm of colon (055693949) Encounter for screening for malignant neoplasm of colon (Z12.11) Active confirmed Problem Irritable bowel syndrome with diarrhea (663254358) Irritable bowel syndrome with diarrhea (K58.0) Active confirmed Problem Fatty liver (548726256) Fatty liver (K76.0) Active confirmed Problem Right lower quadrant pain (575253325) Right lower quadrant abdominal pain (R10.31) Active confirmed Problem Diarrhea (71932588) Diarrhea, unspecified type (R19.7) Active confirmed Plan [...] Insured Coverage Start Date Coverage End Date [facility] [address] [place], [place] [id number] [phone] [id number] DARÍO ROD Self - patient is the [...] Dr. Burris HTN Depression and anxiety Denies MS,DM,CVA,Lung disease,renal dise ase Neurogenic bladder Neg. screening colonoscopy i n 06/2005 and 09/2015--diverticulosis and internal hemorrhoids Surgical History Surgery Date(Month/Year) HARJEET 2003 Right mastectomy in 2010 and reconstruct ion [facility] Bilateral inguinal hernias Left knee replacement in 2013 Bladder stimulator for urinary retention --Dr. Linda, III Parotid gland lump removal Right hip replacement 12/2016 Bilateral carpal tunnel release- Benign breast biopsy 2016
--- OUTSIDE RECORDS SUMMARY | 2025-08-19 13:50 | XMS_ITS | Patient Health Record ---
[facility] Address [address] [place] [address] Care Team Providers Care Shipping Technician Name Role Phone Sylvia Metzger Primary Care Provider Unavailab Rosanne Sandy Unavailable [phone] Jonny Colon Unavailable [phone] Allergies No Known Allergies Reason For Referral No Information Medications Medication SIG (Take, Route, Frequency, Duration) Notes Start Date End Date Status Ammonium Lactate 12 % 1 application Exte rnally to affected areas of dry skin to feet except for between the toes Twice a day; Duration: 30 days Active Omeprazole 20 MG TAKE 1 CAPSULE ONCE A DAY ORALLY 30 DAY(S) Oral; Duration: 30 Active Multivitamin - 1 tablet Orally Once a day; Duration: 30 day(s) Active Physical Therapy . . . 2-3x/week; Durat ion: 3-4 weeks 11/18/2021 Unknown Vitamin D3 2000 UNIT 1 capsule Orally On 07/19/2016 Active ASO-AFO L1902 as directed 08/16/2016 Unk nown Cephalexin 500 MG 1 capsule Orally phil ry 6 hrs; Duration: 5 day(s) Unknown ASO Ankle/Foot Stablizing AFO As directed Wear Daily; Duration: as needed 08/16/2016 Unknown Atenolol 100 MG 1 TABLET ONCE A DAY ORALLY 30 DAYS Oral; Duration: 30 Active LORazepam 0.5 MG (Schedule IV Drug) T [place] 1 TABLET BY MOUTH ONCE A DAY NEEDED FOR ANXIETY Oral; Duration: 30 Active buPROPion HCl ER (SR) 200 MG TAKE 1 TABLET BY MOUTH TWICE A DAY Oral; Duration: 90 Active Immunizations Vaccine Route Administration Date Status Comme nts Influenza Unknown 06/17/2024 Administered Influenza Unknown 06/18/2024 Administered COVID-19 Moderna Vaccine Unknown 10/30/2020 Administered COVID-19 [...] ast year? No Points 0 Interpretation Negative Problems Problem Type SNOMED Code ICD Code Onset Dates Problem Status W/U Status Risk Notes Problem Plantar wart (66456087) Plantar wart (B07.0) Active confirmed Problem Localized, primary osteoarthritis of the ankle and/or foot (896427098) Osteoarthritis of right ankle and foot (M19.071) Active confirmed Vital Signs Blood pressure diastolic 65 mm Hg 04/22/2025 Height 5 ft 8 in in 04/22/2025 Blood pressure systolic 138 mm Hg 04/22/2025 Weight 240 lbs 04/22/2025 BMI 36.49 kg/m2 04/22/2025 Procedures Procedure Date Ordered Date Performed Result Body Sit e 71031-Iops Destruction, 1-14 04/22/2025 N/A Encounters Encounter Location Date Provider Diagnosis [facility] [address] [address] 04/01/2025 Rosanne Collinsaker Left foot pain M79.672 and Plantar wart B07.0 [facility] [address] [address] 04/22/2025 Rosanne Stoddard Left foot pain M79.672 ; Plantar wart B07.0 and Xerosis of skin L85.3 Assessments Encounter Date Diagnosis (ICD Code) Assessment Notes Treatment Notes Treatment Clinical Notes Section Notes 04/01/2025 Left foot pain (ICD-10 - M79.672) 04/22/2025 Left foot pain (ICD-10 - M79.672) 04/22/2025 Plantar wart (ICD-10 - B07.0) 04/01/2025 Plantar wart (ICD-10 - B07.0) 04/22/2025 Xerosis of skin (ICD-10 - L85.3) Plan Of Treatment Pending Test Test Name Order Date [id number] Destruction, 1-14 04/22/2025 86321- Debride <25 sq cm 04/27/2021 08628 I&D ABSCESS- SIMPLE,SINGLE 021 17140 I&D ABSCESS- SIMPLE,SINGLE 022 89013-Onoi. Subungual Hematoma 6 X ray : Ankle, right 3V 11/18/2021 Insurance Providers Payer Name Payer Address Payer Phone Subscriber Number Group Number Insured Name Patient Relationship to Insured Coverage Start Date Coverage End Date [employer] [address] [place] [address] [id number] Vangie Whalen Self - patient is the insured 0 [employer] [address] [place] [address] [id number] Vangie Whalen Self - patient is the insured Medical (General) History Medical History History ICD Code Anxiety Arthritis Back,Hip,and Knee pain Cancer, breast Depression High blood pressure Menieres disease Reflux chronic sinusitis Joint implants/screws Anemia Cataracts Numbness (Neuropathy) Surgical History Surgery Date(Month/Year) lumpectomy 2000 mastectomy 2010 hysterectomy 2002 left knee replacement 2013 hip replacement 2017 bladder surgery 04/2013
== END 2025-08-19 12:16 | disposition home or self-care (01) ==
LOC: HO.HMCH 11:27
DX: I10 Essential (primary) hypertension (principal); M79.10 Myalgia, unspecified site; S16.1XXA Strain of muscle, fascia and tendon at neck level, initial encounter; R06.09 Other forms of dyspnea